=== PATIENT | female | born 1950 | race Caucasian/White ===

== ENCOUNTER 2018-04-20 20:26 | Observation (INO) ==
[2018-04-20 21:04] LABS: Hematocrit (blood only) 39.4 % (37-47); Hemoglobin 13.8 g/dL (12.0-16.0); Mean Corpuscular Volume 92.7 fL (80-100); Mean Platelet Volume 9.5 fL (7.4-10.4); Platelet Count 290 K/uL (130-400); RDW Coefficient of Variation 13.1 % (11.5-14.5); RDW Standard Deviation 44.3 fL (36.4-46.3); Red Blood Count 4.25 M/uL (4.2-5.4); White Blood Count 6.99 K/uL (4.8-10.8)
[2018-04-20 21:10] LABS: Albumin Level 4.2 gm/dl (3.4-5.0); BUN Creatinine Ratio 10.4 (10-20); Blood Urea Nitrogen 9 mg/dl (7-18); Calcium 9.4 mg/dl (8.5-10.1); Carbon Dioxide 25 mmol/L (21-32); Chloride 99 mmol/L (98-107); Creatinine Clr Calc Pharmacy 67.3 ml/min; Est GFR (African American) 78.8; Glucose 84 mg/dl (70-99); Potassium 3.8 mmol/L (3.5-5.1); Sodium 133 mmol/L (136-145)
[2018-04-20 21:13] LABS: INR 0.9 (0.9-1.1); Partial Thromboplastin Ratio 1.1; Partial Thromboplastin Time 29.2 Seconds (21.0-31.0); Prothrombin Time 9.5 Seconds (9.0-12.0)
[2018-04-20 21:15] LABS: Alanine Aminotransferase 41 U/L (12-78); Alkaline Phosphatase 91 U/L (45-117); Aspartate Aminotransferase 23 U/L (15-37); Bilirubin,Total 0.3 mg/dl (0.2-1); Globulin 4.2 gm/dl (2.5-4.0); Total Protein 8.4 gm/dl (6.4-8.2); Troponin I < 0.015 ng/ml (0-0.045)
[2018-04-20 21:21] LABS: Basophils # (auto) 0.01 K/uL (0-0.2); Basophils % (auto) 0.1 %; Eosinophils # (auto) 0.13 K/uL (0-0.5); Eosinophils % (auto) 1.9 %; Immature Granulocytes # (auto) 0.01 K/uL (0.00-0.02); Immature Granulocytes % (auto) 0.1 %; Lymphocytes # (auto) 3.66 K/uL (1.2-3.4); Lymphocytes % (auto) 52.4 %; Monocytes # (auto) 0.48 K/uL (0.11-0.59); Monocytes % (auto) 6.9 %; Neutrophils % (auto) 38.6 %
--- NOTE | 2018-04-20 21:30 | XRay Report ---
XR chest 1V portable HISTORY: Atypical Chest Pain COMPARISON: Chest 01/26/2016. FINDINGS: No pleural fusions. No pneumothorax. The heart is enlarged. There is mild central pulmonary vascular congestion without overt edema. Right basilar linear densities are noted. The left lung is otherwise clear. IMPRESSION: 1. Cardiomegaly with mild central pulmonary vascular congestion. 2. Right basilar linear densities are nonspecific but favor subsegmental atelectasis. Electronically signed by: Dougie Ledezma M.D. 04/20/2018 9:28 PM
[2018-04-20] MEDS ORDERED: NITROGLYCERIN 2% OINTMENT 30GM TUBE EXT STA (23:01)
[2018-04-20] MEDS ORDERED: ACETAMINOPHEN 500 MG TAB PO STA (23:01)
[2018-04-21 00:55] LABS: Magnesium 1.9 mg/dl (1.8-2.4)
[2018-04-21] MEDS ORDERED: OPTIRAY 320 125ml IV PRN (01:50)
[2018-04-21 01:52] LABS: NT Pro B Type Natriuretic Pept 92 pg/ml (0-900)
--- NOTE | 2018-04-21 02:07 | Emergency Department Note ---
Entered by Kayode Mera acting as a scribe for Bari Concepcion MD ED Provider Note CHIEF COMPLAINT: Chest pain HISTORY OF PRESENT ILLNESS: The patient is a 67 year old female who presents to the Emergency Room with complaints of intermittent chest pain beginning three days ago. The patient states she has been experiencing chest pain and back pain that radiates to her arms and back of the head intermittently for the past three days. She reports she has also been experiencing intermittent dizzy spells for some time now. The patient notes she was at a wrestling match this evening when she suddenly experienced her chest pain, back pain, arm pain, neck pain, and dizziness all together. She states she felt very lightheaded and almost passed out. The patient reports this was the first time all of her symptoms happened at the same time. She notes she she was given 324mg of aspirin, 3 nitroglycerin, and 4mg of Zofran. The patient states the nitroglycerin took her pain from a 10/10 to a 4/10. She reports her symptoms come on randomly, and exertion or stress do not trigger her pain. The patient notes she has not had new stressors although she does work in a stressful job. She states she has not told anyone about her symptoms, and she has had a lot of indigestion this week. The patient reports she has had shortness of breath on exertion but no chest pain on exertion. She notes a history of HLD, HTN, and a family history of heart disease. The patient states her PCP is Charline Navarro. Pt denies LOC, headache, fevers, chills, diaphoresis, visual changes, vomiting, abdominal pain, melena, hematochezia, urinary symptoms, numbness, weakness, lymphadenopathy, rash, or other complaints. REVIEW OF SYSTEMS: See HPI for pertinent positives and negatives. A total of ten systems were reviewed and were otherwise negative. PMHx/PSHx: HLD HTN SOCIAL HISTORY: Patient lives at home. PHYSICAL EXAM: GENERAL: Awake, alert, well-appearing, in no distress HENT: Normocephalic, atraumatic. Oropharynx unremarkable. EYES: Normal conjunctiva. Sclera non-icteric. NECK: Inspection normal. Non-tender. Supple. No nuchal rigidity. FROM. No masses. RESPIRATORY: Clear to auscultation. No wheezes. No rales. Normal respiratory effort. CARDIAC: Normal rate. Normal rhythm. No murmurs. No rubs. Extremities warm and well perfused. Pulses equal. No JVD. GI: Soft, non-distended. No tenderness to palpation. No rebound or guarding. No masses. RECTAL: Deferred. MUSCULOSKELETAL: Atraumatic. Chest examination reveals no tenderness. The back is symmetrical on inspection without obvious abnormality. There is no CVA tenderness to palpation. No joint edema. LOWER EXTREMITIES: Calves are equal size bilaterally and non-tender. No edema. No discoloration. NEURO: Normal sensorium. No sensory or motor deficits noted. SKIN: No rash or jaundice noted. EMERGENCY DEPARTMENT COURSE: 2147: Past medical records reviewed. The patient was evaluated in room A09A, and a complete history and physical examination were performed. 2341: I reevaluated the patient and discussed the findings with her. She verbalized agreement to a hospitalist evaluation and the treatment plan. The patient will be evaluated for further management and care. 2359: I discussed with the patient the treatment plan and the agree to it. Patient will be admitted under Dr. Luna's care. MEDICAL DECISION MAKING: Triage Nursing notes reviewed. The patient's presentation and history were concerning for chest pain. Etiologies such as cardiac ischemia, myocarditis, pericarditis, aortic dissection, pulmonary embolism, pneumonia, pneumothorax, musculoskeletal, infections, gastrointestinal, as well as others were entertained. Patient was evaluated. Prehospital ECG did not reveal any ST elevation or depression. Repeat ECG here did not reveal any ST elevation or depression. She did receive aspirin and nitro prehospital. The nitro did help with her pain. She was given Tylenol Nitropaste here. On reassessment she was doing better. The patient's CBC and chemistry panel were unremarkable. Cardiac troponin was negative. The patient has multiple risk factors for coronary artery disease. I discussed further management in the hospital. The patient felt comfortable with the plan. I gave my usual and customary discussion regarding this issue. [facility] Patient was evaluated in the ER and admitted for further treatment. IMPRESSION: Chest pain, precordial PLAN: Admit Scribe Attestation: The scribe's documentation has been prepared under my direction and personally reviewed by me in its entirety. I confirm that the note above accurately reflects all work, treatment, procedures, and medical decision making performed by me. Impression & Plan Chest pain, precordial Past Med/Surg History Medical History Hyperlipidemia Bronchitis Hypertension Surgical History Status post lumbar surgery Family History Other FHx: heart disease Social History marital status: Current Living Situation: Spouse current occupational status: employed Feels Safe at Home: Yes Smoking Status: Never smoker Hx Alcohol Use: Yes Beliefs That Will Affect Care: None Preferred Language: Macedonian Communication Ability: Effective Visual Impairment: No Limitations Hearing Ability: Normal Results & Data Vital Signs Vital Signs - 24 hr 04/20/18 20:42 04/20/18 21:46 04/20/18 22:24 Temperature 36.7 C Temperature Source Oral Sepsis Recent Fever Within 48 Hours No Sepsis New/Unexplained Change in Mental Status No Sepsis Action Taken by Nursing No Action Required Pulse Rate 65 Pulse Rate [Right Finger] 66 69 Pulse Rhythm Regular Pulse Strength Normal Respiratory Rate 18 18 18 Respiratory Effort / Characteristics Non-Labored Respiratory Depth Normal Respiratory Pattern Regular Blood Pressure 143/83 H Blood Pressure [Left Arm] 153/83 H 150/87 H Blood Pressure [Right Arm] 160/76 H Blood Pressure Mean 103 Blood Pressure Mean [Left Arm] 106 108 Blood Pressure Mean [Right Arm] 104 Blood Pressure Position Lying Blood Pressure Position [Left Arm] Blood Pressure Position [Right Arm] Lying Pulse Oximetry 98 98 99 Oxygen Delivery Method Room Air 04/20/18 23:17 04/21/18 00:08 04/21/18 01:01 Temperature Temperature Source Sepsis Recent Fever Within 48 Hours Sepsis New/Unexplained Change in Mental Status Sepsis Action Taken by Nursing Pulse Rate Pulse Rate [Right Finger] 71 73 71 Pulse Rhythm Pulse Strength Respiratory Rate 17 17 16 Respiratory Effort / Characteristics Non-Labored Spontaneous Respiratory Depth Normal Respiratory Pattern Regular Blood Pressure Blood Pressure [Left Arm] 168/96 H 144/70 H 136/75 Blood Pressure [Right Arm] Blood Pressure Mean Blood Pressure Mean [Left Arm] 120 94 95 Blood Pressure Mean [Right Arm] Blood Pressure Position Blood Pressure Position [Left Arm] Sitting Blood Pressure Position [Right Arm] Pulse Oximetry 98 95 95 Oxygen Delivery Method Room Air Room Air Room Air 04/21/18 01:53 Temperature Temperature Source Sepsis Recent Fever Within 48 Hours Sepsis New/Unexplained Change in Mental Status Sepsis Action Taken by Nursing Pulse Rate Pulse Rate [Right Finger] 67 Pulse Rhythm Pulse Strength Respiratory Rate 16 Respiratory Effort / Characteristics Respiratory Depth Respiratory Pattern Blood Pressure Blood Pressure [Left Arm] 139/64 Blood Pressure [Right Arm] Blood Pressure Mean Blood Pressure Mean [Left Arm] 89 Blood Pressure Mean [Right Arm] Blood Pressure Position Blood Pressure Position [Left Arm] Blood Pressure Position [Right Arm] Pulse Oximetry 92 Oxygen Delivery Method Room Air Home Medications Current Medication List: was personally reviewed by me Laboratory Data Attestation: I reviewed the patient's lab results. Result diagrams: 04/20/18 20:15 04/20/18 20:15 Lab Results 04/20/18 04/20/18 04/20/18 Range/Units 20:15 20:15 20:15 WBC 6.99 (4.8-10.8) K/uL RBC 4.25 (4.2-5.4) M/uL Hgb 13.8 (12.0-16.0) g/dL Hct 39.4 (37-47) % MCV 92.7 (80-100) fL MCH 32.5 (25-34) pg MCHC 35.0 (32-36) g/dL RDW Std Deviation 44.3 (36.4-46.3) fL RDW Coeff of [place]ita 13.1 (11.5-14.5) % Plt Count 290 (130-400) K/uL MPV 9.5 (7.4-10.4) fL Immature Gran % (Auto) 0.1 % Neut % (Auto) 38.6 % Lymph % (Auto) 52.4 % [place] % (Auto) 6.9 % Eos % (Auto) 1.9 % Baso % (Auto) 0.1 % Immature Gran # (Auto) 0.01 (0.00-0.02) K/uL Neut # (Auto) 2.70 (1.4-6.5) K/uL Lymph # (Auto) 3.66 H (1.2-3.4) K/uL [place] # (Auto) 0.48 (0.11-0.59) K/uL Eos # (Auto) 0.13 (0-0.5) K/uL Baso # (Auto) 0.01 (0-0.2) K/uL PT 9.5 (9.0-12.0) Seconds INR 0.9 (0.9-1.1) APTT 29.2 (21.0-31.0) Seconds PTT Ratio 1.1 Sodium 133 L (136-145) mmol/L Potassium 3.8 (3.5-5.1) mmol/L Chloride 99 (98-107) mmol/L Carbon Dioxide 25 (21-32) mmol/L Anion Gap 8.0 (3-11) BUN 9 (7-18) mg/dl Creatinine 0.89 (0.6-1.2) mg/dl Est Cr Clr Drug Dosing 67.3 ml/min Est GFR ( Amer) 78.8 Est GFR (Non-Af Amer) 68.0 BUN/Creatinine Ratio 10.4 (10-20) Glucose 84 (70-99) mg/dl Calcium 9.4 (8.5-10.1) mg/dl Magnesium 1.9 (1.8-2.4) mg/dl Total Bilirubin 0.3 (0.2-1) mg/dl AST 23 (15-37) U/L ALT 41 (12-78) U/L Alkaline Phosphatase 91 (45-117) U/L Troponin I < 0.015 (0-0.045) ng/ml NT-Pro-B Natriuret Pep 92 (0-900) pg/ml Total Protein 8.4 H (6.4-8.2) gm/dl Albumin 4.2 (3.4-5.0) gm/dl Globulin 4.2 H (2.5-4.0) gm/dl Albumin/Globulin Ratio 1.0 (0.9-2) Lipase 155 (73-393) U/L Administered Medications Ioversol (Optiray 320 125ml) 118 ml IV ONCE PRN PRN Reason: Interaction Checking Stop: 04/25/18 01:49 Last Admin: 04/21/18 01:51 Dose: 1 ml Discontinued Medications Acetaminophen (Tylenol) 1,000 mg PO NOW STA Stop: 04/20/18 23:02 Last Admin: 04/20/18 23:19 Dose: 1,000 mg Nitroglycerin (Nitro-Bid 2%) 0.5 inch EXT NOW STA Stop: 04/20/18 23:02 Last Admin: 04/20/18 23:19 Dose: 0.5 inch Imaging Data Radiologist's Impression: Radiology results as stated below per my review and the radiologist's interpretation: XR chest 1V portable HISTORY: Atypical Chest Pain COMPARISON: Chest 01/26/2016. FINDINGS: No pleural fusions. No pneumothorax. The heart is enlarged. There is mild central pulmonary vascular congestion without overt edema. Right basilar linear densities are noted. The left lung is otherwise clear. IMPRESSION: 1. Cardiomegaly with mild central pulmonary vascular congestion. 2. Right basilar linear densities are nonspecific but favor subsegmental atelectasis. ECG Data Attestation: I personally reviewed and interpreted this ECG as follows: Indication: chest pain Rate (beats per minute): 65 Rhythm: normal sinus Findings: + prolonged QT; no PAC, no PVC, no ST depression and no ST elevation Comparison ECG Date: from (01/26/2016) Change: no significant change Additional Comments: EKG 2 Normal Sinus [address] elevation, no ST depression, NO PAC, NO PVC, no significant change from first Pre Hospital Normal Sinus at [address] elevation, no ST depression, NO PAC, NO PVC, no significant change from first Blood Pressure Blood Pressure Findings: Elevated blood pressure Blood Pressure Disposition: further management by hospitalist Discharge Plan Visit Data Chief Complaint: Chest Pain Stated Complaint: CHEST PAIN ED Provider: Bari Concepcion Discharge Problem: Chest pain, precordial Patient Disposition: Being Evaluated by Hospitalist Forms Stand Alone Forms: Call Back Authorization, [facility] Prescriptions Prescriptions: No Action meclizine 12.5 mg Tablet 12.5 mg PO TID PRN (Reason: dizzy) RF: 0 buspirone 10 mg Tablet 10 mg PO BID RF: 0 fluticasone [Flonase Allergy Relief] 50 mcg/actuation [place],Suspension 2 spray INTRANASAL DAILY RF: 0 escitalopram oxalate [Lexapro] 20 mg Tablet 20 mg PO DAILY RF: 0 bupropion HCl 150 mg Tablet Sustained-Release 12 Hr 150 mg PO BID RF: 0 atorvastatin [Lipitor] 10 mg Tablet 10 mg PO DAILY RF: 0 levothyroxine 75 mcg Tablet 75 mcg PO DAILY RF: 0 losartan 25 mg Tablet 25 mg PO DAILY RF: 0 omeprazole 20 mg Capsule,Delayed Release(Dr/Ec) 20 mg PO DAILY RF: 0 vitamin B complex Tablet 1 tab PO DAILY RF: 0 ranitidine HCl 150 mg Capsule 150 mg PO BID RF: 0 albuterol sulfate 90 mcg/actuation Hfa Aerosol Inhaler 2 puff INHALATION QID PRN (Reason: Shortness Of Breath) RF: 0 cholecalciferol (vitamin D3) [Vitamin D3] 2,000 unit Capsule 2,000 unit PO DAILY RF: 0 Referrals Referrals: Cecilia Quarles DO [Primary Care Provider] - The scribe's documentation has been prepared under my direction and personally reviewed by me in its entirety. I confirm that the note above accurately reflects all work, treatment, procedures, and medical decision making performed by me.
--- NOTE | 2018-04-21 02:22 | History & Physical Report ---
Date of Service April 21, 2018 Assessment & Plan (1) Chest pain: Headache, neck pain symptoms secondary to hypertensive urgency Unclear precipitant hypothyroidism, on levothyroxine mood disorder, symptoms at baseline OBS Medical telemetry Titrate home Losartan TTE RE chest pain Check TSH DVT prophylaxis. Lovenox subcu Full code History of Present Illness Chief Complaint: Chest pain Primary Care Provider: Cecilia Quarles History obtained from patient and records. Medical history significant for hypertension, hypothyroidism, mood disorder. 3 days history of substernal discomfort going to both arms, neck and head, and shoulder blades. No unusual stress, dietary indiscretion, or trauma. SBP noted to be 200s today while watching a wrestling match. Some improvement of chest pain after nitroglycerin intake. Allergies Allergy/AdvReac Type Severity Reaction Status Date / Time Sulfa (Sulfonamide Allergy Unknown Unknown Verified 04/20/18 21:53 Antibiotics) codeine AdvReac Intermediate CONFUSION Verified 04/20/18 21:53 Home Medications Home Medications Medication Instructions Recorded Confirmed Type albuterol sulfate 2 puff INHALATION QID PRN 11/25/17 04/20/18 History atorvastatin [Lipitor] 10 mg PO DAILY 11/25/17 04/20/18 History bupropion HCl 150 mg PO BID 11/25/17 04/20/18 History cholecalciferol (vitamin D3) 2,000 unit PO DAILY 11/25/17 04/20/18 History [Vitamin D3] levothyroxine 75 mcg PO DAILY 11/25/17 04/20/18 History losartan 25 mg PO DAILY 11/25/17 04/20/18 History omeprazole 20 mg PO DAILY 11/25/17 04/20/18 History ranitidine HCl 150 mg PO BID 11/25/17 04/20/18 History vitamin B complex 1 tab PO DAILY 11/25/17 04/20/18 History buspirone 10 mg PO BID 04/20/18 04/20/18 History escitalopram oxalate [Lexapro] 20 mg PO DAILY 04/20/18 04/20/18 History fluticasone [Flonase Allergy 2 spray INTRANASAL DAILY 04/20/18 04/20/18 History Relief] meclizine 12.5 mg PO TID PRN 04/20/18 04/20/18 History Past Med/Surg History Medical History Hyperlipidemia Bronchitis Hypertension Surgical History Status post lumbar surgery Family History Other FHx: heart disease Social History marital status: Current Living Situation: Spouse Current Living Situation Comment: Lives with spouse current occupational status: employed 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 Other Information That Helps Us Care for You: No Feels Safe at Home: Yes Safety Concerns: Feels Safe At This Time Smoking Status: Never smoker Hx Alcohol Use: Yes Alcohol type: wine Alcohol Intake Frequency: 0-2 drinks per day Hx Substance Use: No Beliefs That Will Affect Care: None Preferred Language: Zimbabwean Communication Ability: Effective 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 Gig 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 Required: No Review of Systems As per HPI, all 10 systems reviewed, all other ROS negative Physical Exam 2 Vital Signs (Past 24 Hours): Last Vital Signs Temp 36.7 C 04/20/18 20:42 Pulse 67 04/21/18 01:53 Resp 16 04/21/18 01:53 BP 139/64 04/21/18 01:53 Pulse Ox 92 04/21/18 01:53 Physical Exam: GENERAL: Comfortable, slightly anxious, pleasant, obese, no respiratory distress SKIN: Normal color, warm HEENT: [place] palpebral conjunctivae, no ptosis, dry buccal mucosa NECK : Supple, short, no tenderness CHEST : CTA, no tenderness HEART : RRR, no obvious murmurs ABDOMEN: Some distention, nontender EXTREMITIES : No LE swelling/tenderness, no other conspicuous deformities noted NEUROLOGIC : Coherent, no facial asymmetry, no other gross focality Results & Data Laboratory Results Laboratory Results WBC 6.99 K/uL (4.8-10.8) 04/20/18 20:15 RBC 4.25 M/uL (4.2-5.4) 04/20/18 20:15 Hgb 13.8 g/dL (12.0-16.0) 04/20/18 20:15 Hct 39.4 % (37-47) 04/20/18 20:15 MCV 92.7 fL (80-100) 04/20/18 20:15 MCH 32.5 pg (25-34) 04/20/18 20:15 MCHC 35.0 g/dL (32-36) 04/20/18 20:15 RDW Std Deviation 44.3 fL (36.4-46.3) 04/20/18 20:15 RDW Coeff of Clarita 13.1 % (11.5-14.5) 04/20/18 20:15 Plt Count 290 K/uL (130-400) 04/20/18 20:15 MPV 9.5 fL (7.4-10.4) 04/20/18 20:15 Immature Gran % (Auto) 0.1 % 04/20/18 20:15 Neut % (Auto) 38.6 % 04/20/18 20:15 Lymph % (Auto) 52.4 % 04/20/18 20:15 [place] % (Auto) 6.9 % 04/20/18 20:15 Eos % (Auto) 1.9 % 04/20/18 20:15 Baso % (Auto) 0.1 % 04/20/18 20:15 Immature Gran # (Auto) 0.01 K/uL (0.00-0.02) 04/20/18 20:15 Neut # (Auto) 2.70 K/uL (1.4-6.5) 04/20/18 20:15 Lymph # (Auto) 3.66 K/uL (1.2-3.4) H 04/20/18 20:15 [place] # (Auto) 0.48 K/uL (0.11-0.59) 04/20/18 20:15 Eos # (Auto) 0.13 K/uL (0-0.5) 04/20/18 20:15 Baso # (Auto) 0.01 K/uL (0-0.2) 04/20/18 20:15 PT 9.5 Seconds (9.0-12.0) 04/20/18 20:15 INR 0.9 (0.9-1.1) 04/20/18 20:15 APTT 29.2 Seconds (21.0-31.0) 04/20/18 20:15 PTT Ratio 1.1 04/20/18 20:15 Sodium 133 mmol/L (136-145) L 04/20/18 20:15 Potassium 3.8 mmol/L (3.5-5.1) 04/20/18 20:15 Chloride 99 mmol/L (98-107) 04/20/18 20:15 Carbon Dioxide 25 mmol/L (21-32) 04/20/18 20:15 Anion Gap 8.0 (3-11) 04/20/18 20:15 BUN 9 mg/dl (7-18) 04/20/18 20:15 Creatinine 0.89 mg/dl (0.6-1.2) 04/20/18 20:15 Est Cr Clr Drug Dosing 67.3 ml/min 04/20/18 20:15 Est GFR ( Amer) 78.8 04/20/18 20:15 Est GFR (Non-Af Amer) 68.0 04/20/18 20:15 BUN/Creatinine Ratio 10.4 (10-20) 04/20/18 20:15 Glucose 84 mg/dl (70-99) 04/20/18 20:15 Calcium 9.4 mg/dl (8.5-10.1) 04/20/18 20:15 Magnesium 1.9 mg/dl (1.8-2.4) 04/20/18 20:15 Total Bilirubin 0.3 mg/dl (0.2-1) 04/20/18 20:15 AST 23 U/L (15-37) 04/20/18 20:15 ALT 41 U/L (12-78) 04/20/18 20:15 Alkaline Phosphatase 91 U/L (45-117) 04/20/18 20:15 Troponin I < 0.015 ng/ml (0-0.045) 04/20/18 20:15 NT-Pro-B Natriuret Pep 92 pg/ml (0-900) 04/20/18 20:15 Total Protein 8.4 gm/dl (6.4-8.2) H 04/20/18 20:15 Albumin 4.2 gm/dl (3.4-5.0) 04/20/18 20:15 Globulin 4.2 gm/dl (2.5-4.0) H 04/20/18 20:15 Albumin/Globulin Ratio 1.0 (0.9-2) 04/20/18 20:15 Lipase 155 U/L (73-393) 04/20/18 20:[address] head initial read no acute pathology CT angio initial read: No PE, no aortic dissection EKG as per my interpretation: Rate 60, NSR, T wave flattening inferior leads
[2018-04-21] MEDS ORDERED: LORazepam 0.5 MG/1 ML VIAL IV PRN (03:45)
[2018-04-21] MEDS ORDERED: NITROGLYCERIN SL 0.4 MG/TAB TAB SL PRN (03:45)
[2018-04-21] MEDS ORDERED: MoRPHine SULFATE 4 MG/ML 1 ML CARP\\VIAL IV PRN (03:45)
[2018-04-21] MEDS ORDERED: PROCHLORPERAZINE 5 MG in SYRINGE 4 ML IV PRN (03:45)
[2018-04-21] MEDS ORDERED: NSS + 20MEQ KCL 20 MEQ/1,000 ML BAG IV STA (04:05)
[2018-04-21] MEDS ORDERED: NSS + 20MEQ KCL 20 MEQ/1,000 ML BAG IV SCH (04:15)
[2018-04-21] MEDS: LOSARTAN POTASSIUM 50 MG TAB PO SCH (05:11)
[2018-04-21] MEDS: LEVOTHYROXINE SODIUM 75 MCG TABLET PO SCH (05:12)
[2018-04-21 06:22] LABS: Basophils # (auto) 0.01 K/uL (0-0.2); Basophils % (auto) 0.2 %; Eosinophils # (auto) 0.07 K/uL (0-0.5); Eosinophils % (auto) 1.3 %; Hematocrit (blood only) 36.3 % (37-47); Hemoglobin 12.4 g/dL (12.0-16.0); Lymphocytes # (auto) 1.99 K/uL (1.2-3.4); Lymphocytes % (auto) 35.8 %; Mean Corpuscular Hgb Conc 34.2 g/dL (32-36); Mean Platelet Volume 8.9 fL (7.4-10.4); Monocytes # (auto) 0.48 K/uL (0.11-0.59); Monocytes % (auto) 8.6 %; Neutrophils # (auto) 3.01 K/uL (1.4-6.5); Neutrophils % (auto) 54.1 %; Platelet Count 226 K/uL (130-400); RDW Coefficient of Variation 13.2 % (11.5-14.5); Red Blood Count 3.86 M/uL (4.2-5.4); White Blood Count 5.56 K/uL (4.8-10.8)
--- NOTE | 2018-04-21 06:43 | CT Scan Report ---
CT head/brain wo con CT DOSE: 537.48 mGy.cm HISTORY: Mental status change andrea TECHNIQUE: Multiaxial CT images of the head were performed without the use of intravenous contrast. A dose lowering technique was utilized adhering to the principles of ALARA. Comparison: 11/07/2014 Findings: The paranasal sinuses and mastoid air cells are clear. The calvarium and skull base are int act. The ventricles and sulci are within normal limits. There is no mass, hematoma, midline shift, or acute infarct. Impression: No acute intracranial abnormality. The above report was generated using voice recognition software. It may contain grammatical, syntax or spelling errors. Electronically signed by: Quentin Keith M.D. 04/21/2018 6:42 AM
[2018-04-21 06:56] LABS: BUN Creatinine Ratio 8.1 (10-20); Calcium 8.6 mg/dl (8.5-10.1); Creatinine Clr Calc Pharmacy 66.2 ml/min; Est GFR (African American) 74.7; Est GFR (Non-African American) 64.5; Potassium 4.1 mmol/L (3.5-5.1)
--- NOTE | 2018-04-21 07:30 | CT Scan Report ---
CT ANGIOGRAPHY OF THE CHEST, ABDOMEN, AND PELVIS CLINICAL HISTORY: Chest and back pain. Evaluate for dissection. COMPARISON STUDY: Chest radiograph April 20, 2018. TECHNIQUE: Before and following the IV administration of 118 mL of Optiray-320, helical axial images of the chest, abdomen and pelvis were obtained. Maximal intensity projections and sagittal and coron al reformats were viewed on an independent 3D workstation. IV contrast was administered without comp lication. Automated exposure control was utilized for the study. A dose lowering technique was util ized adhering to the principles of ALARA. CT DOSE: 1859.54 mGy.cm FINDINGS: Caliber of the thoracic aorta is normal. There is moderate plaque of the descending thorac ic aorta. There is no intramural hematoma or dissection within the thoracic aorta. The heart is mildl y enlarged. There is moderate coronary artery calcification. There is no pericardial effusion. No enl arged thoracic lymph nodes are present. No pulmonary emboli are identified. There is no consolidation to suggest pneumonia. No pneumothorax or pleural effusion is noted. Central airways are patent. Ther e are bilateral rib fractures are noted. Upper abdomen is unremarkable. IMPRESSION: 1. No thoracic aortic dissection. 2. No acute intrathoracic findings. 3. Mild cardiomegaly. 4. Moderate coronary artery calcification. Electronically signed by: Kashmir Davis M.D. 04/21/2018 7:29 AM
[2018-04-21] MEDS: BuPROPion SR 150 MG TABCR PO SCH ×2 (08:30→20:54)
[2018-04-21] MEDS: VITAMIN B COMPLEX TAB PO SCH (08:30)
[2018-04-21] MEDS: PANTOprazole 40 MG TAB PO SCH (08:30)
[2018-04-21] MEDS: ASPIRIN 81 MG ECTAB PO SCH (08:30)
[2018-04-21] MEDS: ATORVASTATIN 10 MG TAB PO SCH (08:30)
[2018-04-21] MEDS: FLUTICASONE PROPIONATE NA SPR 16 GM BTL NAE SCH (08:31)
[2018-04-21] MEDS: TRAMADOL HCL 50 MG TABLET PO PRN ×2 (08:38→18:46)
[2018-04-21] MEDS: ENOXAPARIN INJ 40 MG/0.4 ML SYR SQ SCH (08:40)
[2018-04-21] MEDS: ACETAMINOPHEN 325 MG TAB PO PRN (10:35)
[2018-04-21] MEDS ORDERED: MECLIZINE 12.5 MG TAB PO PRN (11:09)
[2018-04-21] MEDS: DOXYCYCLINE HYCLATE 100 MG CAP PO SCH ×2 (12:17→20:54)
--- NOTE | 2018-04-21 17:47 | Hospitalist Progress Note ---
Date of Service April 21, 2018 Assessment & Plan (1) Chest pain: Headache Likely secondary to hypertension and possible sinusitits CT head: No acute intracranial abnormality. Started on Doxycyline for possible sinusititis Better BP control Chest Pain: --CTA: No thoracic aortic dissection. No acute intrathoracic findings. Mild cardiomegaly. Moderate coronary artery calcification. --ECHO:No segmental wall motion abnormalities --Troponin X 2: Negative --Chest pain likely secondary to HTN --Improving Hypertensive Urgency: Losartan dose increased to 50mg daily Monitor Chronic Vertigo: Meclizine PRN Advised to FU with ENT as outpatient Hypothyroidism Continue levothyroxine Elevated TSH Repeat labs in AM Mood disorder: Continue home meds DVT Px: Lovenox SQ Code Status: Full Code Subjective Patient is seen and examined at bedside Patient states chest pain much improved Reports sinus pressure associated with headache Denies dyspnea, change in vision Reports chronic vertigo Physical Exam 2 Vital Signs (Past 24 Hours): Last Vital Signs Temp 36.8 C 04/21/18 15:36 Pulse 68 04/21/18 16:00 Resp 18 04/21/18 15:36 BP 155/87 H 04/21/18 15:36 Pulse Ox 93 04/21/18 15:36 Physical Exam: Physical Exam: Vitals signs as noted above General Appearance:Obese, no apparent distress Head: normocephalic, Atraumatic, Mild sinus tenderness Eyes: normal inspection, EOMI Neck: supple, Trachea midline Respiratory/Chest: Normal breath sounds, CTA Cardiovascular: S1, S2, No murmur Abdomen/GI:Soft, Non tender, Bowel sounds present Extremities/Musculoskelatal:normal inspection, no edema Neurologic/Psych:AAOX3, grossly no focal neurological deficits Skin: normal color, warm Results & Data Laboratory Results Short CBC 04/20/18 04/21/18 Range/Units 20:15 06:12 WBC 6.99 5.56 (4.8-10.8) K/uL Hgb 13.8 12.4 (12.0-16.0) g/dL Hct 39.4 36.3 L (37-47) % Plt Count 290 226 (130-400) K/uL BMP 04/20/18 04/21/18 20:15 06:12 Sodium 133 L 135 L Potassium 3.8 4.1 Chloride 99 101 Carbon Dioxide 25 27 BUN 9 8 Creatinine 0.89 0.93 Glucose 84 91 Calcium 9.4 8.6 Cardiac Enzymes 04/20/18 04/21/18 Range/Units 20:15 02:47 Troponin I < 0.015 < 0.015 (0-0.045) ng/ml Liver Function 04/20/18 Range/Units 20:15 Total Bilirubin 0.3 (0.2-1) mg/dl AST 23 (15-37) U/L ALT 41 (12-78) U/L Alkaline Phosphatase 91 (45-117) U/L Albumin 4.2 (3.4-5.0) gm/dl
[2018-04-22] MEDS: LEVOTHYROXINE SODIUM 75 MCG TABLET PO SCH (06:14)
[2018-04-22 07:51] LABS: T4 Free Thyroxine 1.12 ng/dl (0.8-1.6)
[2018-04-22] MEDS: LOSARTAN POTASSIUM 50 MG TAB PO SCH (08:10)
[2018-04-22] MEDS: BuPROPion SR 150 MG TABCR PO SCH (08:10)
[2018-04-22] MEDS: PANTOprazole 40 MG TAB PO SCH (08:10)
[2018-04-22] MEDS: ASPIRIN 81 MG ECTAB PO SCH (08:11)
[2018-04-22] MEDS: DOXYCYCLINE HYCLATE 100 MG CAP PO SCH (08:11)
[2018-04-22] MEDS: VITAMIN B COMPLEX TAB PO SCH (08:11)
[2018-04-22] MEDS: ATORVASTATIN 10 MG TAB PO SCH (08:11)
[2018-04-22] MEDS: FLUTICASONE PROPIONATE NA SPR 16 GM BTL NAE SCH (08:11)
[2018-04-22] MEDS: ENOXAPARIN INJ 40 MG/0.4 ML SYR SQ SCH (08:12)
[2018-04-22] MEDS: ACETAMINOPHEN 325 MG TAB PO PRN (08:16)
[2018-04-22] MEDS ORDERED: AMLODIPINE BESYLATE 5 MG TAB PO ONE (10:30)
--- NOTE | 2018-04-22 14:38 | Hospitalist Progress Note ---
Date of Service April 22, 2018 Assessment & Plan (1) Chest pain: Headache Likely secondary to hypertension and possible sinusitits CT head: No acute intracranial abnormality. Continue Doxycyline for possible sinusititis Better BP control Chest Pain: --CTA: No thoracic aortic dissection. No acute intrathoracic findings. Mild cardiomegaly. Moderate coronary artery calcification. --ECHO:No segmental wall motion abnormalities --Troponin X 2: Negative --Chest pain likely secondary to HTN --Chest pain resolved Hypertensive Urgency: Losartan dose increased to 50mg daily Added Coreg Monitor Chronic Vertigo: Meclizine PRN Advised to FU with ENT as outpatient Hypothyroidism Continue levothyroxine Mood disorder: Continue home meds DVT Px: Lovenox SQ Code Status: Full Code Subjective Patient is seen and examined at bedside Doing much better today Chest pain/discomfort resolved Headche is improving Denies dyspnea, change in vision Reports chronic vertigo Family at bedside Physical Exam 2 Vital Signs (Past 24 Hours): Last Vital Signs Temp 36.7 C 04/22/18 11:42 Pulse 74 04/22/18 13:30 Resp 18 04/22/18 11:42 BP 161/89 H 04/22/18 13:30 Pulse Ox 91 04/22/18 11:42 Physical Exam: Physical Exam: Vitals signs as noted above General Appearance:Obese, no apparent distress Head: normocephalic, Atraumatic, Mild sinus tenderness Eyes: normal inspection, EOMI Neck: supple, Trachea midline Respiratory/Chest: Normal breath sounds, CTA Cardiovascular: S1, S2, No murmur Abdomen/GI:Soft, Non tender, Bowel sounds present Extremities/Musculoskelatal:normal inspection, no edema Neurologic/Psych:AAOX3, grossly no focal neurological deficits Skin: normal color, warm
--- NOTE | 2018-04-22 14:43 | Discharge Summary ---
Date of Service April 22, 2018 Admission HPI Per Admitting Provider History obtained from patient and records. Medical history significant for hypertension, hypothyroidism, mood disorder. 3 days history of substernal discomfort going to both arms, neck and head, and shoulder blades. No unusual stress, dietary indiscretion, or trauma. SBP noted to be 200s today while watching a wrestling match. Some improvement of chest pain after nitroglycerin intake. Admission Exam Per Admitting Provider GENERAL: Comfortable, slightly anxious, pleasant, obese, no respiratory distress SKIN: Normal color, warm HEENT: [place] palpebral conjunctivae, no ptosis, dry buccal mucosa NECK : Supple, short, no tenderness CHEST : CTA, no tenderness HEART : RRR, no obvious murmurs ABDOMEN: Some distention, nontender EXTREMITIES : No LE swelling/tenderness, no other conspicuous deformities noted NEUROLOGIC : Coherent, no facial asymmetry, no other gross focality Principal Diagnosis Discharge Information Discharge Diagnosis Atypical Chest pain Hypertensive Urgency Possible sinusitis Discharge Goals Decrease discomfort,Improve disease control, Improve function Discharge Activity Limitations Resume your previous activity Discharge Data Allergies Allergy/AdvReac Type Severity Reaction Status Date / Time Sulfa (Sulfonamide Allergy Unknown Unknown Verified 04/20/18 21:53 Antibiotics) codeine AdvReac Intermediate CONFUSION Verified 04/20/18 21:53 Consultations 04/21/18 00:04 ED Decision to Admit Stat Procedures Performed CT Head: No acute intracranial abnormality. Chest CTA: 1. No thoracic aortic dissection. 2. No acute intrathoracic findings. 3. Mild cardiomegaly. 4. Moderate coronary artery calcification. Ordered Studies 04/21/18 00:48 CT angio chest dissec wo/w con Urgent CT head/brain wo con [facility] Hospital Course (1) Chest pain: Headache Likely secondary to hypertension and possible sinusitits CT head: No acute intracranial abnormality. Continue Doxycyline for possible sinusititis Better BP control Chest Pain: --CTA: No thoracic aortic dissection. No acute intrathoracic findings. Mild cardiomegaly. Moderate coronary artery calcification. --ECHO:No segmental wall motion abnormalities --Troponin X 2: Negative --Chest pain likely secondary to HTN --Chest pain resolved Hypertensive Urgency: Losartan dose increased to 50mg daily Added Coreg Monitor Chronic Vertigo: Meclizine PRN Advised to FU with ENT as outpatient Hypothyroidism Continue levothyroxine Mood disorder: Continue home meds DVT Px: Lovenox SQ Code Status: Full Code Total Time Total Time Spent Total Time Spent (In Minutes): 32 minutes Total Time Includes: Examination of the Patient, Discharge Planning, Medication Reconciliation and Other Discharge Plan Discharge Items Patient Disposition: Home - Self-Care Reason For Visit: CP Discharge Diagnosis: Atypical Chest pain Hypertensive Urgency Possible sinusitis Discharge Goals: Decrease discomfort, Improve disease control and Improve function Activity: Resume your previous activity Non-emergency contact: Primary Care Provider Call non-emergency contact if: you have any medication questions, your symptoms worsen, your pain is not controlled, your pain is worsening, your pain is unusual for you, your pain is concerning for you and you have a fever Diet: Heart Healthy Addtl Provider Instructions: Follow up with your PCP in 1 week Complete the antibiotic course as prescribed Seek immediate medical attention if your symptoms reoccur or worsen Prescriptions: New losartan 50 mg Tablet 50 mg PO QAM 30 Days Qty: 30 RF: 0 doxycycline hyclate 100 mg Capsule 100 mg PO BID 6 Days Qty: 12 RF: 0 carvedilol 3.125 mg Tablet 3.125 mg PO BID 30 Days Qty: 60 RF: 0 Continue meclizine 12.5 mg Tablet 12.5 mg PO TID PRN (Reason: dizzy) RF: 0 buspirone 10 mg Tablet 10 mg PO BID RF: 0 fluticasone [Flonase Allergy Relief] 50 mcg/actuation [place],Suspension 2 spray INTRANASAL DAILY RF: 0 escitalopram oxalate [Lexapro] 20 mg Tablet 20 mg PO DAILY RF: 0 bupropion HCl 150 mg Tablet Sustained-Release 12 Hr 150 mg PO BID RF: 0 atorvastatin [Lipitor] 10 mg Tablet 10 mg PO DAILY RF: 0 levothyroxine 75 mcg Tablet 75 mcg PO DAILY RF: 0 omeprazole 20 mg Capsule,Delayed Release(Dr/Ec) 20 mg PO DAILY RF: 0 vitamin B complex Tablet 1 tab PO DAILY RF: 0 ranitidine HCl 150 mg Capsule 150 mg PO BID RF: 0 albuterol sulfate 90 mcg/actuation Hfa Aerosol Inhaler 2 puff INHALATION QID PRN (Reason: Shortness Of Breath) RF: 0 cholecalciferol (vitamin D3) [Vitamin D3] 2,000 unit Capsule 2,000 unit PO DAILY RF: 0 Discontinued losartan 25 mg Tablet 25 mg PO DAILY RF: 0 Stand-Alone Forms: [facility] Discharge Orders: Discharge Order (Routine); Ordered 04/22/18 Ordered By: Sheldon Aranda Admission Data Admit Date/Time: 04/21/18 02:35 Attending Provider: Sheldon Aranda Admit Provider: David Luna Primary Care Provider: Cecilia Quarles Other Providers: David Luna Service: Telemetry Other Interventions: Discharge Summary Assessment (RN) Last Done: 04/22/18 15:32 Pending Studies at Discharge: No DC Date/Time DO NOT enter until pt leaves facility: 04/22/18 16:13
[2018-04-22] MEDS ORDERED: CARVEDILOL 3.125 MG TAB PO SCH (21:00)
[2018-04-22] MEDS ORDERED: CARVEDILOL 6.25 MG TAB PO SCH (21:00)
[2018-04-23] MEDS ORDERED: AMLODIPINE BESYLATE 5 MG TAB PO SCH (09:00)
== END 2018-04-22 16:13 | disposition home or self-care (01) ==
LOC: 2N 20:26 → ED 20:26 → 2N 04-21 02:57

== ENCOUNTER 2019-03-04 16:43 | Inpatient (IN) ==
--- OUTSIDE RECORDS SUMMARY | 2019-03-04 16:45 | External Medical Summary | Continuity of Care Document ---
:1950 Author Name Jaja Mckeon Address Unavailable Unavailable , Care Team Providers Name Role Phone Celio Richter M.D. Unavailable [email or web address], [email or web address] Unavailable Unavailable Unavailable Unavailable Unavailable Problems Arthritis (716.90) (M19.90) Encounter for routine gynecological exam ination with Papanicolaou smear of cervix (V72.31) (Z01.419) Menopausal symptoms (627.2) (N95.1) Hypertension (401.9) (I10) Allergies and Adverse Reactions Sulfa Drugs (Allergy) Medications Omeprazole CPDR Refills: 0 Benicar TABS Refills: 0 Citalopram Hydrobromide TABS Refills: 0 Levothyroxine Sodium TABS Refills: 0 Astelin SOLN Refills: 0 Fexofenadine HCl TABS Refills: 0 Meloxicam TABS Refills: 0 Procedures Procedures not documented Immunizations Immunizations not documented Plan of Treatment Planned Observations Planned Goals not documented Results No Known Results Results not documented
[2019-03-04] MEDS ORDERED: ACETAMINOPHEN 500 MG TAB PO STA (17:04)
[2019-03-04] MEDS ORDERED: KETOROLAC TROMETHAMINE 15 MG/ML VIAL IV STA (17:04)
[2019-03-04] MEDS ORDERED: HydrALAZINE HCL 20 MG/ML VIAL IV STA (17:06)
[2019-03-04] MEDS ORDERED: SODIUM CHLORIDE 0.9% 500 ML IV SCH (17:15)
--- NOTE | 2019-03-04 17:21 | Emergency Department Note ---
Entered by Mona Burger acting as a scribe for History of Present Illness General Chief complaint: Headache Stated complaint: HEADACHE, BP REALLY HIGH, NOT COMPREHENDING THINGS Time Seen by Provider: 03/04/19 16:56 Source: patient History of Present Illness Onset (ago): week(s) 1 Location: head Severity: similar to prior episodes Pain Consistency: + intermittent Maximum Pain Intensity: 5 Current Pain Intensity: 5 Quality: + aching and + dull Relieved By: + medication (Excedrin) Exacerbated By: + other (deep breathing) Associated symptoms: + confusion, + chest pain (chest tightness), + headaches and + other (Positive right arm pain, hypertension, dysuria. Negative polyuria, diarrhea.); no nausea/vomiting Treatments prior to arrival: none The patient is a 68 year old female presenting to the Emergency Department complaining of intermittent headaches starting 1 week ago. The patient reports that she has been experiencing headaches located behind her face. She states that these headaches started after she had a migraine about a week ago. She explains that she took Excedrin that helped relieve her migraine. She notes that she currently has a headache and rates it 5/10. She states that her chest feels tight and that deep breathing worsens her chest tightness. She adds that there has been a dull, aching pain in her right arm for the past week. The patient reports that she became confused earlier today in [facility] but that this confusion has resolved. She states that once she got home from [facility] she took her blood pressure which was elevated. She notes that she has experienced hypertension before as her blood pressure medication had to be switched in December 2018. She adds that she has been experiencing dysuria. The patient reports that she didnt take any medications for her symptoms [employer]SEM[employer]. She denies polyuria, nausea, vomiting, diarrhea and medication non-compliance. Home Medications Home Medications Medication Instructions Recorded Confirmed Type albuterol sulfate 2 puff INHALATION QID PRN 11/25/17 03/04/19 History atorvastatin [Lipitor] 10 mg PO QAM 11/25/17 03/04/19 History bupropion HCl 150 mg PO BID 11/25/17 03/04/19 History cholecalciferol (vitamin D3) 2,000 unit PO QAM 11/25/17 03/04/19 History [Vitamin D3] levothyroxine 75 mcg PO QAM 11/25/17 03/04/19 History ranitidine HCl 150 mg PO BID 11/25/17 03/04/19 History vitamin B complex 1 tab PO HS 11/25/17 03/04/19 History buspirone 10 mg PO BID 04/20/18 03/04/19 History escitalopram oxalate [Lexapro] 20 mg PO QAM 04/20/18 03/04/19 History fluticasone propionate [Flonase 2 spray INTRANASAL QAM 04/20/18 03/04/19 History Allergy Relief] meclizine 12.5 mg PO TID PRN 04/20/18 03/04/19 History pantoprazole 40 mg PO QAM 03/04/19 03/04/19 History Allergies Allergy/AdvReac Type Severity Reaction Status Date / Time Sulfa (Sulfonamide Allergy Unknown Swelling Verified 03/04/19 17:36 Antibiotics) codeine AdvReac Intermediate CONFUSION Verified 03/04/19 17:36 Past Med/Surg History Medical History Bronchitis Hyperlipidemia Hypertension Surgical History Status post lumbar surgery Family History Other FHx: heart disease Social History Preferred Language: Niuean Communication Ability: Effective Visual Impairment: No Limitations Hearing Ability: Normal 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 and A total of 10 systems reviewed and were otherwise negative Physical Exam Vital Signs Vital Signs - 24 hr 03/04/19 16:47 03/04/19 17:20 03/04/19 17:31 Temperature 36.7 C Temperature Source Oral Pulse Rate 61 Pulse Rate [Apical] 61 Pulse Rhythm [Apical] Regular Respiratory Rate 18 18 Respiratory Effort / Characteristics Non-Labored Non-Labored Spontaneous Respiratory Depth Normal Normal Respiratory Pattern Regular Blood Pressure 180/104 H Blood Pressure [Right Arm] 172/97 H Blood Pressure Mean 129 Blood Pressure Mean [Right Arm] 122 Pulse Oximetry 98 94 Oxygen Delivery Method Room Air Room Air Room Air Sepsis Recent Fever Within 48 Hours No Sepsis New/Unexplained Change in Mental Status No Sepsis Action Taken by Nursing No Action Required GENERAL: Patient is in no acute distress. HEENT: No acute trauma, normocephalic atraumatic, mucous membranes moist, no nasal congestion, no scleral icterus. NECK: No stridor, no adenopathy, no meningismus, trachea is midline. LUNGS: Clear to auscultation bilaterally, no wheeze, no rhonchi, breath sounds equal. HEART: Without murmurs gallops or rubs, regular rate and rhythm. ABDOMEN: Soft, nontender, bowel sounds positive, no hernias, no peritonitis. EXTREMITIES: No cyanosis or edema, full range of motion of all the joints without pain or difficulty, no signs for acute trauma. NEUROLOGIC: No cerebellar deficits. No facial droop. No speech slur. No pronator drift. Oriented x 3, no acute motor or sensory deficits, no focal weakness. SKIN: No rash, no jaundice, no diaphoresis. Course Course 1657: The patient was evaluated in room B9, and a complete history and physical examination were performed. 1912: I updated the patient and her on the patients lab and imaging studies. 1831: I discussed the patients case with Dr. Milad Olivier hospitalist. He will evaluate the patient for further management. Administered Medications Discontinued Medications Acetaminophen (Tylenol) 1,000 mg PO NOW STA Stop: 03/04/19 17:05 Last Admin: 03/04/19 17:33 Dose: 1,000 mg Documented by: [id number] Aspirin (Aspirin) 324 mg PO NOW STA Stop: 03/04/19 18:18 Last Admin: 03/04/19 18:22 Dose: 324 mg Documented by: [id number] Hydralazine HCl (Hydralazine Hcl) 10 mg IV NOW STA Stop: 03/04/19 17:07 Last Admin: 03/04/19 17:33 Dose: 10 mg Documented by: [id number] Sodium Chloride (Nss) 500 mls @ 999 mls/hr IV .Q31M BLU Stop: 03/04/19 17:45 Last Infusion: 03/04/19 18:05 Dose: 0 mls/hr Documented by: [id number] Admin: 03/04/19 17:34 Dose: 999 mls/hr Documented by: [id number] Ketorolac Tromethamine (Toradol) 15 mg IV NOW STA Stop: 03/04/19 17:05 Last Admin: 03/04/19 17:34 Dose: 15 mg Documented by: [id number] Medical Decision Making Differential Diagnosis Differential diagnoses include uncontrolled hypertension, intracranial bleeding, flu-like illness, sinusitis, CVA, anemia, dehydration and electrolyte or metabolic imbalance amongst others. Medical Records Attestation: I reviewed the patient's medical records. Home Medications Current Medication List: was personally reviewed by me Laboratory Data Attestation: I reviewed the patient's lab results. Result diagrams: 03/04/19 17:24 03/04/19 17:24 Lab Results 03/04/19 03/04/19 Range/Units 17:24 17:24 WBC 5.57 (4.8-10.8) K/uL RBC 4.05 L (4.2-5.4) M/uL Hgb 12.9 (12.0-16.0) g/dL Hct 37.7 (37-47) % MCV 93.1 (80-100) fL MCH 31.9 (25-34) pg MCHC 34.2 (32-36) g/dL RDW Std Deviation 43.5 (36.4-46.3) fL RDW Coeff of [place]ita 12.8 (11.5-14.5) % Plt Count 231 (130-400) K/uL MPV 9.0 (7.4-10.4) fL Immature Gran % (Auto) 0.0 % Neut % (Auto) 45.0 % Lymph % (Auto) 47.4 % Cache % (Auto) 6.1 % Eos % (Auto) 1.3 % Baso % (Auto) 0.2 % Immature Gran # (Auto) 0.00 (0.00-0.02) K/uL Neut # (Auto) 2.51 (1.4-6.5) K/uL Lymph # (Auto) 2.64 (1.2-3.4) K/uL Cache # (Auto) 0.34 (0.11-0.59) K/uL Eos # (Auto) 0.07 (0-0.5) K/uL Baso # (Auto) 0.01 (0-0.2) K/uL Sodium 134 L (136-145) mmol/L Potassium 3.9 (3.5-5.1) mmol/L Chloride 99 (98-107) mmol/L Carbon Dioxide 30 (21-32) mmol/L Anion Gap 5.0 (3-11) BUN 14 (7-18) mg/dl Creatinine 0.80 (0.6-1.2) mg/dl Est Cr Clr Drug Dosing 74.9 ml/min Est GFR ( Amer) 89.0 Est GFR (Non-Af Amer) 76.8 BUN/Creatinine Ratio 18.0 (10-20) Glucose 86 (70-99) mg/dl Calcium 9.4 (8.5-10.1) mg/dl Magnesium 1.9 (1.8-2.4) mg/dl Total Bilirubin 0.3 (0.2-1) mg/dl AST 20 (15-37) U/L ALT 32 (12-78) U/L Alkaline Phosphatase 82 (45-117) U/L Troponin I < 0.015 (0-0.045) ng/ml Total Protein 8.0 (6.4-8.2) gm/dl Albumin 4.0 (3.4-5.0) gm/dl Globulin 4.0 (2.5-4.0) gm/dl Albumin/Globulin Ratio 1.0 (0.9-2) TSH 3.230 (0.300-4.500) uIu/ml Imaging Data Radiologist's Impression: Radiology results as stated below per my review and the radiologist's interpretation: CT head/brain wo con CLINICAL HISTORY: 68 years-old Female with headache, confusion. Acute headache with confusion TECHNIQUE: Multiple axial CT images of the head were obtained without contrast. A dose lowering technique was utilized adhering to the principles of ALARA. CT DOSE: 638.56 mGycm COMPARISON: Head CT 04/21/2018 FINDINGS: No acute intracranial hemorrhage, midline shift, intracranial mass, hydrocephalus, territorial ischemia or abnormal extra-axial collection. Age- related involutional changes. Patchy white matter hypodensities suggest chronic microvascular ischemic disease. Ill-defined 11 mm hypodensity within the periventricular white matter/head of the right caudate nucleus on image 12 series 12 appears new from prior. Remote subcentimeter acute infarctions of the bilateral basal ganglia. Cerebral vascular calcifications are noted. The calvarium is intact. The paranasal sinuses, mastoid air cells, and middle ear cavities are clear. IMPRESSION: 1. No acute intracranial hemorrhage, midline shift or acute territorial infarct. 2. Suggestion of mild chronic vascular ischemic disease. There is a new 11 mm ill-defined hypodense focus involving the periventricular white matter of the right frontal lobe adjacent to the right caudate nucleus suggestive of age- indeterminate lacunar infarction versus progressive chronic microvascular ischemic disease, new from 04/21/2018. Correlate with clinical presentation. ACT 112: Negative or not required by law. The above report was generated using voice recognition software. It may contain grammatical, syntax or spelling errors. Electronically signed by: Wagner Molina M.D. 03/04/2019 6:05 PM XR chest 1V portable HISTORY: 68 years-old Female weakness acute weakness COMPARISON: Chest radiograph 06/01/2018 TECHNIQUE: Portable AP view of the chest FINDINGS: Cardiac mediastinal and hilar silhouettes are unchanged. No pneumothorax, large pleural effusion or overt pulmonary edema. Minimal left basilar opacities suggest probable atelectasis. Mild degenerative changes of the shoulders and spine. IMPRESSION: No acute process. ACT 112: Negative or not required by law. The above report was generated using voice recognition software. It may contain grammatical, syntax or spelling errors. Electronically signed by: Wagner Molina M.D. 03/04/2019 5:31 PM ECG Data Attestation: I personally reviewed and interpreted this ECG as follows: Indication: + other (headache, confusion) Rate (beats per minute): 62 Rhythm: + normal sinus ECG ST segments: no ST elevation ECG Findings: + LVH and + Other (QT-c 456.); no PVCs Blood Pressure Blood Pressure Findings: Elevated blood pressure Blood Pressure Disposition: further management by hospitalist Head Trauma GCS Score: 15 MDM Narrative There is no leukocytosis or concerning anemia. The patient had a normal platelet count. No significant electrolyte abnormality or kidney failure. No concerning liver enzyme elevation. The patient appeared to be in a euthyroid state. EKG showed a sinus rhythm with some LVH, no acute ischemia. Cardiac enzyme testing x1 is not consistent with acute cardiac injury. Chest film did not show pneumonia or CHF. Brain CT showed no acute bleed or mass-effect. Some older potential small stroke lesions were seen. On my exam, the patient had no focal neurologic findings, no facial droop or speech slur. Her stroke scale sc ore was 0. Her symptoms of confusion from earlier today had completely resolved. The patient was given IV hydralazine because of the elevated blood pressure. She was given oral Tylenol for her headache. She received oral aspirin for stroke prevention. She received IV Toradol to help with her headache. She was given IV saline. The patient presents with a headache for a few days, she just does not feel well. She had high blood pressure at home and for a short time today seem confused. Given her history, given the findings on CT, given the high blood pressure, I do think a hospital stay is warranted. A stroke work-up is in order. She is not a candidate for TPA as her symptoms have completely resolved. I did speak to the patient, I talked with case management. The on-call hospital ist was consulted. Impression & Plan Confusion, Headache, Hypertension, Abnormal brain CT Discharge Plan Visit Data Chief Complaint: Headache Stated Complaint: HEADACHE, BP REALLY HIGH, NOT COMPREHENDING THINGS ED Provider: Eldon Saini Discharge Problem: Confusion, Headache, Hypertension, Abnormal brain CT Patient Disposition: Being Evaluated by Hospitalist Forms Stand Alone Forms: My [facility] Prescriptions Prescriptions: No Action meclizine 12.5 mg Tablet 12.5 mg PO TID PRN (Reason: Dizziness) RF: 0 buspirone 10 mg Tablet 10 mg PO BID RF: 0 fluticasone propionate [Flonase Allergy Relief] 50 mcg/actuation [place],Suspension 2 spray INTRANASAL QAM RF: 0 escitalopram oxalate [Lexapro] 20 mg Tablet 20 mg PO QAM RF: 0 pantoprazole 40 mg tablet,delayed release (DR/EC) 40 mg PO QAM RF: 0 bupropion HCl 150 mg Tablet Sustained-Release 12 Hr 150 mg PO BID RF: 0 atorvastatin [Lipitor] 10 mg Tablet 10 mg PO QAM RF: 0 levothyroxine 75 mcg Tablet 75 mcg PO QAM RF: 0 vitamin B complex Tablet 1 tab PO HS RF: 0 ranitidine HCl 150 mg Capsule 150 mg PO BID RF: 0 albuterol sulfate 90 mcg/actuation Hfa Aerosol Inhaler 2 puff INHALATION QID PRN (Reason: Shortness Of Breath) RF: 0 cholecalciferol (vitamin D3) [Vitamin D3] 2,000 unit Capsule 2,000 unit PO QAM RF: 0 Referrals Referrals: Cecilia Quarles DO [Primary Care Provider] - Discharge Problem: Headache Qualifiers: Headache type: unspecified Headache chronicity pattern: unspecified pattern Intractability: not intractable Qualified Code(s): R51 - Headache Hypertension Qualifiers: Hypertension type: unspecified Qualified Code(s): I10 - Essential (primary) hypertension The scribe's documentation has been prepared under my direction and personally reviewed by me in its entirety. I confirm that the note above accurately reflects all work, treatment, procedures, and medical decision making performed by me.
--- NOTE | 2019-03-04 17:33 | XRay Report ---
XR chest 1V portable HISTORY: 68 years-old Female weakness acute weakness COMPARISON: Chest radiograph 06/01/2018 TECHNIQUE: Portable AP view of the chest FINDINGS: Cardiac mediastinal and hilar silhouettes are unchanged. No pneumothorax, large pleural effusion or o vert pulmonary edema. Minimal left basilar opacities suggest probable atelectasis. Mild degenerative changes of the shoulders and spine. IMPRESSION: No acute process. ACT 112: Negative or not required by law. The above report was generated using voice recognition software. It may contain grammatical, syntax o r spelling errors. Electronically signed by: Wagner Molina M.D. 03/04/2019 5:31 PM
[2019-03-04 17:34] LABS: Basophils # (auto) 0.01 K/uL (0-0.2); Basophils % (auto) 0.2 %; Eosinophils # (auto) 0.07 K/uL (0-0.5); Eosinophils % (auto) 1.3 %; Hematocrit (blood only) 37.7 % (37-47); Hemoglobin 12.9 g/dL (12.0-16.0); Lymphocytes # (auto) 2.64 K/uL (1.2-3.4); Lymphocytes % (auto) 47.4 %; Mean Corpuscular Hemoglobin 31.9 pg (25-34); Mean Corpuscular Hgb Conc 34.2 g/dL (32-36); Mean Corpuscular Volume 93.1 fL (80-100); Monocytes # (auto) 0.34 K/uL (0.11-0.59); Monocytes % (auto) 6.1 %; Neutrophils # (auto) 2.51 K/uL (1.4-6.5); Platelet Count 231 K/uL (130-400); RDW Coefficient of Variation 12.8 % (11.5-14.5); RDW Standard Deviation 43.5 fL (36.4-46.3); Red Blood Count 4.05 M/uL (4.2-5.4); White Blood Count 5.57 K/uL (4.8-10.8)
[2019-03-04 17:52] LABS: Alanine Aminotransferase 32 U/L (12-78); Aspartate Aminotransferase 20 U/L (15-37); Blood Urea Nitrogen 14 mg/dl (7-18); Calcium 9.4 mg/dl (8.5-10.1); Carbon Dioxide 30 mmol/L (21-32); Chloride 99 mmol/L (98-107); Creatinine Clr Calc Pharmacy 74.9 ml/min; Est GFR (Non-African American) 76.8; Glucose 86 mg/dl (70-99); Magnesium 1.9 mg/dl (1.8-2.4); Potassium 3.9 mmol/L (3.5-5.1); Sodium 134 mmol/L (136-145)
[2019-03-04 18:03] LABS: Alkaline Phosphatase 82 U/L (45-117); Bilirubin,Total 0.3 mg/dl (0.2-1); Troponin I < 0.015 ng/ml (0-0.045)
--- NOTE | 2019-03-04 18:07 | CT Scan Report ---
CT head/brain wo con CLINICAL HISTORY: 68 years-old Female with headache, confusion. Acute headache with confusion TECHNIQUE: Multiple axial CT images of the head were obtained without contrast. A dose lowering tech nique was utilized adhering to the principles of ALARA. CT DOSE: 638.56 mGycm COMPARISON: Head CT 04/21/2018 FINDINGS: No acute intracranial hemorrhage, midline shift, intracranial mass, hydrocephalus, territorial ischem ia or abnormal extra-axial collection. Age-related involutional changes. Patchy white matter hypodens ities suggest chronic microvascular ischemic disease. Ill-defined 11 mm hypodensity within the perive ntricular white matter/head of the right caudate nucleus on image 12 series 12 appears new from prior . Remote subcentimeter acute infarctions of the bilateral basal ganglia. Cerebral vascular calcificat ions are noted. The calvarium is intact. The paranasal sinuses, mastoid air cells, and middle ear cavities are clear . IMPRESSION: 1. No acute intracranial hemorrhage, midline shift or acute territorial infarct. 2. Suggestion of mild chronic vascular ischemic disease. There is a new 11 mm ill-defined hypodense f ocus involving the periventricular white matter of the right frontal lobe adjacent to the right cauda te nucleus suggestive of age-indeterminate lacunar infarction versus progressive chronic microvascula r ischemic disease, new from 04/21/2018. Correlate with clinical presentation. ACT 112: Negative or not required by law. The above report was generated using voice recognition software. It may contain grammatical, syntax o r spelling errors. Electronically signed by: Wagner Molina M.D. 03/04/2019 6:05 PM
[2019-03-04] MEDS ORDERED: ASPIRIN CHEW 324 MG PO STA (18:17)
[2019-03-04 19:20] LABS: D Dimer 340 ug/L FEU (0-500)
--- NOTE | 2019-03-04 20:01 | History & Physical Report ---
Date of Service March 04, 2019 Assessment & Plan (1) Confusion: Episode of confusion today while shopping associated with headache. No focal neurologic symptoms. Head CT demonstrates small vessel ischemic changes and a lesion in the right caudate that is new since April 2018. Episode today may have been a TIA or secondary to migraine. Start aspirin 81 mg daily. Check lipid profile. Check MRI, carotid duplex, echocardiogram. Monitor for arrhythmias. PT/OT/REPORTING COORDINATOR evaluations. Consult Neurology. (2) Chest pain, precordial: Patient experienced some mild substernal chest discomfort with deep inspiration after her episode of confusion. No acute EKG findings. Serum troponin less than 0.015. Pulmonary embolism very unlikely with normal d-dimer. No further evaluation necessary unless symptoms recur. (3) Hypertension: History of hypertension, treated with carvedilol. BP elevated upon presentation to ED. Continue carvedilol. Allow permissive hypertension until acute ischemic event ruled out. Follow and titrate therapy. (4) GERD (gastroesophageal reflux disease): Continue PPI. (5) Hypothyroidism: TSH normal. Continue levothyroxine. (6) Depression: Continue escitalopram. (7) DVT prophylaxis: SQ enoxaparin. Ambulate. (8) Discharge planning issues: Anticipated discharge to home. Family Medicine follow-up with Dr. Quarles. History of Present Illness Chief Complaint: confusion Primary Care Provider: Cecilia Quarles DO 68-year-old female followed by Dr. Cecilia Quarles for Family Medicine. History of hypertension, dyslipidemia, and other problems noted below. This afternoon she was shopping with her when she had a episode of confusion. reports that she did not seem to understand what he was telling her. Patient has vague recollection of the episode. No focal neurologic symptoms. She was experiencing a headache that was diffuse and fairly severe. History of migraine headaches. Had a headache about 3 days prior to admission associated with visual changes. Experienced vertigo 2 days ago which is not unusual for her. After the episode this afternoon, she experienced some mild shortness of breath and some mild chest discomfort with deep inspiration. Brought to the ED. Blood pressure upon arrival was 180/104. Patient was feeling significantly better by the time of my assessment and her headache had essentially resolved. Allergies Allergy/AdvReac Type Severity Reaction Status Date / Time Sulfa (Sulfonamide Allergy Unknown Swelling Verified 03/04/19 17:36 Antibiotics) codeine AdvReac Intermediate CONFUSION Verified 03/04/19 17:36 Home Medications Home Medications Medication Instructions Recorded Confirmed Type albuterol sulfate 2 puff INHALATION QID PRN 11/25/17 03/04/19 History atorvastatin [Lipitor] 10 mg PO QAM 11/25/17 03/04/19 History bupropion HCl 150 mg PO BID 11/25/17 03/04/19 History cholecalciferol (vitamin D3) 2,000 unit PO QAM 11/25/17 03/04/19 History [Vitamin D3] levothyroxine 75 mcg PO QAM 11/25/17 03/04/19 History ranitidine HCl 150 mg PO BID 11/25/17 03/04/19 History vitamin B complex 1 tab PO HS 11/25/17 03/04/19 History buspirone 10 mg PO BID 04/20/18 03/04/19 History escitalopram oxalate [Lexapro] 20 mg PO QAM 04/20/18 03/04/19 History fluticasone propionate [Flonase 2 spray INTRANASAL QAM 04/20/18 03/04/19 History Allergy Relief] meclizine 12.5 mg PO TID PRN 04/20/18 03/04/19 History pantoprazole 40 mg PO QAM 03/04/19 03/04/19 History Past Med/Surg History Medical History (Updated 03/05/19 @ 02:22 by Bari Stinson MD) Depression GERD (gastroesophageal reflux disease) Hyperlipidemia Hypertension Hypothyroidism Surgical History Status post lumbar surgery Family History (Updated 03/05/19 @ 02:24 by Bari Stinson MD) Mother Hypertension Stroke Alzheimer disease Father Lung cancer Brother Coronary heart disease Social History Preferred Language: Irish Communication Ability: Effective Visual Impairment: No Limitations Hearing Ability: Normal [employer] Sales [employer] Required: No Beliefs That Will Affect Care: None marital status: Current Living Situation: Spouse Current Living Situation Comment: Lives with spouse current occupational status: employed 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 Feels Safe at Home: Yes Safety Concerns: Feels Safe At This Time Smoking Status: Never smoker Hx Alcohol Use: Yes Alcohol type: beer and wine Hx Substance Use: No Review of Systems Constitutional: + weight loss (intentional); no fever Eyes: no diplopia and no worsening vision Ear, Nose, Mouth, Throat: + nasal congestion; no sore throat Respiratory: + dyspnea (mild dyspnea this afternoon); no cough Cardiovascular: + chest pain (mild chest pressure this afternoon, worse with deep inspiration); no palpitations and no edema Gastrointestinal: + constipation; no nausea, no vomiting, no diarrhea/loose stools, no blood in stools and no melena Genitourinary: + dysuria (mild); no hematuria Musculoskeletal: + joint pain; no myalgia Integumentary: no rash and no new lesions Neurologic: as per Subjective / HPI Endocrine: no polydipsia and no polyuria Hematologic / Lymphatic: no easy bleeding, no easy bruising and no lymphadenopathy Physical Exam Constitutional: WD/WN, vitals as above no acute distress Eyes: PERRL, conjunctivae normal, anicteric sclerae ENMT: external ear and nose normal, oropharynx normal Neck: trachea midline, no thyromegaly Respiratory: normal respiratory effort, lungs clear to auscultation Cardiovascular: Rate/Rhythm: regular rate Heart Sounds: + gallop (S4); no murmur and no cardiac rub Vessels: no JVD Extremities: normal capillary refill; no calf tenderness and no edema occasional ectopy Gastrointestinal (Abdomen): normal bowel sounds, soft, nontender, no hepatosplenomegaly Musculoskeletal: Head/Neck/Chest: neck supple Extremities: strength 5/5 throughout; no cyanosis and no clubbing Skin: no rashes, warm and dry Neurologic: PERRL, EOMI no facial palsy no dysarthria or aphasia patellar DTR's 2/2 bilat plantar reflexes downgoing Psychiatric: Orientation: alert and oriented x 3 Affect: euthymic affect Lymphatic: no cervical lymphadenopathy Results & Data Vital Signs (Past 12 Hours) Vital Signs Temp Pulse Pulse Resp BP BP Pulse Ox 03/04/19 19:33 63 14 170/80 H 95 03/04/19 19:26 63 14 170/80 H 95 03/04/19 17:31 61 18 172/97 H 94 03/04/19 16:47 36.7 C 61 18 180/104 H 98 Laboratory Results Laboratory Results - last 24 hr 03/04/19 03/04/19 03/04/19 17:24 17:24 17:25 WBC 5.57 RBC 4.05 L Hgb 12.9 Hct 37.7 MCV 93.1 MCH 31.9 MCHC 34.2 RDW Std Deviation 43.5 RDW Coeff of Clarita 12.8 Plt Count 231 MPV 9.0 Immature Gran % (Auto) 0.0 Neut % (Auto) 45.0 Lymph % (Auto) 47.4 Lyon % (Auto) 6.1 Eos % (Auto) 1.3 Baso % (Auto) 0.2 Immature Gran # (Auto) 0.00 Neut # (Auto) 2.51 Lymph # (Auto) 2.64 Lyon # (Auto) 0.34 Eos # (Auto) 0.07 Baso # (Auto) 0.01 D-Dimer 340 Sodium 134 L Potassium 3.9 Chloride 99 Carbon Dioxide 30 Anion Gap 5.0 BUN 14 Creatinine 0.80 Est Cr Clr Drug Dosing 74.9 Est GFR ( Amer) 89.0 Est GFR (Non-Af Amer) 76.8 BUN/Creatinine Ratio 18.0 Glucose 86 Calcium 9.4 Magnesium 1.9 Total Bilirubin 0.3 AST 20 ALT 32 Alkaline Phosphatase 82 Troponin I < 0.015 Total Protein 8.0 Albumin 4.0 Globulin 4.0 Albumin/Globulin Ratio 1.0 TSH 3.230 Urine Color Urine Appearance Urine pH Ur Specific Girard Urine Protein Urine Glucose (UA) Urine Ketones Urine Blood Urine Nitrite Urine Bilirubin Urine Urobilinogen Ur Leukocyte Esterase 03/04/19 19:30 WBC RBC Hgb Hct MCV MCH MCHC RDW Std Deviation RDW Coeff of Clarita Plt Count MPV Immature Gran % (Auto) Neut % (Auto) Lymph % (Auto) Lyon % (Auto) Eos % (Auto) Baso % (Auto) Immature Gran # (Auto) Neut # (Auto) Lymph # (Auto) Lyon # (Auto) Eos # (Auto) Baso # (Auto) D-Dimer Sodium Potassium Chloride Carbon Dioxide Anion Gap BUN Creatinine Est Cr Clr Drug Dosing Est GFR ( Amer) Est GFR (Non-Af Amer) BUN/Creatinine Ratio Glucose Calcium Magnesium Total Bilirubin AST ALT Alkaline Phosphatase Troponin I Total Protein Albumin Globulin Albumin/Globulin Ratio TSH Urine Color Yellow Urine Appearance Clear Urine pH 8.0 H Ur Specific Girard 1.007 Urine Protein Negative Urine Glucose (UA) Negative Urine Ketones Negative Urine Blood Negative Urine Nitrite Negative Urine Bilirubin Negative Urine Urobilinogen Negative Ur Leukocyte Esterase Negative Diagnostic Findings Chest x-ray did not show any significant abnormalities. CT of head showed patchy white matter hypodensities consistent with microvascular ischemic disease, ill-defined 11 mm hypodensity within the head of the right caudate nucleus, age-related involutional changes. The lesion in the right caudate nucleus was new compared to CT performed on 04/21/2018. ECG Additional Comments: EKG performed at 1720 reviewed and demonstrated normal sinus rhythm at 60/minute, no acute changes. Code Status & VTE Plan Code Status Advanced directives discussed with patient and her . She has a living will. She would like resuscitation attempted in the event of a cardiopulmonary arrest if there is a reasonable chance of a meaningful recovery. However, she does not want resuscitation or other extraordinary measures initiated or continued if prognosis is very poor. VTE Prophylaxis Plan VTE Prophylaxis will be ordered: Yes (1) Hypertension Hypertension type: unspecified Qualified Code(s): I10 - Essential (primary) hypertension
[2019-03-04 20:12] LABS: Appearance Urine Clear (Clear); Bilirubin Urine Negative (Negative); Blood Urine Negative (Negative); Color Urine Yellow; Glucose Urine UA Negative (Negative); Ketones Urine Negative (Negative); Leukocyte Esterase Urine Negative (Negative); Nitrite Urine Negative (Negative); Protein Urine Negative (Negative); Specific Gravity Urine 1.007 (1.000-1.030); Urobilinogen Urine Negative (Negative)
[2019-03-04] MEDS ORDERED: MECLIZINE 12.5 MG TAB PO PRN (20:19)
[2019-03-04] MEDS ORDERED: PHARMACIST DISCHARGE MED REC CONSULT PRN (20:19)
[2019-03-04] MEDS ORDERED: ACETAMINOPHEN 325 MG TAB PO PRN (20:19)
[2019-03-04] MEDS ORDERED: ALBUTEROL HFA 8 GM INHALER INH PRN (20:19)
[2019-03-04] MEDS: BuPROPion SR 150 MG TABCR PO SCH (21:08)
[2019-03-05] MEDS ORDERED: COUGH DROP (SUGAR FREE) LOZ 24 LOZ/1 BOX BUCCAL ONE (06:06)
--- NOTE | 2019-03-05 06:24 | Ultrasound Report ---
US carotid doppler BI HISTORY: Mental status change stroke-like symptoms COMPARISON: None. TECHNIQUE: Real-time, grayscale, and color Doppler sonography of the carotid arteries was performed. Imaging reviewed in the transverse and longitudinal planes. All measurements were calculated based on NASCET criteria. FINDINGS: Antegrade flow is seen in the bilateral vertebral arteries. The brachial pressures are hemodynamically similar. Mild plaque formation bilaterally The peak systolic velocity within the right ICA is 90. The right systolic ratio is 1.2. The peak systolic velocity within the left ICA is 90. The left systolic ratio is 1.1. IMPRESSION: No hemodynamically significant stenosis seen within the carotid arteries. Mild plaque formation bilat erally ACT 112: Negative or not required by law. The above report was generated using voice recognition software. It may contain grammatical, syntax or spelling errors. Electronically signed by: Quentin Keith M.D. 03/05/2019 6:23 AM
--- NOTE | 2019-03-05 07:12 | Magnetic Resonance Report ---
Brain MRI WITHOUT CONTRAST HISTORY: stroke-like symptoms TECHNIQUE: Multiplanar multisequence MRI of the brain was performed without the use of contrast. COMPARISON STUDY: Head CT 03/04/2019. FINDINGS: There is a 12 mm focus of restricted diffusion within the periventricular white matter of t he right frontal lobe best seen on image 14 of 44. This is consistent with a small acute infarct. The midline structures are intact. A few scattered foci of T2 hyperintensity within the periventricular and subcortical white matter of the supratentorial brain. These are nonspecific but favor mild microv ascular ischemic change. The paranasal sinuses and mastoid air cells are clear. The major vascular fl ow voids at the skull base are well-maintained. The ventricles and sulci are within normal limits. Th ere is no mass, hematoma, midline shift. IMPRESSION: An acute lacunar infarct within the periventricular white matter of the right frontal lobe. This find ing was called/faxed to the referring physician following dictation. ACT 112: Negative or not required by law. Electronically signed by: Dougie Ledezma M.D. 03/05/2019 7:10 AM
[2019-03-05 08:25] LABS: Partial Thromboplastin Ratio 1.1; Partial Thromboplastin Time 29.6 Seconds (21.0-31.0); Prothrombin Time 10.4 Seconds (9.0-12.0)
[2019-03-05 08:34] LABS: Chol HDL Ratio 3; Cholesterol 167 mg/dl (0-200); HDL Cholesterol 49 mg/dl; LDL Cholesterol Calculated 83 mg/dl; Triglycerides 176 mg/dl (0-150); VLDL Cholesterol 35 mg/dl
[2019-03-05] MEDS: ASPIRIN 81 MG ECTAB PO SCH (08:41)
[2019-03-05] MEDS: FLUTICASONE PROPIONATE NA SPR 16 GM BTL SCH (08:42)
[2019-03-05] MEDS: ESCITALOPRAM OXALATE 20 MG TAB PO SCH (08:42)
[2019-03-05] MEDS: CHOLECALCIFEROL 1,000 UNITS 25 MCG TAB PO SCH (08:42)
[2019-03-05] MEDS: PANTOprazole 40 MG TAB PO SCH (08:42)
[2019-03-05] MEDS: carvediloL 6.25 MG TAB PO SCH ×2 (08:43→20:25)
[2019-03-05] MEDS: BuPROPion SR 150 MG TABCR PO SCH ×2 (08:43→20:24)
[2019-03-05] MEDS: ENOXAPARIN INJ 40 MG/0.4 ML SYR SQ SCH (08:44)
[2019-03-05 08:51] LABS: Estimated Average Glucose 114 mg/dl; Hemoglobin A1C 5.6 % (4.5-5.6)
[2019-03-05] MEDS ORDERED: ATORVASTATIN 10 MG TAB PO SCH (09:00)
--- NOTE | 2019-03-05 09:48 | Hospitalist Progress Note ---
Date of Service March 05, 2019 Assessment & Plan (1) CVA (cerebral vascular accident): (2) Confusion: Confusion resolved. Head CT demonstrates small vessel ischemic changes and a lesion in the right caudate that is new since April 2018. MRI brain showed an acute lacunar infarct and periventricular white matter of the right frontal lobe Carotid duplex was negative for any hemodynamically significant stenosis 2D echo showed borderline concentric LVH, EF 60 to 65%, normal RV systolic function normal and atria. EKG showed normal sinus rhythm Got aspirin 324 mg yesterday. Continue aspirin 81 mg daily. Decreased atorvastatin from 10 mg home dose to 40 mg daily. PT/OT/speech therapy eval noted. Will appreciate neurology recommendations. (3) Chest pain, precordial: Patient experienced some mild substernal chest discomfort with deep insp iration after her episode of confusion. EKG showed normal sinus rhythm Serum troponin less than 0.015. Low likelihood of PE Echo noted as asked above (4) Hypertension: Takes carvedilol 6.25 mg twice daily, losartan 50 mg daily BP elevated upon presentation to ED. currently in the 140s over 80s Continue carvedilol. Resume home losartan Monitor blood pressure (5) GERD (gastroesophageal reflux disease): Continue PPI. (6) Hypothyroidism: TSH normal. Continue levothyroxine. (7) Depression: Stable Continue escitalopram. (8) DVT prophylaxis: SQ enoxaparin. Ambulate. (9) Discharge planning issues: Plan to discharge home once inpatient evaluation is complete Will follow up with PCP and neurology Subjective Patient seen and examined. Reports that confusion has resolved. Denies any headache, blurry vision, focal weakness no sensory abnormalities. Has not had any more shortness of breath or chest discomfort since after the episode yesterday. Denies any palpitation, dizziness, orthopnea or PND. Review of Systems Review of Systems: All systems reviewed and unremarkable except for mentioned above. Physical Exam Constitutional: WD/WN, vitals as above Eyes: PERRL, conjunctivae normal, anicteric sclerae PERRL and EOM intact bilaterally ENMT: external ear and nose normal, oropharynx normal Neck: normal visual inspection and trachea midline Respiratory: normal respiratory effort, lungs clear to auscultation no respiratory distress Cardiovascular: Rate/Rhythm: regular rate and regular rhythm Heart Sounds: normal S1 and normal S2 Extremities: no pedal edema Chest (Breasts): Chest: normal inspection of chest Gastrointestinal (Abdomen): normal bowel sounds, soft, nontender, no hepatosplenomegaly Inspection/Auscultation: abdomen normal to inspection; abdomen not distended Musculoskeletal: no cyanosis or clubbing, extremities motor strength 5/5 Head/Neck/Chest: + head abnormal to inspection, normocephalic, head atraumatic and neck supple Extremities: strength 5/5 throughout Gait: normal gait Neurologic: PERRL, EOMI, accommodation nl, no face palsy, no dysarthria normal touch/pain/proprioception and moves all extremities; no focal motor deficits Speech / Cognition: normal speech Psychiatric: A+Ox3, euthymic affect Speech: normal rate/rhythm/volume of speech Genitourinary: no CVA tenderness Results & Data Vital Signs (Past 12 Hours) Vital Signs Temp Pulse Pulse Resp BP BP Pulse Ox 03/05/19 07:20 36.9 C 64 20 159/89 H 96 03/05/19 03:53 36.7 C 63 18 139/79 94 03/05/19 00:38 67 03/04/19 23:41 36.6 C 67 18 149/79 H 95 Laboratory Results Abnormal lab results 03/04/19 03/04/19 03/04/19 Range/Units 17:24 17:24 19:30 RBC 4.05 L (4.2-5.4) M/uL Sodium 134 L (136-145) mmol/L Triglycerides (0-150) mg/dl Urine pH 8.0 H (4.5-7.5) 03/05/19 Range/Units 07:27 RBC (4.2-5.4) M/uL Sodium (136-145) mmol/L Triglycerides 176 H (0-150) mg/dl Urine pH (4.5-7.5) (1) Hypertension Hypertension type: unspecified Qualified Code(s): I10 - Essential (primary) hypertension
[2019-03-05] MEDS: LEVOTHYROXINE SODIUM 75 MCG TABLET PO SCH (11:22)
--- NOTE | 2019-03-05 15:14 | Neurology Consultation ---
Date of Consultation March 05, 2019 Assessment & Plan (1) CVA (cerebral vascular accident): 1. MRI stroke - periventricular lacunar stroke right frontal lobe 2. TTE- no ASD 3. optimize HTN, HLD LDL<70 4. carotid doppler no significant stenosis- will order CTA head and neck 5. PT/OT speech for discharge needs 6. decrease caffeine use 7. admission in Apr 2018 resulted in a stress echo which was normal will follow up in neurology 4-6 weeks after discharge Candace Unger PAC schedule (2) Headache: 1. tylenol prn Supervising Physician Co-Signing Physician Notes I have seen and discussed above patient with Dr Bari Syed, neurology I have interviewed examined and reviewed the history, and imaging studies and discussed this case with Candace Unger PA-C. This woman with longstanding hypertension, prior admission for hypertensive urgency in April who presents with a several day headache history and then a brief episode of confusion and slowness of movements which has now largely resolved. Imaging studies have shown evidence for a deep small right hemispheric frontal infarction that on exam is really not associated with any significant abnormalities other than perhaps some minor to marginal left facial asymmetry and could be clinically silent but might have explained to transient visuospatial issues she seemed to have yesterday while at [facility] trying to develop some photographic prints She should be on some form of antiplatelet therapy and is aspirin april so I would start there and we need to get CT angiographic studies of the cervical v essels and intracranial vessels just to be sure there is no localized small vessel disease, dissection, or other pathology that might have produced this deep infarction. Echocardiogram thus far shows no evidence for emboli and has no history to suggest palpitations or paroxysmal atrial fibrillation but we may need to consider an outpatient ZIO Patch in the future On the basis of infarct localization this would appear to be a primary small vessel event but this does not exclude an acute embolic event and if a source of emboli is found anticoagulation with Coumadin and/or novel anticoagulant would have to be considered in the future We will check back tomorrow review the imaging studies and proceed from there Bari Syed MD History of Present Illness Reason for Consultation: stroke like symptoms Requesting Physician: Myriam Joseph MD Attending Physician: Myriam Joseph MD History of Present Illness Linda is a 68 year old female with a PMH hypothyroid, depression GERD, headache, HTN who presented with a 2 weeks history of headaches located behind her face. She states that these headaches started after she had a migraine about a week ago. She explains that she took Excedrin that helped relieve her migraine. she still has a headache but currently it is just a dull ache. She has also had a dull aching pain in her right arm for the past week. She became confused Tuesday in [facility] and was unable to comprehend what her wanted her to do. She states that once she got home from [facility] she took her blood pressure which was elevated. She notes that she has experienced hypertension before as her blood pressure medication had to be switched in December 2018. She states once she was at the hospital the confusion resolved.There are heart issues in her family but she was never told she had any, and did not have rheumatic fever as a child. She does not take aspirin daily. denies CP, SOB, abdominal pain, one sided weakness,numbness tingling, N, V, vision changes, bowel or bladder issues, dizziness, +current mild headache. Allergies Allergy/AdvReac Type Severity Reaction Status Date / Time Sulfa (Sulfonamide Allergy Unknown Swelling Verified 03/04/19 17:36 Antibiotics) codeine AdvReac Intermediate CONFUSION Verified 03/04/19 17:36 Home Medications Home Medications Medication Instructions Recorded Confirmed Type albuterol sulfate 2 puff INHALATION QID PRN 11/25/17 03/04/19 History atorvastatin [Lipitor] 10 mg PO QAM 11/25/17 03/04/19 History bupropion HCl 150 mg PO BID 11/25/17 03/04/19 History cholecalciferol (vitamin D3) 2,000 unit PO QAM 11/25/17 03/04/19 History [Vitamin D3] levothyroxine 75 mcg PO QAM 11/25/17 03/04/19 History ranitidine HCl 150 mg PO BID 11/25/17 03/04/19 History vitamin B complex 1 tab PO HS 11/25/17 03/04/19 History buspirone 10 mg PO BID 04/20/18 03/04/19 History escitalopram oxalate [Lexapro] 20 mg PO QAM 04/20/18 03/04/19 History fluticasone propionate [Flonase 2 spray INTRANASAL QAM 04/20/18 03/04/19 History Allergy Relief] meclizine 12.5 mg PO TID PRN 04/20/18 03/04/19 History pantoprazole 40 mg PO QAM 03/04/19 03/04/19 History carvedilol 6.25 mg PO BID 03/05/19 03/05/19 History losartan 50 mg PO DAILY 03/05/19 03/05/19 History Patient History Medical History (Updated 03/05/19 @ 15:44 by Myriam Joseph MD) Depression GERD (gastroesophageal reflux disease) Hyperlipidemia Hypertension Hypothyroidism Surgical History Status post lumbar surgery Family History (Updated 03/05/19 @ 02:24 by Bari Stinson MD) Mother Hypertension Stroke Alzheimer disease Father Lung cancer Brother Coronary heart disease Social History Preferred Language: Tajik Communication Ability: Effective Visual Impairment: No Limitations Hearing Ability: Normal Landfill Gas Technician Required: No Beliefs That Will Affect Care: None marital status: Current Living Situation: Spouse Current Living Situation Comment: Lives with spouse current occupational status: employed 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 Feels Safe at Home: Yes Safety Concerns: Feels Safe At This Time Smoking Status: Never smoker Hx Alcohol Use: Yes Alcohol type: beer and wine Hx Substance Use: No Physical Exam Physical Exam: Physical Exam: Constitutional: appearance over nourished, healthy Ears, Nose, Mouth and Throat: mucous membranes moist, no injection and skin normal, eyes normal Cardiovascular: normal S-1 and S-2 and regular rate and rhythm Respiratory: clear to auscultation (CTA) and no rales, rhonchi or wheeze Musculoskeletal: no peripheral edema and good distal pulses Skin: no stigmata of neurocutaneous disease noted and normal and intact Eyes: extraocular muscles intact (EOMI) and pupils equal, round and reactive to light (PERRL) NEUROLOGIC EXAMINATION: Mental status: Alert and interactive Oriented to full date and location Oriented to person Speech fluent with no evidence of aphasia Cranial Nerves smile eye brow raise symmetric Reflexes: Deep tendon reflexes were symmetrical and graded 2/5. Sensory: no sensory deficits, to light cool touch Coordination: finger to nose, heel to augustin, no difficulty Gait/Stance: Posture normal. sitting up in bed Motor: Negative for pronator drift of out stretched arms with eyes closed. Strength: hand convention manager biceps triceps deltoids bilaterally 5/5 hip flex patellar planter flex ext 5/5 Results & Data Vital Signs (Past 12 Hours) Vital Signs Temp Pulse Resp BP BP Pulse Ox 03/05/19 11:39 37.4 C 72 20 147/79 H 93 03/05/19 07:20 36.9 C 64 20 159/89 H 96 03/05/19 03:53 36.7 C 63 18 139/79 94 Laboratory Results Abnormal lab results 03/04/19 03/04/19 03/04/19 Range/Units 17:24 17:24 19:30 RBC 4.05 L (4.2-5.4) M/uL Sodium 134 L (136-145) mmol/L Triglycerides (0-150) mg/dl Urine pH 8.0 H (4.5-7.5) 03/05/19 Range/Units 07:27 RBC (4.2-5.4) M/uL Sodium (136-145) mmol/L Triglycerides 176 H (0-150) mg/dl Urine pH (4.5-7.5) Diagnostic Findings carotid doppler- No hemodynamically significant stenosis seen within the carotid arteries. Mild plaque formation bilaterally MRI brain-An acute lacunar infarct within the periventricular white matter of the right frontal lobe. TTE- EF 60-65%, no ASD (1) Headache Headache chronicity pattern: unspecified pattern Headache type: unspecified Intractability: not intractable Qualified Code(s): R51 - Headache
[2019-03-05] MEDS ORDERED: OPTIRAY 320 125ml IV PRN (16:40)
--- NOTE | 2019-03-05 17:35 | CT Scan Report ---
CT angio neck with con, CT angio head w con CLINICAL HISTORY: 68 years-old Female with evaluate vessels acute stroke. Acute lacunar infarction of the periventricular right frontal lobe COMPARISON STUDY: MRI brain of same day, CT head 03/04/2019 TECHNIQUE: Following the IV administration of 115 mL of Optiray 320, CT angiogram of the head and nec k was performed from the aortic arch to the skull apex. Images are reviewed in the axial, sagittal, a nd coronal planes. 3-D MIPS images are created and assessed. IV contrast was administered without com plication. All measurements were calculated based on NASCET criteria. A dose lowering technique was utilized adhering to the principles of ALARA. CT DOSE: 540.20 mGy.cm FINDINGS: The imaged opacified pulmonary arterial tree is unremarkable. Moderate mixed plaque of the thoracic a ortic arch. Patency of the imaged bilateral subclavian arteries. The proximal and mid portions of the common carotid arteries appear normal bilaterally. Moderate right and severe left mixed plaque forma tion of the carotid bulbs. There is no significant stenosis on the right. There is approximately 30% luminal narrowing of the left carotid bulb, proximal left ICA. There is a 1 mm atheromatous plaque fr agment of the left carotid bulb which partially extends into the proximal left ICA lumen on image 225 of series 2. Mild calcified plaque of the cavernous and supraclinoid segments without high-grade coral nosis. Mild luminal narrowing of less than 50% is noted within multiple areas throughout the bilatera l middle cerebral arteries. Hypoplastic right A1 segment with the bilateral A2 segments arising from the left A1 segment. 2 mm saccular aneurysm arises from the A2 bifurcation of the distal left A1 segm ent on image 370 series 2. Dominant left vertebral artery. The majority of the right vertebral artery terminates into the right PICA. Patent bilateral vertebral arteries. Basilar and posterior cerebral arteries are patent. origin of the right posterior cerebral artery. Multiple areas of mild luminal narrowing noted through out the left posterior cerebral artery. Cerebral venous sinuses are patent. There is no abnormal enha ncement. Acute lacunar infarction of the coronal radiata right frontal lobe redemonstrated. Lung apices are clear. 8 mm cyst of the right thyroid lobe. Degenerative changes of the spine. IMPRESSION: 1. 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 There is an eccentric 1 mm portion of the atheromatous plaque along the left carotid bulb which is suspicious for an unstable plaque fragment. 2. 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 3. No dissection, high-grade stenosis or proximal branch occlusion identified. 4. Acute lacunar infarction of the liao radiata right frontal lobe redemonstrated. ACT 112: Negative or not required by law. The above report was generated using voice recognition software. It may contain grammatical, syntax o r spelling errors. Electronically signed by: Wagner Molina M.D. 03/05/2019 5:33 PM
[2019-03-06] MEDS: CHOLECALCIFEROL 1,000 UNITS 25 MCG TAB PO SCH (08:03)
[2019-03-06] MEDS: LEVOTHYROXINE SODIUM 75 MCG TABLET PO SCH (08:03)
[2019-03-06] MEDS: ESCITALOPRAM OXALATE 20 MG TAB PO SCH (08:03)
[2019-03-06] MEDS: ASPIRIN 81 MG ECTAB PO SCH (08:04)
[2019-03-06] MEDS: BuPROPion SR 150 MG TABCR PO SCH (08:04)
[2019-03-06] MEDS: PANTOprazole 40 MG TAB PO SCH (08:05)
[2019-03-06] MEDS: FLUTICASONE PROPIONATE NA SPR 16 GM BTL SCH (08:05)
[2019-03-06] MEDS: carvediloL 6.25 MG TAB PO SCH (08:08)
[2019-03-06] MEDS: ENOXAPARIN INJ 40 MG/0.4 ML SYR SQ SCH (08:08)
[2019-03-06] MEDS ORDERED: ATORVASTATIN 40 MG TAB PO SCH (09:00)
[2019-03-06] MEDS ORDERED: LOSARTAN POTASSIUM 50 MG TAB PO SCH (09:00)
[2019-03-06 11:11] VITALS: O2SAT 94
--- NOTE | 2019-03-06 14:24 | Hospitalist Progress Note ---
Date of Service March 06, 2019 Results & Data Vital Signs (Past 12 Hours) Vital Signs Temp Pulse Resp BP BP Pulse Ox 03/06/19 11:11 36.9 C 67 18 145/84 H 94 03/06/19 07:35 36.8 C 55 L 18 154/83 H 96 03/06/19 04:24 36.6 C 62 18 145/74 H 95
[2019-03-06 15:18] VITALS: BP 146/84; TEMP 98.2
--- NOTE | 2019-03-06 15:26 | Neurology Progress Note ---
Date of Service March 06, 2019 Assessment & Plan (1) CVA (cerebral vascular accident): 1. MRI stroke - periventricular lacunar stroke right frontal lobe 2. TTE- no ASD 3. optimize HTN, HLD LDL<70 4. carotid doppler no significant stenosis- will order CTA head and neck- unstable plaque on left carotid bulb-not related to stroke 5. PT/OT speech for discharge needs 6. decrease caffeine use 7. admission in Apr 2018 resulted in a stress echo which was normal 8. aspirin 81 mg and plavix 75 mg x 3 weeks and then aspirin for a lifetime will follow up in neurology 4-6 weeks after discharge Candace Unger PAC schedule (2) Headache: 1. tylenol prn Supervising Physician Co-Signing Physician Notes I have seen and discussed above patient with Dr Bari Syed, neurology I have seen Linda today, examined him briefly, reviewed her CT angiographic studies and discussed her case with Candace Unger and her attending physician She looks very well feels well has no headache and no neurologic deficits today that I can demonstrate on exam She does have a possible unstable small plaque at the carotid bifurcation on the incorrect side to explain her stroke and apparently the vascular surgery and neurology services at [facility] were consulted and have recommended dual antiplatelet therapy only and follow-up in 3 to 4 weeks and this was the plan we were going to initiate anyway since we do not have a vascular surgeon here 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 The odds of surgical intervention being done would have been low anyway particularly since it was asymptomatic and did not explain the vascular event We are going to see her in follow-up continue the dual antiplatelet program until that time and make a decision then about whether an outpatient ZIO Patch needs to be performed as part of the work-up In the interim she is going to have her vascular risk factors modified as best we can by her primary care physician using appropriate lipid-lowering therapy, antihypertensive therapy etc. She is going to be discharged today with follow-up as above Bari Syed MD Petros Mckeon is a 68 year old female with a PMH hypothyroid, depression GERD, headache, HTN who presented with a 2 weeks history of headaches located behind her face. She states that these headaches started after she had a migraine about a week ago. She explains that she took Excedrin that helped relieve her migraine. she still has a headache but currently it is just a dull ache. She has also had a dull aching pain in her right arm for the past week. She became confused Tuesday in [facility] and was unable to comprehend what her wanted her to do. She states that once she got home from [facility] she took her blood pressure which was elevated. She notes that she has experienced hypertension before as her blood pressure medication had to be switched in December 2018. She states once she was at the hospital the confusion resolved.There are heart issues in her family but she was never told she had any, and did not have rheumatic fever as a child. She does not take aspirin daily. Today she states she is feeling well with no recurrent symptoms. Discussed results of the CTA head and neck and she voiced an understanding. denies CP, SOB, abdominal pain, one sided weakness,numbness tingling, N, V, vision changes, bowel or bladder issues, dizziness, +current mild headache. Physical Exam Physical Exam: Gen: alert NAD PERRL/EOMI lungs CTA CV RRR finger to nose no bi pass hand log brander biceps triceps 5/5 bilaterally, hip flex 5/5 bilaterally no pronator drift Results & Data Vital Signs (Past 12 Hours) Vital Signs Temp Pulse Resp BP BP Pulse Ox 03/06/19 15:17 36.8 C 61 21 146/84 H 94 03/06/19 11:11 36.9 C 67 18 145/84 H 94 03/06/19 07:35 36.8 C 55 L 18 154/83 H 96 03/06/19 04:24 36.6 C 62 18 145/74 H 95 Laboratory Results no new labs Diagnostic Findings CTA head/neck - Mixed plaque of the bilateral carotid bulbs, left greater the right results in less than 50% stenosis bilaterally. There is an eccentric 1 mm portion of the atheromatous plaque along the left carotid bulb which is suspicious for an unstable plaque fragment. 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 No dissection, high-grade stenosis or proximal branch occlusion identified. Acute lacunar infarction of the liao radiata right frontal lobe re demonstrated. (1) Headache Headache chronicity pattern: unspecified pattern Headache type: unspecified Intractability: not intractable Qualified Code(s): R51 - Headache
[2019-03-06] MEDS ORDERED: STROKE PATIENT DISCHARGE STA (16:20)
--- NOTE | 2019-03-06 16:35 | Discharge Summary ---
Date of Service March 06, 2019 Admission HPI Per Admitting Provider 68-year-old female followed by Dr. Cecilia Quarles for Family Medicine. History of hypertension, dyslipidemia, and other problems noted below. This afternoon she was shopping with her when she had a episode of confusion. reports that she did not seem to understand what he was telling her. Patient has vague recollection of the episode. No focal neurologic symptoms. She was experiencing a headache that was diffuse and fairly severe. History of migraine headaches. Had a headache about 3 days prior to admission associated with visual changes. Experienced vertigo 2 days ago which is not unusual for her. After the episode this afternoon, she experienced some mild shortness of breath and some mild chest discomfort with deep inspiration. Brought to the ED. Blood pressure upon arrival was 180/104. Patient was feeling significantly better by the time of my assessment and her headache had essentially resolved. Admission Exam Per Admitting Provider Constitutional: WD/WN, vitals as above no acute distress Eyes: PERRL, conjunctivae normal, anicteric sclerae ENMT: external ear and nose normal, oropharynx normal Neck: trachea midline, no thyromegaly Respiratory: normal respiratory effort, lungs clear to auscultation Cardiovascular: Rate/Rhythm: regular rate Heart Sounds: + gallop (S4); no murmur and no cardiac rub Vessels: no JVD Extremities: normal capillary refill; no calf tenderness and no edema occasional ectopy Gastrointestinal (Abdomen): normal bowel sounds, soft, nontender, no hepa tosplenomegaly Musculoskeletal: Head/Neck/Chest: neck supple Extremities: strength 5/5 throughout; no cyanosis and no clubbing Skin: no rashes, warm and dry Neurologic: PERRL, EOMI no facial palsy no dysarthria or aphasia patellar DTR's 2/2 bilat plantar reflexes downgoing Psychiatric: Orientation: alert and oriented x 3 Affect: euthymic affect Lymphatic: no cervical lymphadenopathy Principal Diagnosis CVA (Periventricular lacunar stroke right frontal lobe) Discharge Exam Constitutional well developed and well nourished; no acute distress Eyes PERRL, conjunctivae normal, anicteric sclerae ENMT external ear and nose normal, oropharynx normal Neck trachea midline, no thyromegaly normal visual inspection Respiratory normal respiratory effort, lungs clear to auscultation no respiratory distress Cardiovascular RRR, no murmur, no edema Heart Sounds: normal S1 and normal S2 Gastrointestinal (Abdomen) normal bowel sounds, soft, nontender, no hepatosplenomegaly Musculoskeletal no cyanosis or clubbing, extremities motor strength 5/5 Neurologic PERRL, EOMI, accommodation nl, no face palsy, no dysarthria normal touch/pain/proprioception and moves all extremities; no focal motor deficits Psychiatric A+Ox3, euthymic affect Discharge Data Allergies Allergy/AdvReac Type Severity Reaction Status Date / Time Sulfa (Sulfonamide Allergy Unknown Swelling Verified 03/04/19 17:36 Antibiotics) codeine AdvReac Intermediate CONFUSION Verified 03/04/19 17:36 Consultations 03/04/19 18:34 ED Decision to Admit Stat 03/04/19 20:19 Consult Case Management - Discharge Planning Routine 03/05/19 07:00 Consult Neurology Routine Ordered Studies 03/04/19 17:04 CT head/brain wo con Stat 1. No acute intracranial hemorrhage, midline shift or acute territorial infarct. 2. Suggestion of mild chronic vascular ischemic disease. There is a new 11 mm ill-defined hypodense focus involving the periventricular white matter of the right frontal lobe adjacent to the right caudate nucleus suggestive of age- indeterminate lacunar infarction versus progressive chronic microvascular ischemic disease, new from 04/21/2018. Correlate with clinical presentation. 03/04/19 20:19 US carotid doppler BI Routine No hemodynamically significant stenosis seen within the carotid arteries. Mild plaque formation bilaterally 03/05/19 06:04 MR brain wo con Routine An acute lacunar infarct within the periventricular white matter of the right frontal lobe. 03/05/19 16:05 CT angio head w con Routine CT angio neck with con Routine 1. Mixed plaque of the bilateral carotid bulbs, left greater the right results in less than 50% stenosis bilaterally. There is an eccentric 1 mm portion of the atheromatous plaque along the left carotid bulb which is suspicious for an unstable plaque fragment. 2. 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 3. No dissection, high-grade stenosis or proximal branch occlusion identified. 4. Acute lacunar infarction of the liao radiata right frontal lobe redemonstrated. Hospital Course (1) CVA (cerebral vascular accident): (2) Confusion: Confusion resolved. Head CT demonstrates small vessel ischemic changes and a lesion in the right caudate that is new since April 2018. MRI brain showed an acute lacunar infarct and periventricular white matter of the right frontal lobe Carotid duplex was negative for any hemodynamically significant stenosis 2D echo showed borderline concentric LVH, EF 60 to 65%, normal RV systolic function normal and atria. EKG showed normal sinus rhythm Got aspirin [address] angios shows mixed plaque of bilateral carotid bulbs, less than 50% stenosis bilaterally. Suspicion for unstable plaque fragment I discussed the case with the neurologist Dr. Syed and Dr Matthews. Recommendations were to do dual antiplatelet for 3 weeks after which patient continue aspirin lifelong. Atorvastatin increased to 40 mg daily Patient is also to follow-up with neurosurgery outpatient for evaluation. Called the same through transfer center who stated Neurosurgery will triage and get back to patient for possible appointment outpatient Patient is to follow-up with neurology and PCP and appointment dates already scheduled (3) Chest pain, precordial: Patient experienced some mild substernal chest discomfort with deep inspiration after her episode of confusion. EKG showed normal sinus rhythm Serum troponin less than 0.015. Low likelihood of PE Echo noted as asked above (4) Hypertension: Takes carvedilol 6.25 mg twice daily, losartan 50 mg daily BP elevated upon presentation to ED. currently in the 140s over 80s Continue carvedilol. Resume home losartan Monitor blood pressure (5) GERD (gastroesophageal reflux disease): Continue PPI. (6) Hypothyroidism: TSH normal. Continue levothyroxine. Follow-up with PCP about 8 mm thyroid nodule seen on imaging (7) Depression: Stable Continue escitalopram. Total Time Total Time Spent Total Time Spent (In Minutes): 40 Total Time Includes: Examination of the Patient, Discharge Planning, Medication Reconciliation and Communication With Other Providers Discharge Plan Discharge Items Patient Disposition: Home - Self-Care Reason For Visit: Confusion Discharge Diagnosis: Stroke (Cerebrovascular Accident) Condition on Discharge: Good Activity: Resume your previous activity Non-emergency contact: Primary Care Provider and Neurologist Call non-emergency contact if: you have any medication questions and your symptoms worsen Follow-up/Referrals: Cecilia Quarles DO [Primary Care Provider] - 03/14/19 10:55 am Bari Syed MD [Physician] - 04/04/19 2:25 pm (Follow up in 4 - 6 weeks) Diet: Heart Healthy Addtl Attending Provider Instructions: Ms Thal You came to the hospital after an episode of confusion while shopping. You were evaluated and found to have Right sided stroke. You were started on aspirin and your atorvastatin was increased to 40mg daily. You had multiple scans and comanaged with the Neurologist. Your confusion resolved and you did not have any motor deficits. Your CT angiogram showed some narrowing in some of the blood vessels supplying your brain complex in the blood vessels. You are being discharged on aspirin and Plavix daily for 3 weeks, after which you continue aspirin for life. Your atorvastatin was increased to 40 mg daily. You will need to follow-up with the neurosurgery office at [facility] for evaluation of the narrowing and plaque seen on CT angiogram. CT also showed a small thyroid nodule (8mm). Follow this up with your Primary Doctor Please follow up with your Primary Doctor within 7 days Please follow up with the Neurology office in 4 - 6 weeks. It was a pleasure taking care of you. Pending Studies at Discharge: No Stand-Alone Forms: [facility] [place], Smoking Cessation Medications and DC Order Prescriptions: New atorvastatin 40 mg Tablet 40 mg PO QAM 30 Days Qty: 30 RF: 0 aspirin [Ecotrin Low Strength] 81 mg Tablet,Delayed Release (Dr/Ec) 81 mg PO QAM 30 Days Qty: 30 RF: 0 clopidogrel [Plavix] 75 mg tablet 75 mg PO DAILY 21 Days Qty: 21 RF: 0 Continued meclizine 12.5 mg Tablet 12.5 mg PO TID PRN (Reason: Dizziness) RF: 0 buspirone 10 mg Tablet 10 mg PO BID RF: 0 fluticasone propionate [Flonase Allergy Relief] 50 mcg/actuation Warren,Suspension 2 spray INTRANASAL QAM RF: 0 escitalopram oxalate [Lexapro] 20 mg Tablet 20 mg PO QAM RF: 0 pantoprazole 40 mg tablet,delayed release (DR/EC) 40 mg PO QAM RF: 0 losartan 50 mg Tablet 50 mg PO DAILY RF: 0 carvedilol 6.25 mg tablet 6.25 mg PO BID RF: 0 bupropion HCl 150 mg Tablet Sustained-Release 12 Hr 150 mg PO BID RF: 0 levothyroxine 75 mcg Tablet 75 mcg PO QAM RF: 0 vitamin B complex Tablet 1 tab PO HS RF: 0 ranitidine HCl 150 mg Capsule 150 mg PO BID RF: 0 albuterol sulfate 90 mcg/actuation Hfa Aerosol Inhaler 2 puff INHALATION QID PRN (Reason: Shortness Of Breath) RF: 0 cholecalciferol (vitamin D3) [Vitamin D3] 2,000 unit Capsule 2,000 unit PO QAM RF: 0 Discontinued atorvastatin [Lipitor] 10 mg Tablet 10 mg PO QAM RF: 0 Discharge Orders: Discharge Order (Routine); Ordered 03/06/19 Ordered By: Myriam Joseph Admission Data Admit Date/Time: 03/04/19 18:45 Attending Provider: Myriam Joseph I. Admit Provider: Bari Stinson Primary Care Provider: Cecilia Quarles Other Providers: Bari Stinson ; Bari Syed
[2019-03-06 17:13] VITALS: PULSE 63
--- NOTE | 2019-03-08 15:17 | Pharmacy Report ---
Pharmacist Post D/C Phone Note - Phone Note: Date of phone call: March 08, 2019. Individual with whom pharmacist spoke to: RAIMUNDO MANUEL The following questions were reviewed during the phone call with responses listed below each: Can you tell me the medications that you are currently taking as well as when and how you take each medication? -See Table Below When have you missed any doses of your medications? - denies missed doses What side effects are you having from your medications, specifically, the new medications you were started on? - denies side effects (pt reports she has had a headache but attributes this to sinnus congestion) What questions do you have about your medications? - Raimundo asked what over the counter pain reliever she can use for headache. I advised her that Tylenol is preferred while taking aspirin and plavix due to increased risk of bleeding with NSAIDs. I advised her to contact her PCP to discuss alternative pain control if tylenol does not offer relief. What problems are you having obtaining your medications? - denies problems When is your next appointment with your primary care doctor? - March 14 - PCP - End march - Dr. Syed - Waiting carbon dioxide operator from [facility] regarding appt there Additional comments: - I reenforced that she is to take aspirin with plavix for three weeks then stop the plavix but continue aspirin lifelong (unless otherwise directed by neuro at f/u appointments). - Patient takes ranitidine and protonix at home for reflux. Reminded her not to use omeprazole. As per the Pharmacist Discharge Counseling for Stroke Patients Protocol, this phone call has been completed within 72 hours of discharge. Thank you for allowing us to be involved in the care of this patient. - Home Medications: Home Medications Medication Instructions Recorded Confirmed albuterol sulfate 2 puff INHALATION QID PRN 11/25/17 03/04/19 bupropion HCl 150 mg PO BID 11/25/17 03/04/19 cholecalciferol (vitamin D3) 2,000 unit PO QAM 11/25/17 03/04/19 [Vitamin D3] levothyroxine 75 mcg PO QAM 11/25/17 03/04/19 ranitidine HCl 150 mg PO BID 11/25/17 03/04/19 vitamin B complex 1 tab PO HS 11/25/17 03/04/19 buspirone 10 mg PO BID 04/20/18 03/04/19 escitalopram oxalate [Lexapro] 20 mg PO QAM 04/20/18 03/04/19 fluticasone propionate [Flonase 2 spray INTRANASAL QAM 04/20/18 03/04/19 Allergy Relief] meclizine 12.5 mg PO TID PRN 04/20/18 03/04/19 pantoprazole 40 mg PO QAM 03/04/19 03/04/19 carvedilol 6.25 mg PO BID 03/05/19 03/05/19 losartan 50 mg PO DAILY 03/05/19 03/05/19 New Rx's Medication Instructions Recorded aspirin [Ecotrin Low Strength] 81 mg PO QAM 30 Days #30 tab 03/06/19 atorvastatin 40 mg PO QAM 30 Days #30 tab 03/06/19 clopidogrel [Plavix] 75 mg PO DAILY 21 Days #21 tab 03/06/19
== END 2019-03-06 18:17 | disposition home or self-care (01) | DRG 66 ==
LOC: ED 16:43 → SUATTDRO 18:45 → 2N 18:45

== ENCOUNTER 2024-02-20 09:17 | Inpatient (IN) ==
[2024-02-20] MEDS: NITROGLYCERIN 2% OINTMENT 30GM TUBE EXT STA (09:40)
[2024-02-20] MEDS ORDERED: SODIUM CHLORIDE 0.9% 50 ML IV PRN ×2 (10:02→12:24)
[2024-02-20 10:03] LABS: Hematocrit (blood only) 21.1 % (37.0-47.0); Hemoglobin 6.3 g/dl (12.0-16.0); Mean Corpuscular Hemoglobin 24.7 pg (25.0-34.0); Mean Corpuscular Hgb Conc 29.9 g/dL (32.0-36.0); Mean Corpuscular Volume 82.7 fL (80.0-100.0); Mean Platelet Volume 9.9 fL (9.4-12.4); Platelet Count 317 K/uL (130-400); RDW Coefficient of Variation 15.6 % (11.5-14.5); RDW Standard Deviation 46.9 fL (36.4-46.3); Red Blood Count 2.55 M/uL (4.20-5.40); White Blood Count 5.27 K/ul (4.8-10.8)
[2024-02-20] MEDS: carvediloL 6.25 MG TAB PO STA (10:03)
[2024-02-20] MEDS: FUROSEMIDE INJ 20 MG/2 ML VIAL IV ONE ×2 (10:04→15:29)
[2024-02-20] MEDS: LOSARTAN POTASSIUM 50 MG TAB PO STA (10:04)
--- NOTE | 2024-02-20 10:14 | Emergency Department Note ---
Impression & Plan Precordial chest pain, SOB (shortness of breath), CHF (congestive heart failure), Anemia, Exertional dyspnea, Elevated troponin, Hypertension ED Provider Note NAME: RAIMUNDO MANUEL AGE: 73 SEX: F : 1950 ARRIVES VIA: Ambulance INFORMANT: [Patient] ED PROVIDER(S): [Eldon Saini MD] CHIEF COMPLAINT: Chest pain HISTORY OF PRESENT ILLNESS: The patient is a 73-year-old female who presents to the ER with chest pain and dyspnea. She first noticed the symptoms last night when she walked up 16 stairs. She had symptoms for about 30 minutes or so, everything resolved eventually with rest. She noticed the same issue this morning when she would exert herself. She presents for evaluation. She did receive 4 baby aspirin in route, she currently, resting on the stretcher, has no chest pain or dyspnea. The patient has had a CVA, she has no history of AZ. The patient thought last night when she was sleeping she may have heard some wheezing in her lungs. She has not had fever, no cough or congestion or cold- like symptoms. PMHx/PSHx/Social Hx: See Below PHYSICAL EXAM: GENERAL: Patient is in no acute distress. HEENT: No acute trauma, normocephalic atraumatic, mucous membranes moist, no nasal congestion. NECK: No stridor, no adenopathy, no meningismus, trachea is midline. LUNGS: Diminished breath sounds with some crackles bilaterally. No respiratory distress. HEART: Without murmurs gallops or rubs, regular rate and rhythm. ABDOMEN: Soft, nontender, no peritonitis. EXTREMITIES: No cyanosis, full range of motion of all the joints without pain or difficulty. NEUROLOGIC: Oriented x 3, no acute motor or sensory deficits, no focal weakness. SKIN: No jaundice, no diaphoresis. Rectal: Brown stool, heme-negative. DIFFERENTIAL DIAGNOSIS: AZ, CHF, pneumonia, cardiac ischemia, anemia, among others. EMERGENCY DEPARTMENT PROCEDURES: MEDICAL DECISION MAKING: There is no leukocytosis. The patient is anemic with a hemoglobin of 6.3. There is a normal platelet count. No coagulopathy. Magnesium low at 1.6, no renal failure. BNP was elevated consistent with fluid overload. There were no findings of pancreatitis. ECG showed a sinus rhythm, no ST elevation. Cardiac enzyme testing was slightly elevated. This troponin elevation could be secondary to cardiac injury or mismatch given her dyspnea and anemia. Chest x- ray did show heart failure. A rectal exam was performed and the stool was brown and heme-negative. The patient's urinalysis does not show infection. Respiratory bio fire returned negative. The patient presents with dyspnea on exertion and some chest discomfort on exertion. She was found to be anemic and in heart failure. Patient received IV Lasix for diuresis. She was given IV magnesium. She was given her typical dose of oral carvedilol and oral losartan as she had missed these medications this morning. The patient's blood pressure did not improve with her typical BP meds. She was without complaints while resting on the stretcher. The patient is in need of a hospital stay. Certainly, the anemia and heart failure explain her dyspnea and chest discomfort. The cause for the anemia is unclear. The patient may require a packed red blood cell transfusion during this hospital stay but, as she is in heart failure, I have refrained from transfusing packed red blood cells while here in the ED. I did speak with the patient and case management. The on-call hospitalist was consulted. Prior/Outside records/notes reviewed: Today's EMS notes describing her presentation and transport to this hospital. ECG per my interpretation: Indication was chest pain. The ECG shows a normal sinus rhythm with a rate of 86. There is an inverted T wave noted in the high lateral leads. There is no ST elevation, no PVCs. The QTc is 442. Continuous Cardiac Monitoring per my interpretation: An order was placed for continuous cardiac monitoring. The monitor shows a rate of 71 with normal sinus rhythm. Imaging/x-ray results per my interpretation: Chest x-ray shows some cardiomegaly and CHF. Chronic Medical/Social conditions affecting care: Advanced age. Care/Management discussed with: Case management, the on-call hospitalist. Level of care consideration(s): After review of the information above and other included data: --I believe the patient requires escalation of care to admission Critical Care Note: I have personally spent 51 minutes of critical care time in the direct management of this patient. This includes bedside care, interpretation of diagnostic studies, and testing, discussion with consultants, patient, and family members, and other required patient management activities. This 51 minutes is in excess of all separately billable procedures. DISPOSITION: Admission Past Med/Surg History Problem List (Updated 02/20/24 @ 17:08 by Eldon Saini MD) Hypertension (Acute) Elevated troponin (Acute) Exertional dyspnea (Acute) Anemia (Acute) CHF (congestive heart failure) (Acute) SOB (shortness of breath) (Acute) Precordial chest pain (Acute) Hypomagnesemia Elevated troponin Symptomatic anemia Lateral pain of left hip Neuroforaminal stenosis of lumbar spine Lumbar facet joint syndrome Adjacent segment disease of lumbar spine with history of fusion procedure Trigger thumb, left thumb Triquetral fracture Scaphoid fracture Shoulder sprain Fracture of greater tuberosity of left humerus Greater trochanteric bursitis CVA (cerebral vascular accident) Discharge planning issues DVT prophylaxis Depression Hypothyroidism GERD (gastroesophageal reflux disease) Abnormal brain CT (Acute) Hypertension (Acute) Headache (Acute) Confusion (Acute) Chest pain Chest pain, precordial (Acute) Multiple fractures of ribs of right side (Acute) Fall (Acute) Medical History Depression Hypothyroidism GERD (gastroesophageal reflux disease) History of COVID-19 fall 2022- no hosp; resolved Diabetes History of CVA (cerebrovascular accident) ~2019- chest/back pressure and elevated BP, memory loss; no deficits, no neuro at this time, managed by PCP Seasonal allergies prn inh for this, not asthma or copd, rare use of rescue inhaler Hyperlipidemia Hypertension Surgical History History of tooth extraction Hx of thumb surgery Open left trigger thumb release History of esophagogastroduodenoscopy (EGD) Hx of colonoscopy Status post lumbar surgery L4, L5, S1 Family History Mother Hypertension Stroke Alzheimer disease Father Lung cancer Brother Coronary heart disease Social History Smoking Status: Never smoker Second Hand Exposure: Yes ( smokes); Do You Dip or Chew Tobacco: No; Hx Alcohol Use: Yes Alcohol type: wine Hx Substance Use: No Preferred Language: Lithuanian Communication Ability: Effective Visual Impairment: No Limitations Hearing Ability: Normal Glass Cutter Required: No Beliefs That Will Affect Care: None marital status: Current Living Situation: Spouse Current Living Situation Comment: Lives with spouse current occupational status: employed 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 Other Information That Helps Us Care for You: No Feels Safe at Home: Yes Safety Concerns: Feels Safe At This Time Assistive Devices: Denture - Upper and Glasses Allergies Allergies Allergy/AdvReac Type Severity Reaction Status Date / Time Sulfa (Sulfonamide Allergy Unknown Swelling Verified 02/20/24 11:18 Antibiotics) codeine AdvReac Intermediate CONFUSION Verified 02/20/24 11:18 Home Meds Home Medications Medication Instructions Recorded Confirmed bupropion HCl 150 mg tablet,12 hr 150 mg PO BID 11/25/17 02/20/24 sustained-release cholecalciferol (vitamin D3) 50 2,000 unit PO QAM 11/25/17 02/20/24 mcg (2,000 unit) capsule (Vitamin D3) levothyroxine 75 mcg tablet 75 mcg PO QAM 11/25/17 02/20/24 buspirone 10 mg tablet 10 mg PO BID 04/20/18 02/20/24 escitalopram oxalate 20 mg tablet 20 mg PO QAM 04/20/18 02/20/24 (Lexapro) fluticasone propionate 50 2 spray intranasal QAM 04/20/18 02/20/24 mcg/actuation nasal spray,suspension (Flonase Allergy Relief) meclizine 12.5 mg tablet 12.5 mg PO TID PRN Dizziness 04/20/18 02/20/24 pantoprazole 40 mg tablet,delayed 40 mg PO QAM 03/04/19 02/20/24 release carvedilol 6.25 mg tablet 6.25 mg PO BID 03/05/19 02/20/24 losartan 50 mg tablet 50 mg PO QAM 03/05/19 02/20/24 aspirin 81 mg tablet,delayed 81 mg PO QAM 09/15/22 02/20/24 release atorvastatin 80 mg tablet 80 mg PO QAM 09/15/22 02/20/24 famotidine 20 mg tablet 20 mg PO BID 09/15/22 02/20/24 metformin 500 mg tablet,extended 500 mg PO QAM 09/15/22 02/20/24 release 24 hr diclofenac sodium 75 mg 75 mg PO BID PRN Pain 01/04/24 02/20/24 tablet,delayed release prednisolone acetate 1 % eye 1 drp OPL QID 02/20/24 02/20/24 drops,suspension Previous Rx's Medication Instructions Recorded albuterol sulfate 90 mcg/actuation 2 puffs inhalation Q4H PRN 10/30/19 aerosol inhaler shortness of breath or wheezing #8 grams tramadol 50 mg tablet 50 mg PO Q6H PRN pain #20 tabs 05/26/23 Results & Data (ED) Vital Signs Vital Signs - 24 hr 02/20/24 09:22 02/20/24 09:22 02/20/24 09:24 Temperature Temperature Source Pulse Rate 83 Pulse Rate [Apical] Pulse Rate from SpO2 Sensor Respiratory Rate Respiratory Effort / Characteristics Respiratory Depth Blood Pressure 206/93 H 206/93 H Blood Pressure [Left Arm] Blood Pressure Mean 172 172 Blood Pressure Mean [Left Arm] Pulse Oximetry Oxygen Delivery Method Oxygen Flow Rate Sepsis Recent Fever Within 48 Hours Sepsis New/Unexplained Change in Mental Status Sepsis Action Taken by Nursing 02/20/24 09:27 02/20/24 09:34 02/20/24 09:46 Temperature 36.9 C Temperature Source Oral Pulse Rate 84 Pulse Rate [Apical] Pulse Rate from SpO2 Sensor Respiratory Rate 21 Respiratory Effort / Characteristics Respiratory Depth Normal Blood Pressure 206/93 H 163/113 H Blood Pressure [Left Arm] Blood Pressure Mean 130 124 Blood Pressure Mean [Left Arm] Pulse Oximetry 91 96 Oxygen Delivery Method Room Air Nasal Cannula Oxygen Flow Rate 2 Sepsis Recent Fever Within 48 Hours No Sepsis New/Unexplained Change in Mental Status N/A Sepsis Action Taken by Nursing No Action Required 02/20/24 09:48 02/20/24 09:51 02/20/24 09:54 Temperature Temperature Source Pulse Rate 72 72 Pulse Rate [Apical] 71 Pulse Rate from SpO2 Sensor 71 73 Respiratory Rate 22 18 16 Respiratory Effort / Characteristics Non-Labored Spontaneous Respiratory Depth Normal Blood Pressure Blood Pressure [Left Arm] 163/113 H Blood Pressure Mean Blood Pressure Mean [Left Arm] 129 Pulse Oximetry 97 97 97 Oxygen Delivery Method Nasal Cannula Oxygen Flow Rate 2 Sepsis Recent Fever Within 48 Hours Sepsis New/Unexplained Change in Mental Status Sepsis Action Taken by Nursing 02/20/24 10:00 02/20/24 10:03 02/20/24 10:27 Temperature Temperature Source Pulse Rate 72 79 Pulse Rate [Apical] Pulse Rate from SpO2 Sensor 72 80 Respiratory Rate 15 15 Respiratory Effort / Characteristics Respiratory Depth Blood Pressure 158/85 H Blood Pressure [Left Arm] Blood Pressure Mean 111 Blood Pressure Mean [Left Arm] Pulse Oximetry 97 96 Oxygen Delivery Method Oxygen Flow Rate Sepsis Recent Fever Within 48 Hours Sepsis New/Unexplained Change in Mental Status Sepsis Action Taken by Nursing 02/20/24 10:30 02/20/24 10:30 02/20/24 10:30 Temperature Temperature Source Pulse Rate Pulse Rate [Apical] Pulse Rate from SpO2 Sensor Respiratory Rate Respiratory Effort / Characteristics Respiratory Depth Blood Pressure 157/83 H 157/83 H 157/83 H Blood Pressure [Left Arm] Blood Pressure Mean 108 108 108 Blood Pressure Mean [Left Arm] Pulse Oximetry Oxygen Delivery Method Oxygen Flow Rate Sepsis Recent Fever Within 48 Hours Sepsis New/Unexplained Change in Mental Status Sepsis Action Taken by Nursing 02/20/24 10:33 Temperature Temperature Source Pulse Rate 74 Pulse Rate [Apical] Pulse Rate from SpO2 Sensor 73 Respiratory Rate 15 Respiratory Effort / Characteristics Respiratory Depth Blood Pressure Blood Pressure [Left Arm] Blood Pressure Mean Blood Pressure Mean [Left Arm] Pulse Oximetry 97 Oxygen Delivery Method Oxygen Flow Rate Sepsis Recent Fever Within 48 Hours Sepsis New/Unexplained Change in Mental Status Sepsis Action Taken by Custodial Medications Current Medication List: was personally reviewed by me Laboratory Data Attestation: I reviewed the patient's lab results. 02/20/24 09:30 02/20/24 09:30 Lab Results 02/20/24 02/20/24 Range/Units 09:30 10:17 WBC 5.27 (4.8-10.8) K/ul RBC 2.55 L (4.20-5.40) M/uL Hgb 6.3 L* (12.0-16.0) g/dl Hct 21.1 L (37.0-47.0) % MCV 82.7 (80.0-100.0) fL MCH 24.7 L (25.0-34.0) pg MCHC 29.9 L (32.0-36.0) g/dL RDW Std Deviation 46.9 H (36.4-46.3) fL RDW Coeff of Clarita 15.6 H (11.5-14.5) % Plt Count 317 (130-400) K/uL MPV 9.9 (9.4-12.4) fL Immature Gran % (Auto) 0.2 % Neut % (Auto) 51.6 % Lymph % (Auto) 39.3 % Moca % (Auto) 6.6 % Eos % (Auto) 1.9 % Baso % (Auto) 0.4 % Neut # (Auto) 2.72 (1.40-6.50) K/uL Lymph # (Auto) 2.07 (1.20-3.40) K/uL Moca # (Auto) 0.35 (0.11-0.59) K/uL Eos # (Auto) 0.10 (0.00-0.50) K/uL Baso # (Auto) 0.02 (0.00-0.20) K/uL Immature Gran # (Auto) 0.01 (0.01-0.20) K/uL Hypochromasia Present PT 10.6 (9.0-12.0) Seconds INR 1.0 (0.9-1.1) APTT 25 (21-31) Seconds PTT Ratio 0.9 Sodium 138 (136-145) mmol/L Potassium 3.9 (3.5-5.1) mmol/L Chloride 105 (98-107) mmol/L Carbon Dioxide 22 (21-32) mmol/L Anion Gap 11 (3-11) BUN 9 (6-23) mg/dl Creatinine 0.61 (0.6-1.2) mg/dl Est Cr Clr Drug Dosing 94.2 ml/min eGFR 95.52 BUN/Creatinine Ratio 14.8 (10-20) Glucose 143 H (70-99(Fasting)) mg/dl Calcium 8.9 (8.6-10.3) mg/dl Magnesium 1.6 L (1.7-2.4) mg/dl Total Bilirubin 0.3 (0.2-1.0) mg/dl AST 30 (13-39) U/L ALT 35 (7-52) U/L Alkaline Phosphatase 80 (34-104) U/L Troponin I High Sens 30.0 H (0-14) pg/ml B-Natriuretic Peptide 395 H (0-100) pg/ml Total Protein 6.6 (6.0-8.3) gm/dl Albumin 3.6 (3.4-5.0) gm/dl Globulin 3.0 (2.5-4.0) gm/dl Albumin/Globulin Ratio 1.2 (0.9-2) Lipase 26 (11-82) U/L Blood Type A Positive Antibody Screen NEGATIVE Crossmatch See Detail Administered Medications Sodium Chloride (Nss) 100 mls @ 15 mls/hr IV .[id number] PRN PRN Reason: For Transfusion Duration Stop: 02/20/24 18:02 Last Admin: 02/20/24 12:51 Dose: 15 mls/hr Documented By: JOHNY Discontinued Medications Carvedilol (Carvedilol 6.25 Mg Tab) 6.25 mg PO NOW STA Stop: 02/20/24 09:35 Last Admin: 02/20/24 10:03 Dose: 6.25 mg Documented By: HS Furosemide (Furosemide Inj 20 Mg/2 Ml Vial) 20 mg IV ONE ONE Stop: 02/20/24 09:55 Last Admin: 02/20/24 10:04 Dose: 20 mg Documented By: HS Furosemide (Furosemide Inj 20 Mg/2 Ml Vial) 20 mg IV ONE ONE Stop: 02/20/24 14:31 Last Admin: 02/20/24 15:29 Dose: 20 mg Documented By: JASWINDER Magnesium Sulfate/Dextrose (Magnesium Sulfate / D5w) 1 gm in 100 mls @ 100 mls/hr IV NOW STA Stop: 02/20/24 11:24 Last Infusion: 02/20/24 11:42 Dose: Infused Documented By: Admin: 02/20/24 10:40 Dose: 100 mls/hr Documented By: HS Losartan Potassium (Losartan Potassium 50 Mg Tab) 50 mg PO NOW STA Stop: 02/20/24 09:35 Last Admin: 02/20/24 10:04 Dose: 50 mg Documented By: HS Nitroglycerin (Nitroglycerin 2% Ointment 30gm Tube) 1 inch EXT NOW STA Stop: 02/20/24 09:35 Last Admin: 02/20/24 09:40 Dose: 1 inch Documented By: HS Imaging Data Radiologist's Impression: Chest X-Ray 02/20/24 09:34 XR chest 1V portable CLINICAL HISTORY: Chest pain, nonspecific COMPARISON STUDY: Chest CT April 21, 2018. Chest radiograph April 17, 2023. FINDINGS: There is no pneumothorax. There are suspected small bilateral pleural effusions. Hazy bibasilar opacities are present. There is interstitial thickening. The heart is moderately enlarged. Right hilar prominence is noted. IMPRESSION: 1. Cardiomegaly with interstitial pulmonary edema. 2. Small bilateral pleural effusions with hazy bibasilar opacities. 3. Right hilar prominence, likely due to pulmonary vasculature. This can be assessed on follow-up exams. ACT 112: Negative or not required by law. Electronically signed by: Kashmir Davis M.D. 02/20/2024 10:22 AM Discharge Plan Visit Data Chief Complaint: Chest Pain Stated Complaint: CHEST PAIN, SOB ED Provider: Eldon Saini Discharge Problem: Precordial chest pain, SOB (shortness of breath), CHF (congestive heart failure), Anemia, Exertional dyspnea, Elevated troponin, Hypertension Patient Disposition: Admitted As Inpatient Condition: Serious Discharge Instructions Interventions: ED Discharge Assessment Last Done: 02/20/24 14:09 Discharge Problem: CHF (congestive heart failure) Qualifiers: Heart failure type: unspecified Heart failure chronicity: acute Qualified Code(s): I50.9 - Heart failure, unspecified Anemia Qualifiers: Anemia type: unspecified type Qualified Code(s): D64.9 - Anemia, unspecified Hypertension Qualifiers: Hypertension type: unspecified Qualified Code(s): I10 - Essential (primary) hypertension
[2024-02-20 10:20] LABS: Basophils # (auto) 0.02 K/uL (0.00-0.20); Basophils % (auto) 0.4 %; Eosinophils % (auto) 1.9 %; Hypochromasia Present; Immature Granulocytes # (auto) 0.01 K/uL (0.01-0.20); Immature Granulocytes % (auto) 0.2 %; Lymphocytes # (auto) 2.07 K/uL (1.20-3.40); Lymphocytes % (auto) 39.3 %; Monocytes # (auto) 0.35 K/uL (0.11-0.59); Monocytes % (auto) 6.6 %; Neutrophils # (auto) 2.72 K/uL (1.40-6.50); Neutrophils % (auto) 51.6 %
[2024-02-20 10:23] LABS: Albumin Globulin Ratio 1.2 (0.9-2); Albumin Level 3.6 gm/dl (3.4-5.0); BUN Creatinine Ratio 14.8 (10-20); Bilirubin,Total 0.3 mg/dl (0.2-1.0); Calcium 8.9 mg/dl (8.6-10.3); Creatinine Clr Calc Pharmacy 94.2 ml/min; Magnesium 1.6 mg/dl (1.7-2.4); Potassium 3.9 mmol/L (3.5-5.1); Total Protein 6.6 gm/dl (6.0-8.3)
--- NOTE | 2024-02-20 10:24 | XRay Report ---
XR chest 1V portable CLINICAL HISTORY: Chest pain, nonspecific COMPARISON STUDY: Chest CT April 21, 2018. Chest radiograph April 17, 2023. FINDINGS: There is no pneumothorax. There are suspected small bilateral pleural effusions. Hazy bibas ilar opacities are present. There is interstitial thickening. The heart is moderately enlarged. Right hilar prominence is noted. IMPRESSION: 1. Cardiomegaly with interstitial pulmonary edema. 2. Small bilateral pleural effusions with hazy bibasilar opacities. 3. Right hilar prominence, likely due to pulmonary vasculature. This can be assessed on follow-up exa ms. ACT 112: Negative or not required by law. Electronically signed by: Kashmir Davis M.D. 02/20/2024 10:22 AM
[2024-02-20 10:25] LABS: Partial Thromboplastin Ratio 0.9; Partial Thromboplastin Time 25 Seconds (21-31); Prothrombin Time 10.6 Seconds (9.0-12.0)
[2024-02-20] MEDS: MAGNESIUM SULFATE / D5W 1 GM/100 ML BAG IV STA (10:40)
--- NOTE | 2024-02-20 11:27 | History & Physical Report ---
Date of Service February 20, 2024 Assessment & Plan (1) Symptomatic anemia: (2) Elevated troponin: (3) Hypomagnesemia: Plan Lindaclif Reddy is a 73-year-old female with past medical history significant for dyslipidemia, hypothyroidism, type II diabetes mellitus, bilateral carotid artery stenosis, GERD without esophagitis, morbid obesity, history of cerebral infarction, depression, osteoarthrosis and HTN who presented to the ED on 02/20/2024 via EMS secondary to shortness of breath and chest pain. She received 324mg ASA en route to the ED. She was also placed on 2L via NC as she was feeling short of breath however she never became hypoxic. Her shortness of breath was greatly improved during our conversation in the ED. She was still endorsing 3 out of 10 dull, achy retrosternal chest pain but notes that this is also significantly improved since receiving the aspirin and being placed on supplemental oxygen. Initial laboratory workup revealed a Hgb of 6.3; FOBT was negative. Patient denies any melena, hematochezia or any other bleeding concerns. She does NOT take any blood thinners however she is on 81mg aspirin daily as she had a stroke approximately 4 years ago. Patient had a prior EGD done in July of 2018 which was grossly unremarkable, had a benign single gastric polyp removed. Her most recent colonoscopy in August of 2021 revealed 2 benign polyps, melanosis coli in the ascending/descending/sigmoid colon and sigmoid diverticulosis but was otherwise grossly unremarkable. No history of hemorrhoids. Symptomatic Anemia: History as per above and HPI. Hgb 6.3 on admission - set to receive 1U PRBCs. Will give 1 dose of IV Lasix following the transfusion as outlined below. Monitor H/H tonight. Will need additional 1U PRBCs if Hgb<7 on recheck. GI consulted 2/2 concern for possible GI source of bleeding. Liquid diet for now. Will start IV PPI BID. NPO at midnight for possible EGD/colonoscopy. Anemia workup ordered for the AM including peripheral smear. Avoid NSAIDs. Elevated Troponin, C/F Possible CHF: Initial troponin was elevated at 30, repeat troponin 44 - likely demand ischemia ISO symptomatic anemia as per above. CXR however revealed cardiomegaly with interstitial pulmonary edema in addition to small bilateral pleural effusions with hazy bibasilar opacities therefore there is concern for volume overload. BNP elevated at 395. Evidence of trace BLE on exam. S/p 20mg IV Lasix in the ED. Will obtain resting echocardiogram. Set to receive another 20mg IV Lasix s/p 1U PRBCs. Monitor I&Os, daily weights. Fluid restriction of 2L/day. Continue to trend troponin Q6H. Can consider cardiology evaluation based on echocardiogram results. Wean off O2 as tolerated. Hypomagnesemia: Mag 1.6 on presentation, repleted with IV Mag x 1 bag in the ED. Continue to monitor her electrolytes and manage PRN. DM Type II: Hold home metformin, SSI regimen while inpatient. BSG checks ACHS. Most recent Hgb A1c was 7.5% about 1 month ago per chart review. Other Chronic Medical Conditions: * HTN - BP was notably elevated at 206/93 on presentation however she had not yet taken her home antihypertensives therefore they were given in the ED - losartan 50mg and carvedilol 6.25mg. Her BP subsequently improved to 125/64. She can continue these medications as prescribed. Close BP monitoring on board. * Hold home diclofenac ISO anemia, famotidine ISO IV PPI. HLD - Can continue home ASA, statin. Depression/Hypothyroidism - Continue home meds for these specific conditions. DVT Prophylaxis: SCDs/TEDs ISO acute anemia as per above. Code Status: FULL CODE PCP: Cecilia Quarles DO Disposition: Admit to PCU/Telemetry Patient seen in collaboration with Dr. Aranda. Please see addendum. I spent a total of 65 minutes coordinating, documenting, and providing care for this patient excluding time spent in the performance of separately billed services. This included personally reviewing all current laboratories and imaging studies, medical reconciliation, outpatient chart review and discussion with specialists. This chart was completed in part utilizing Speech Voice Recognition Software. Grammatical errors, random word insertions, pronoun errors, and incomplete sentences are an occasional consequence of this system due to software limitations, ambient noise, and hardware issues. Any formal questions or concerns about the content, text, or information contained within the body of this dictation should be directly addressed to the provider for clarification. History of Present Illness Chief Complaint: SOB/Dyspnea, Chest Pain Primary Care Provider: DO Linda Doshi Maureen is a 73-year-old female with past medical history significant for dyslipidemia, hypothyroidism, type II diabetes mellitus, bilateral carotid artery stenosis, GERD without esophagitis, morbid obesity, history of cerebral infarction, depression, osteoarthrosis and HTN who presented to the ED on 02/20/2024 via EMS secondary to shortness of breath and chest pain. History obtained from patient, at bedside and associated chart review. Patient seen at bedside with Dr. Aranda. Patient noticed that she became extremely short of breath and developed sharp, centralized chest pain whilst walking up her stairs last night - mentions she has about 16 steps in total. Patient has been feeling progressively short of breath with some intermittent chest pain on exertion in the past 2 to 3 days however last night was the worst episode thus far. She reports that her symptoms, including her shortness of breath and chest pain, improve with rest. When the chest pain comes on with exertion it is typically sharp in nature, retrosternal and sometimes radiates through to her back. Patient mentions that she slept in her recliner all night with her head elevated secondary to indigestion she experienced whilst lying flat in bed initially last evening. She reports that she woke up this morning "gasping for air." She also tried ambulating up the stairs this morning which severely exacerbated her chest pain and worsened her breathing. These symptoms did improve however when she sat down to rest but they did not fully subside. EMS was therefore called by her due to these ongoing symptoms. She did receive 324mg aspirin en route to the ED per EMS. She was also placed on 2L via NC as she was feeling short of breath, however her oxygen saturation never dropped below 90%. Her shortness of breath was greatly improved during our conversation in the ED. She was still endorsing 3 out of 10 dull, achy retrosternal chest pain but notes that this is also significantly improved since receiving the aspirin and being placed on supplemental oxygen. Initial laboratory workup in the ED revealed an acute anemia with hemoglobin of 6.3; FOBT in the ED was negative. Patient denies any melena, hematochezia or any other bleeding concerns. She does NOT take any blood thinners however she is on 81mg aspirin daily as she had a stroke approximately 4 years ago. She denies any lightheadedness/dizziness or syncopal episodes. Patient had a prior EGD done in July of 2018 which was grossly unremarkable, had a benign single gastric polyp removed. Her most recent colonoscopy in August of 2021 revealed 2 benign polyps, melanosis coli in the ascending/descending/sigmoid colon and sigmoid diverticulosis but was otherwise grossly unremarkable. No history of hemorrhoids that she recalls. Initial laboratory workup was also notable for hypomagnesemia which was repleted via IV magnesium x 1 bag in the ED. Her blood pressure was also notably elevated at 206/93 on presentation however she had not yet taken her home antihypertensives therefore they were given in the ED - losartan 50mg and carvedilol 6.25mg. Her BP subsequently improved to 125/64. Initial troponin was elevated at 30, repeat troponin 44 - likely demand ischemia in the setting of acute anemia however will need to rule out ACS in setting of recent chest pain as per above. CXR revealed cardiomegaly with interstitial pulmonary edema in addition to small bilateral pleural effusions with hazy bibasilar opacities. Respiratory BioFire panel negative, initial infectious workup negative thus far. No smoking history, social alcohol use. Her father had mesothelioma and in 2020. Allergies Allergy/AdvReac Type Severity Reaction Status Date / Time Sulfa (Sulfonamide Allergy Unknown Swelling Verified 02/20/24 11:18 Antibiotics) codeine AdvReac Intermediate CONFUSION Verified 02/20/24 11:18 Home Medications Medication Instructions Recorded Confirmed Type bupropion HCl 150 mg tablet,12 hr 150 mg PO BID 11/25/17 02/20/24 History sustained-release cholecalciferol (vitamin D3) 50 2,000 unit PO QAM 11/25/17 02/20/24 History mcg (2,000 unit) capsule (Vitamin D3) levothyroxine 75 mcg tablet 75 mcg PO QAM 11/25/17 02/20/24 History buspirone 10 mg tablet 10 mg PO BID 04/20/18 02/20/24 History escitalopram oxalate 20 mg tablet 20 mg PO QAM 04/20/18 02/20/24 History (Lexapro) fluticasone propionate 50 2 spray intranasal QAM 04/20/18 02/20/24 History mcg/actuation nasal spray,suspension (Flonase Allergy Relief) meclizine 12.5 mg tablet 12.5 mg PO TID PRN Dizziness 04/20/18 02/20/24 History pantoprazole 40 mg tablet,delayed 40 mg PO QAM 03/04/19 02/20/24 History release carvedilol 6.25 mg tablet 6.25 mg PO BID 03/05/19 02/20/24 History losartan 50 mg tablet 50 mg PO QAM 03/05/19 02/20/24 History albuterol sulfate 90 mcg/actuation 2 puffs inhalation Q4H PRN 10/30/19 02/20/24 Rx aerosol inhaler shortness of breath or wheezing #8 grams aspirin 81 mg tablet,delayed 81 mg PO QAM 09/15/22 02/20/24 History release atorvastatin 80 mg tablet 80 mg PO QAM 09/15/22 02/20/24 History famotidine 20 mg tablet 20 mg PO BID 09/15/22 02/20/24 History metformin 500 mg tablet,extended 500 mg PO QAM 09/15/22 02/20/24 History release 24 hr tramadol 50 mg tablet 50 mg PO Q6H PRN pain #20 tabs 05/26/23 02/20/24 Rx diclofenac sodium 75 mg 75 mg PO BID PRN Pain 01/04/24 02/20/24 History tablet,delayed release prednisolone acetate 1 % eye 1 drp OPL QID 02/20/24 02/20/24 History drops,suspension Past Med/Surg History Problem List (Updated 02/20/24 @ 15:46 by Jazzmine Thomason PA-C) Hypomagnesemia Elevated troponin Symptomatic anemia Lateral pain of left hip Neuroforaminal stenosis of lumbar spine Lumbar facet joint syndrome Adjacent segment disease of lumbar spine with history of fusion procedure Trigger thumb, left thumb Triquetral fracture Scaphoid fracture Shoulder sprain Fracture of greater tuberosity of left humerus Greater trochanteric bursitis CVA (cerebral vascular accident) Discharge planning issues DVT prophylaxis Depression Hypothyroidism GERD (gastroesophageal reflux disease) Abnormal brain CT (Acute) Hypertension (Acute) Headache (Acute) Confusion (Acute) Chest pain Chest pain, precordial (Acute) Multiple fractures of ribs of right side (Acute) Fall (Acute) Medical History Depression Hypothyroidism GERD (gastroesophageal reflux disease) History of COVID-19 fall 2022- no hosp; resolved Diabetes History of CVA (cerebrovascular accident) ~2019- chest/back pressure and elevated BP, memory loss; no deficits, no neuro at this time, managed by PCP Seasonal allergies prn inh for this, not asthma or copd, rare use of rescue inhaler Hyperlipidemia Hypertension Surgical History History of tooth extraction Hx of thumb surgery Open left trigger thumb release History of esophagogastroduodenoscopy (EGD) Hx of colonoscopy Status post lumbar surgery L4, L5, S1 Family History Mother Hypertension Stroke Alzheimer disease Father Lung cancer Brother Coronary heart disease Social History Smoking Status: Never smoker Second Hand Exposure: Yes ( smokes); Do You Dip or Chew Tobacco: No; Hx Alcohol Use: Yes Alcohol type: wine Hx Substance Use: No Preferred Language: Telugu Communication Ability: Effective Visual Impairment: No Limitations Hearing Ability: Normal Trench Pipe Layer Required: No Beliefs That Will Affect Care: None marital status: Current Living Situation: Spouse Current Living Situation Comment: Lives with spouse current occupational status: employed 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 Physical Exam Physical Exam: Please refer to Dr. Aranda's addendum for physical examination findings. Results & Data Results & Data Vital Signs (Past 12 Hours) Vital Signs Temp Pulse Pulse Resp BP BP Pulse Ox 02/20/24 11:00 70 19 156/69 H 98 02/20/24 10:33 74 15 97 02/20/24 10:30 157/83 H 02/20/24 10:30 157/83 H 02/20/24 10:30 157/83 H 02/20/24 10:27 79 15 96 02/20/24 10:03 72 15 97 02/20/24 10:00 158/85 H 02/20/24 09:54 72 16 97 02/20/24 09:51 72 18 97 02/20/24 09:48 71 22 163/113 H 97 02/20/24 09:46 163/113 H 02/20/24 09:34 96 02/20/24 09:27 36.9 C 84 21 /93 H 91 02/20/24 09:24 83 02/20/24 09:22 /93 H 02/20/24 09:22 206/93 H O2 Del Method O2 Flow Rate 02/20/24 11:00 Nasal Cannula 2 02/20/24 10:33 02/20/24 10:30 02/20/24 10:30 02/20/24 10:30 02/20/24 10:27 02/20/24 10:03 02/20/24 10:00 02/20/24 09:54 02/20/24 09:51 02/20/24 09:48 Nasal Cannula 2 02/20/24 09:46 02/20/24 09:34 Nasal Cannula 2 02/20/24 09:27 Room Air 02/20/24 09:24 02/20/24 09:22 02/20/24 09:22 Laboratory Results Short CBC 02/20/24 Range/Units 09:30 WBC 5.27 (4.8-10.8) K/ul Hgb 6.3 L* (12.0-16.0) g/dl Hct 21.1 L (37.0-47.0) % Plt Count 317 (130-400) K/uL BMP 02/20/24 09:30 Sodium 138 Potassium 3.9 Chloride 105 Carbon Dioxide 22 BUN 9 Creatinine 0.61 Glucose 143 H Calcium 8.9 Liver Function 02/20/24 Range/Units 09:30 Total Bilirubin 0.3 (0.2-1.0) mg/dl AST 30 (13-39) U/L ALT 35 (7-52) U/L Alkaline Phosphatase 80 (34-104) U/L Albumin 3.6 (3.4-5.0) gm/dl Diagnostic Findings Chest X-Ray 02/20/24 09:34 XR chest 1V portable CLINICAL HISTORY: Chest pain, nonspecific COMPARISON STUDY: Chest CT April 21, 2018. Chest radiograph April 17, 2023. FINDINGS: There is no pneumothorax. There are suspected small bilateral pleural effusions. Hazy bibasilar opacities are present. There is interstitial thickening. The heart is moderately enlarged. Right hilar prominence is noted. IMPRESSION: 1. Cardiomegaly with interstitial pulmonary edema. 2. Small bilateral pleural effusions with hazy bibasilar opacities. 3. Right hilar prominence, likely due to pulmonary vasculature. This can be assessed on follow-up exams. ACT 112: Negative or not required by law. Electronically signed by: Kashmir Davis M.D. 02/20/2024 10:22 AM Medications Administered Discontinued Medications Carvedilol (Carvedilol 6.25 Mg Tab) 6.25 mg PO NOW STA Stop: 02/20/24 09:35 Last Admin: 02/20/24 10:03 Dose: 6.25 mg Documented By: HS Furosemide (Furosemide Inj 20 Mg/2 Ml Vial) 20 mg IV ONE ONE Stop: 02/20/24 09:55 Last Admin: 02/20/24 10:04 Dose: 20 mg Documented By: HS Magnesium Sulfate/Dextrose (Magnesium Sulfate / D5w) 1 gm in 100 mls @ 100 mls/hr IV NOW STA Stop: 02/20/24 11:24 Last Admin: 02/20/24 10:40 Dose: 100 mls/hr Documented By: HS Losartan Potassium (Losartan Potassium 50 Mg Tab) 50 mg PO NOW STA Stop: 02/20/24 09:35 Last Admin: 02/20/24 10:04 Dose: 50 mg Documented By: HS Nitroglycerin (Nitroglycerin 2% Ointment 30gm Tube) 1 inch EXT NOW STA Stop: 02/20/24 09:35 Last Admin: 02/20/24 09:40 Dose: 1 inch Documented By: HS Code Status & VTE Plan Code Status FULL CODE VTE Prophylaxis Plan VTE Prophylaxis will be ordered: Yes Supervising Physician Co-Signing Physician Notes Patient is a 73-year-old female with history of CVA with no residual deficits, depression, hypothyroidism, GERD, hypertension, hyperlipidemia, diabetes mellitus [id number], polyps and other medical problems presents with history of worsening dyspnea on exertion and some chest pain on exertion since 3 days duration. Symptoms significantly worsened yesterday while she was trying to take stairs. She describes chest pain to be sharp, retrosternal, apparently radiates to back, improves with rest. She also got aspirin en route to the hospital and after placing oxygen while in ED, chest pain much improved. She denies any diaphoresis, nausea, dizziness, presyncopal or syncopal episode. She also denies any melena, bleeding issues currently. Fecal occult in ED was negative. She takes aspirin for her prior CVA. She admits to have polyps re moved 1 year ago. She also had endoscopy previously which was normal per patient. She has been using diclofenac as needed for back pain. She denies any orthopnea, but reports an episode of PND 2 days ago. Please review HPI for complete details of presentation. I personally reviewed blood work and imaging studies. Blood work showed hemoglobin 6.3, hematocrit 21.1 magnesium 1.6, troponin 30.0, BNP 385. Urinalysis within normal limits. BioFire pending. Chest x-ray showed cardiomegaly with interstitial pulmonary edema, small bilateral pleural effusions with hazy bibasilar opacities. EKG showed normal sinus rhythm, nonspecific T wave abnormality in lateral leads, QTc 442. Physical Exam: Vitals signs as noted above General Appearance: Obese, no apparent distress Head: normocephalic, Atraumatic Eyes: normal inspection, EOMI Neck: supple, Trachea midline Respiratory/Chest: Decreased breath sounds, CTA, No accessory muscle use Cardiovascular: S1, S2, No murmur Abdomen/GI:Soft, Non tender, Bowel sounds present Extremities/Musculoskeletal:normal inspection, trace edema Neurologic/Psych:AAOX3, grossly no focal neurological deficits Skin: normal color, warm Symptomatic anemia Suspected GI bleed DD: Polyps, diclofenac use Troponin elevation/Chest Pain likely demand ischemia secondary to above BNP elevated, concern for volume overload on chest x-ray Hypomagnesemia Fecal occult in ED negative Hemoglobin 6.3, hematocrit 21.1 Hold NSAIDs Given no active bleeding, plan to continue aspirin given history of CVA Monitor H&H and transfuse 1 unit PRBCs Will give 1 dose of IV Lasix after blood transfusion Will check resting echo, monitor I's and O's, daily weight and placed on fluid restriction GI consulted Trend troponins, will consider cardiology evaluation based on echo results Replace magnesium Monitor volume status closely Liquid diet for now Avoid anticoagulation N.p.o. after midnight for possible EGD/colonoscopy Anemia workup ordered Will also start on PPI BID Further management based on pending results I personally interviewed and examined at bedside. Patient's care is coordinated with Jazzmine Thomason PA-C. I have reviewed the advanced practitioner's do cumentation, and I agree with plan of care. Please refer to the documentation above for details of patient's presentation and for discussion of other issues. I spent a total [id number] coordinating, documenting, and providing care for this patient excluding time spent in the performance of separately billed services.
[2024-02-20 11:46] LABS: Appearance Urine Clear (Clear); Bacteria Urine Automated None Seen (None Seen); Bilirubin Urine Negative (Negative); Blood Urine Negative (Negative); Cast Urine Automated 0-2 /lpf (0-2); Color Urine Yellow; Epithelial Cell Urine Auto 0-2 /hpf (0-2); Glucose Urine UA Negative (Negative); Ketones Urine Negative (Negative); Leukocyte Esterase Urine 2+ (Negative); Nitrite Urine Negative (Negative); Protein Urine Negative (Negative); RBC Urine Automated 0-2 /hpf (0-2); Specific Gravity Urine 1.005 (1.000-1.030); Urobilinogen Urine Negative (Negative); WBC Urine Automated 0-5 /hpf (0-5); pH Urine 7.5 (4.5-7.5)
[2024-02-20] MEDS ORDERED: SODIUM CHLORIDE 0.9% 100 ML IV PRN (12:24)
[2024-02-20 12:35] LABS: Adenovirus PCR Not Detected (NotDetected); Bordetella parapertussis PCR Not Detected (NotDetected); Bordetella pertussis PCR Not Detected (NotDetected); Chlamydia pneumoniae PCR Not Detected (NotDetected); Coronavirus 229E PCR Not Detected (NotDetected); Coronavirus CoV-2 (COVID19)PCR Not Detected (NotDetected); Coronavirus HKU1 PCR Not Detected (NotDetected); Coronavirus NL63 PCR Not Detected (NotDetected); Coronavirus OC43PCR Not Detected (NotDetected); Human Metapneumovirus PCR Not Detected (NotDetected); Influenza A PCR Not Detected (NotDetected); Influenza B PCR Not Detected (NotDetected); Mycoplasma pneumoniae PCR Not Detected (NotDetected); Parainfluenza Virus 1 PCR Not Detected (NotDetected); Parainfluenza Virus 2 PCR Not Detected (NotDetected); Parainfluenza Virus 3 PCR Not Detected (NotDetected); Parainfluenza Virus 4 PCR Not Detected (NotDetected); Respiratory Syncytial VirusPCR Not Detected (NotDetected); Rhinovirus/Enterovirus PCR Not Detected (NotDetected)
[2024-02-20] MEDS: SODIUM CHLORIDE 0.9% 100 ML IV PRN (12:51)
[2024-02-20] MEDS ORDERED: POLYETHYLENE (MIRALAX) 17 GM PACK PO PRN (14:30)
[2024-02-20] MEDS ORDERED: HYDROmorphone INJ 0.5 MG/0.5 ML SYR IV ONE (14:30)
[2024-02-20] MEDS ORDERED: GLUCOSE 10 TAB/TUBE PO PRN (14:30)
[2024-02-20] MEDS ORDERED: GLUCAGON FOR INJ 1 MG VIAL SQ PRN (14:30)
[2024-02-20] MEDS ORDERED: CARBOHYDRATES FOR HYPOGLYCEMIA PO PRN (14:30)
[2024-02-20] MEDS ORDERED: ALBUTEROL HFA 8 GM INHALER INH PRN (14:30)
[2024-02-20] MEDS ORDERED: DEXTROSE 50% 50 ML SYRINGE IV PRN (14:30)
[2024-02-20] MEDS ORDERED: ACETAMINOPHEN 325 MG TAB PO PRN (14:30)
[2024-02-20] MEDS ORDERED: ONDANSETRON INJ 2 MG/ML 2 ML VIAL IV PRN (14:30)
[2024-02-20] MEDS ORDERED: NITROGLYCERIN SL 0.4 MG/TAB TAB SL PRN (14:30)
[2024-02-20] MEDS ORDERED: MAGNESIUM HYDROXIDE SUSP 30 ML UDC PO PRN (14:30)
[2024-02-20] MEDS ORDERED: GLUCOSE 40% GEL 15 GM TUBE PO PRN (14:30)
--- NOTE | 2024-02-20 15:37 | Gastrointestinal Consultation ---
Date of Consultation February 20, 2024 Assessment & Plan (1) Symptomatic anemia: 73-year-old female with past medical history significant for dyslipidemia, hypothyroidism, type II diabetes mellitus, bilateral carotid artery stenosis, GERD without esophagitis, morbid obesity, history of cerebral infarction, depression, osteoarthrosis and HTN who presented to the ED on 02/20/2024 via EMS secondary to shortness of breath and chest pain with a hemoglobin of 6.3. She denies any active bleeding or dark stools or melena. She has previously had a colonoscopy in 2021 which showed diverticulosis and 2 polyps. At this point I would treat her with blood and check iron studies. She will need p.o. iron outpatient. She has had a troponin leak with a mildly elevated BNP. She should get a cardiology consult and workup for this. If this is all demand ischemia, GI would like to do a push enteroscopy this admission to better evaluate for peptic ulcer disease gastritis esophagitis or AVMs. Her colonoscopy is pretty recent so if the enteroscopy is negative, then we will proceed with an outpatient capsule endoscopy. (2) GERD (gastroesophageal reflux disease): ppi qd. History of Present Illness Reason for Consultation: Symptomatic anemia to 6.3 Requesting Physician: Rosi Attending Physician: Sheldon Aranda MD History of Present Illness 73-year-old female with past medical history significant for dyslipidemia, hypothyroidism, type II diabetes mellitus, bilateral carotid artery stenosis, GERD without esophagitis, morbid obesity, history of cerebral infarction, depression, osteoarthrosis and HTN who presented to the ED on 02/20/2024 via EMS secondary to shortness of breath and chest pain in setting of Hgb of 6.3 patient reports no bleeding melena or dark stools. She has been able to tolerate her diet without any abdominal pain. She is currently on a baby aspirin and reports occasional Advil for headaches. She takes this approximately once per month. Workup has included an endoscopy which was normal in 1998 and a colonoscopy [facility] showed diverticulosis with 2 polyps removed. This was done in 2021. Allergies Allergy/AdvReac Type Severity Reaction Status Date / Time Sulfa (Sulfonamide Allergy Unknown Swelling Verified 02/20/24 11:18 Antibiotics) codeine AdvReac Intermediate CONFUSION Verified 02/20/24 11:18 Home Medications Medication Instructions Recorded Confirmed Type bupropion HCl 150 mg tablet,12 hr 150 mg PO BID 11/25/17 02/20/24 History sustained-release cholecalciferol (vitamin D3) 50 2,000 unit PO QAM 11/25/17 02/20/24 History mcg (2,000 unit) capsule (Vitamin D3) levothyroxine 75 mcg tablet 75 mcg PO QAM 11/25/17 02/20/24 History buspirone 10 mg tablet 10 mg PO BID 04/20/18 02/20/24 History escitalopram oxalate 20 mg tablet 20 mg PO QAM 04/20/18 02/20/24 History (Lexapro) fluticasone propionate 50 2 spray intranasal QAM 04/20/18 02/20/24 History mcg/actuation nasal spray,suspension (Flonase Allergy Relief) meclizine 12.5 mg tablet 12.5 mg PO TID PRN Dizziness 04/20/18 02/20/24 History pantoprazole 40 mg tablet,delayed 40 mg PO QAM 03/04/19 02/20/24 History release carvedilol 6.25 mg tablet 6.25 mg PO BID 03/05/19 02/20/24 History losartan 50 mg tablet 50 mg PO QAM 03/05/19 02/20/24 History albuterol sulfate 90 mcg/actuation 2 puffs inhalation Q4H PRN 10/30/19 02/20/24 Rx aerosol inhaler shortness of breath or wheezing #8 grams aspirin 81 mg tablet,delayed 81 mg PO QAM 09/15/22 02/20/24 History release atorvastatin 80 mg tablet 80 mg PO QAM 09/15/22 02/20/24 History famotidine 20 mg tablet 20 mg PO BID 09/15/22 02/20/24 History metformin 500 mg tablet,extended 500 mg PO QAM 09/15/22 02/20/24 History release 24 hr tramadol 50 mg tablet 50 mg PO Q6H PRN pain #20 tabs 05/26/23 02/20/24 Rx diclofenac sodium 75 mg 75 mg PO BID PRN Pain 01/04/24 02/20/24 History tablet,delayed release prednisolone acetate 1 % eye 1 drp OPL QID 02/20/24 02/20/24 History drops,suspension Patient History Medical History Depression Hypothyroidism GERD (gastroesophageal reflux disease) History of COVID-19 fall 2022- no hosp; resolved Diabetes History of CVA (cerebrovascular accident) ~2019- chest/back pressure and elevated BP, memory loss; no deficits, no neuro at this time, managed by PCP Seasonal allergies prn inh for this, not asthma or copd, rare use of rescue inhaler Hyperlipidemia Hypertension Surgical History History of tooth extraction Hx of thumb surgery Open left trigger thumb release History of esophagogastroduodenoscopy (EGD) Hx of colonoscopy Status post lumbar surgery L4, L5, S1 Family History Mother Hypertension Stroke Alzheimer disease Father Lung cancer Brother Coronary heart disease Social History Smoking Status: Never smoker Second Hand Exposure: Yes ( smokes); Do You Dip or Chew Tobacco: No; Hx Alcohol Use: Yes Alcohol type: wine Hx Substance Use: No Preferred Language: Kiswahili Communication Ability: Effective Visual Impairment: No Limitations Hearing Ability: Normal [employer] 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[employer]r Required: No Beliefs That Will Affect Care: None marital status: Current Living Situation: Spouse Current Living Situation Comment: Lives with spouse current occupational status: employed 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 Other Information That Helps Us Care for You: No Feels Safe at Home: Yes Safety Concerns: Feels Safe At This Time Assistive Devices: Denture - Upper and Glasses Review of Systems Review of Systems: All systems reviewed & are unremarkable except as noted in HPI & below Physical Exam Physical Exam: Physical Exam: General: Well nourished and well developed in NAD HEENT: EOMI, PERRL Neck: trachea midline, no lad Lungs: CTA b, bilateral bs present Heart: RRR, no M and no edema Abd: soft, NT/ND, NABS Musculoskeletal: no c/c/e, normal strength B Neuro: CN2-12 intact, normal gait, normal strength Psych: normal affect and mood, euthymic. Results & Data Vital Signs (Past 12 Hours) Vital Signs Temp Pulse Pulse Resp BP BP Pulse Ox 02/20/24 14:37 02/20/24 14:30 02/20/24 14:26 36.8 C 67 18 146/69 H 99 02/20/24 14:00 36.9 C 67 15 125/64 96 02/20/24 13:29 37.0 C 68 14 111/54 L 96 02/20/24 13:14 70 02/20/24 13:14 37.2 C 70 18 126/64 96 02/20/24 12:58 37.1 C 68 15 116/58 L 97 02/20/24 12:39 70 15 120/73 96 02/20/24 11:00 70 19 156/69 H 98 02/20/24 10:33 74 15 97 02/20/24 10:30 157/83 H 02/20/24 10:30 157/83 H 02/20/24 10:30 157/83 H 02/20/24 10:27 79 15 96 02/20/24 10:03 72 15 97 02/20/24 10:00 158/85 H 02/20/24 09:54 72 16 97 02/20/24 09:51 72 18 97 02/20/24 09:48 71 22 163/113 H 97 02/20/24 09:46 163/113 H 02/20/24 09:34 96 02/20/24 09:27 36.9 C 84 21 206/93 H 91 02/20/24 09:24 83 02/20/24 09:22 206/93 H 02/20/24 09:22 206/93 H Pulse Ox O2 Del Method O2 Del Method O2 Flow Rate O2 Flow Rate 02/20/24 14:37 Nasal Cannula 1 02/20/24 14:30 96 Nasal Cannula 1 02/20/24 14:26 Room Air 02/20/24 14:00 1 02/20/24 13:29 1 02/20/24 13:14 02/20/24 13:14 1 02/20/24 12:58 02/20/24 12:39 Nasal Cannula 1 02/20/24 11:00 Nasal Cannula 2 02/20/24 10:33 02/20/24 10:30 02/20/24 10:30 02/20/24 10:30 02/20/24 10:27 02/20/24 10:03 02/20/24 10:00 02/20/24 09:54 02/20/24 09:51 02/20/24 09:48 Nasal Cannula 2 02/20/24 09:46 02/20/24 09:34 Nasal Cannula 2 02/20/24 09:27 Room Air 02/20/24 09:24 02/20/24 09:22 02/20/24 09:22 PG Care Time/CCT Total # of Minutes Spent Total Time Spent with Patient: Total time spent is greater than 50% in coordination of care (as documented) at patient's floor/unit and/or counseling patient: Coding Level of Care Code 08925 INT INP/OBS CARE 2/55MIN Diagnoses Symptomatic anemia D64.9 GERD (gastroesophageal reflux disease) K21.9
[2024-02-20] MEDS: PANTOprazole 40 MG/10 ML SYR IV SCH (17:16)
[2024-02-20] MEDS: prednisoLONE acetate 1% OP SUSP 5 ML BTL OPL SCH (17:27)
[2024-02-20] MEDS: carvediloL 6.25 MG TAB PO SCH (17:44)
[2024-02-20] MEDS: INSULIN ASPART PER UNIT CHARGE SC SCH (17:49)
[2024-02-20 19:12] LABS: Hematocrit (blood only) 27.1 % (37.0-47.0); Hemoglobin 8.6 g/dl (12.0-16.0)
[2024-02-20] MEDS: busPIRone 5 MG TAB PO SCH (21:43)
[2024-02-20] MEDS: buPROPion SR 150 MG TABCR PO SCH (21:44)
[2024-02-20 23:03] LABS: Hematocrit (blood only) 26.7 % (37.0-47.0); Hemoglobin 8.4 g/dl (12.0-16.0)
[2024-02-21] MEDS: LEVOTHYROXINE SODIUM 75 MCG TABLET PO SCH (06:23)
[2024-02-21 07:11] LABS: Hematocrit (blood only) 27.2 % (37.0-47.0); Hemoglobin 8.5 g/dl (12.0-16.0); Mean Corpuscular Hemoglobin 26.1 pg (25.0-34.0); Mean Corpuscular Hgb Conc 31.3 g/dL (32.0-36.0); Mean Corpuscular Volume 83.4 fL (80.0-100.0); Mean Platelet Volume 10.1 fL (9.4-12.4); Platelet Count 318 K/uL (130-400); RDW Coefficient of Variation 15.2 % (11.5-14.5); RDW Standard Deviation 46.6 fL (36.4-46.3); Red Blood Count 3.26 M/uL (4.20-5.40); White Blood Count 5.12 K/ul (4.8-10.8)
[2024-02-21 07:34] LABS: BUN Creatinine Ratio 13.8 (10-20); Calcium 8.8 mg/dl (8.6-10.3); Creatinine Clr Calc Pharmacy 86.7 ml/min; Magnesium 1.8 mg/dl (1.7-2.4); Phosphorus 3.6 mg/dl (2.5-4.9); Potassium 3.9 mmol/L (3.5-5.1)
[2024-02-21 07:49] LABS: Folate (Folic Acid),Ser orPlas 9.62 ng/ml (>5.38)
[2024-02-21 07:52] LABS: Ferritin 9.1 ng/ml (8-388)
[2024-02-21] MEDS: ESCITALOPRAM OXALATE 20 MG TAB PO SCH (07:57)
[2024-02-21] MEDS: ATORVASTATIN 40 MG TAB PO SCH (07:57)
[2024-02-21] MEDS: LOSARTAN POTASSIUM 50 MG TAB PO SCH (07:57)
[2024-02-21] MEDS: ASPIRIN 81 MG ECTAB PO SCH (07:58)
[2024-02-21] MEDS: FLUTICASONE PROPIONATE NA SPR 16 GM BTL SCH (07:59)
--- NOTE | 2024-02-21 09:39 | Hospitalist Progress Note ---
Date of Service February 21, 2024 Assessment & Plan (1) Symptomatic anemia: Plan: This is likely due to chronic GI blood loss, patient is hemodynamically stable, initial hemoglobin was 6.3 which after transfusion improved to 8.5. Continue with Protonix infusion 40 mg twice daily, patient will be kept n.p.o. to see if today she will be taken for any intervention. Otherwise we will resume home medications. Awaiting cardiology consult for clearance for push enteroscopy. (2) Elevated troponin: Plan: This is likely due to demand ischemia considering her LVH and degree of anemia, echocardiogram did not show any LV wall motion abnormality, cardiology consultation is pending to clear the patient for the procedure. (3) Hypomagnesemia: Plan: Magnesium was 1.6 on admission which after replacement improved to 1.8 (4) Hypertension: Plan: Blood pressure is relatively stable, continue with home regimen of losartan 50 mg daily, carvedilol 6.25 mg twice daily. (5) Hypothyroidism (acquired): Plan: Continue with Synthroid 75 mcg daily. (6) Depression: Plan: Continue with buspirone and escitalopram. Plan Continue with current plan, keep n.p.o. until patient is cleared by cardiology to see if she will be qualified for the procedure today, monitor H&H. Admission and Anticipated Discharge Date Admission Date: February 20, 2024 Subjective Patient is a very pleasant 73-year-old female with history of diabetes mellitus type 2, hyperlipidemia, hypothyroidism, hypertension, Who came to the hospital because of weakness and shortness of breath, she was found to have a hemoglobin of 6.3 believed to be secondary to chronic GI loss, patient was transfused with hemoglobin improved to 8.5, patient was seen by gastroenterology and plan for push enteroscopy. Patient told me that she had unremarkable EGD in 2019 and also colonoscopy on 2021 showing some polyps. I could not get any robust information confirming the presence of blood such as history of melena in the context of her presentation, that is very likely. We also patient does take NSAIDs and tramadol and low-dose aspirin chronically. Patient was seen and examined, clinically stable, Patient did have some troponin leak likely because of extreme anemia and demand ischemia, she had an echocardiogram yesterday showing EF of 65 to 70% with concentric LVH, this is more likely due to demand ischemia although cardiology consultation is pending to cleared patient for procedure. Physical Exam Physical Exam: VITALS: Reviewed. WEIGHT/BMI reviewed. GEN: Healthy appearing, well-developed, NAD. LUNGS: CTAB, no w/r/c. ABD: Soft, NT/ND, NBS, no masses or organomegaly. : N/A SKIN: Warm, well perfused. No skin rashes or abnormal lesions. Results & Data Results & Data Vital Signs (Past 12 Hours) Vital Signs Temp Pulse Pulse Resp BP Pulse Ox O2 Del Method 02/21/24 08:57 66 02/21/24 07:40 37.2 C 70 18 159/85 H 92 Room Air 02/21/24 03:48 37.0 C 69 18 156/83 H 96 Room Air 02/20/24 23:00 63 02/20/24 22:39 37.0 C 60 18 116/64 94 Room Air Laboratory Results Laboratory Results - last 24 hr 02/20/24 02/20/24 02/20/24 09:30 10:17 11:24 WBC 5.27 RBC 2.55 L Hgb 6.3 L* Hct 21.1 L MCV 82.7 MCH 24.7 L MCHC 29.9 L RDW Std Deviation 46.9 H RDW Coeff of Clarita 15.6 H Plt Count 317 MPV 9.9 Immature Gran % (Auto) 0.2 Neut % (Auto) 51.6 Lymph % (Auto) 39.3 [place] % (Auto) 6.6 Eos % (Auto) 1.9 Baso % (Auto) 0.4 Reticulocyte % (Auto) Neut # (Auto) 2.72 Lymph # (Auto) 2.07 [place] # (Auto) 0.35 Eos # (Auto) 0.10 Baso # (Auto) 0.02 Reticulocyte # Immature Gran # (Auto) 0.01 Hypochromasia Present Peripher Smr Path Cons PT 10.6 INR 1.0 APTT 25 PTT Ratio 0.9 Sodium 138 Potassium 3.9 Chloride 105 Carbon Dioxide 22 Anion Gap 11 BUN 9 Creatinine 0.61 Est Cr Clr Drug Dosing 94.2 eGFR 95.52 BUN/Creatinine Ratio 14.8 Glucose 143 H POC Glucose Calcium 8.9 Phosphorus Magnesium 1.6 L Iron TIBC Transferrin Transferrin % Sat Ferritin Total Bilirubin 0.3 AST 30 ALT 35 Alkaline Phosphatase 80 Troponin I High Sens 30.0 H B-Natriuretic Peptide 395 H Total Protein 6.6 Albumin 3.6 Globulin 3.0 Albumin/Globulin Ratio 1.2 Lipase 26 Vitamin B12 Folate Procalcitonin Urine Color Yellow Urine Appearance Clear Urine pH 7.5 Ur Specific [place] 1.005 Urine Protein Negative Urine Glucose (UA) Negative Urine Ketones Negative Urine Blood Negative Urine Nitrite Negative Urine Bilirubin Negative Urine Urobilinogen Negative Ur Leukocyte Esterase 2+ H Urine WBC (Auto) 0-5 Urine RBC (Auto) 0-2 U Hyaline Cast (Auto) 0-2 U Epithel Cells (Auto) 0-2 Urine Bacteria (Auto) None Seen Adenovirus (PCR) Not Detected B. pertussis DNA (PCR) Not Detected B.parapertussis DNA PCR Not Detected C. pneumoniae DNA (PCR) Not Detected Coronavirus OC43 (PCR) Not Detected Coronavirus HKU1 (PCR) Not Detected Coronavirus 229E (PCR) Not Detected SARS-CoV-2 (PCR) Not Detected Coronavirus NL63 (PCR) Not Detected Human Metapneumovir PCR Not Detected Influenza Type A (PCR) Not Detected Influenza Type B (PCR) Not Detected M. pneumoniae (PCR) Not Detected Parainfluenza 1 (PCR) Not Detected Parainfluenza 2 (PCR) Not Detected Parainfluenza 3 (PCR) Not Detected Parainfluenza 4 (PCR) Not Detected RSV (PCR) Not Detected Entero/Rhino (PCR) Not Detected Blood Type A Positive Antibody Screen NEGATIVE Crossmatch See Detail 02/20/24 02/20/24 02/20/24 12:46 17:42 18:50 WBC RBC Hgb 8.6 L Hct 27.1 L MCV MCH MCHC RDW Std Deviation RDW Coeff of Clarita Plt Count MPV Immature Gran % (Auto) Neut % (Auto) Lymph % (Auto) [place] % (Auto) Eos % (Auto) Baso % (Auto) Reticulocyte % (Auto) Neut # (Auto) Lymph # (Auto) [place] # (Auto) Eos # (Auto) Baso # (Auto) Reticulocyte # Immature Gran # (Auto) Hypochromasia Peripher Smr Path Cons PT INR APTT PTT Ratio Sodium Potassium Chloride Carbon Dioxide Anion Gap BUN Creatinine Est Cr Clr Drug Dosing eGFR BUN/Creatinine Ratio Glucose POC Glucose 193 H Calcium Phosphorus Magnesium Iron TIBC Transferrin Transferrin % Sat Ferritin Total Bilirubin AST ALT Alkaline Phosphatase Troponin I High Sens 44.0 H D 37.1 H B-Natriuretic Peptide Total Protein Albumin Globulin Albumin/Globulin Ratio Lipase Vitamin B12 Folate Procalcitonin 0.07 Urine Color Urine Appearance Urine pH Ur Specific [place] Urine Protein Urine Glucose (UA) Urine Ketones Urine Blood Urine Nitrite Urine Bilirubin Urine Urobilinogen Ur Leukocyte Esterase Urine WBC (Auto) Urine RBC (Auto) U Hyaline Cast (Auto) U Epithel Cells (Auto) Urine Bacteria (Auto) Adenovirus (PCR) B. pertussis DNA (PCR) B.parapertussis DNA PCR C. pneumoniae DNA (PCR) Coronavirus OC43 (PCR) Coronavirus HKU1 (PCR) Coronavirus 229E (PCR) SARS-CoV-2 (PCR) Coronavirus NL63 (PCR) Human Metapneumovir PCR Influenza Type A (PCR) Influenza Type B (PCR) M. pneumoniae (PCR) Parainfluenza 1 (PCR) Parainfluenza 2 (PCR) Parainfluenza 3 (PCR) Parainfluenza 4 (PCR) RSV (PCR) Entero/Rhino (PCR) Blood Type Antibody Screen Crossmatch 02/20/24 02/20/24 02/21/24 20:28 22:39 06:01 WBC 5.12 RBC 3.26 L Hgb 8.4 L 8.5 L Hct 26.7 L 27.2 L MCV 83.4 MCH 26.1 MCHC 31.3 L RDW Std Deviation 46.6 H RDW Coeff of Clarita 15.2 H Plt Count 318 MPV 10.1 Immature Gran % (Auto) Neut % (Auto) Lymph % (Auto) [place] % (Auto) Eos % (Auto) Baso % (Auto) Reticulocyte % (Auto) 2.50 H Neut # (Auto) Lymph # (Auto) [place] # (Auto) Eos # (Auto) Baso # (Auto) Reticulocyte # 0.080 Immature Gran # (Auto) Hypochromasia Peripher Smr Path Cons PT INR APTT PTT Ratio Sodium 138 Potassium 3.9 Chloride 104 Carbon Dioxide 27 Anion Gap 7 BUN 9 Creatinine 0.65 Est Cr Clr Drug Dosing 86.7 eGFR 94.07 BUN/Creatinine Ratio 13.8 Glucose 144 H POC Glucose 142 H Calcium 8.8 Phosphorus 3.6 Magnesium 1.8 Iron 32 L TIBC 449 Transferrin 321 Transferrin % Sat 7 L Ferritin 9.1 Total Bilirubin AST ALT Alkaline Phosphatase Troponin I High Sens 34.2 H B-Natriuretic Peptide Total Protein Albumin Globulin Albumin/Globulin Ratio Lipase Vitamin B12 241 Folate 9.62 Procalcitonin Urine Color Urine Appearance Urine pH Ur Specific [place] Urine Protein Urine Glucose (UA) Urine Ketones Urine Blood Urine Nitrite Urine Bilirubin Urine Urobilinogen Ur Leukocyte Esterase Urine WBC (Auto) Urine RBC (Auto) U Hyaline Cast (Auto) U Epithel Cells (Auto) Urine Bacteria (Auto) Adenovirus (PCR) B. pertussis DNA (PCR) B.parapertussis DNA PCR C. pneumoniae DNA (PCR) Coronavirus OC43 (PCR) Coronavirus HKU1 (PCR) Coronavirus 229E (PCR) SARS-CoV-2 (PCR) Coronavirus NL63 (PCR) Human Metapneumovir PCR Influenza Type A (PCR) Influenza Type B (PCR) M. pneumoniae (PCR) Parainfluenza 1 (PCR) Parainfluenza 2 (PCR) Parainfluenza 3 (PCR) Parainfluenza 4 (PCR) RSV (PCR) Entero/Rhino (PCR) Blood Type Antibody Screen Crossmatch 02/21/24 02/21/24 06:24 07:06 WBC RBC Hgb Hct MCV MCH MCHC RDW Std Deviation RDW Coeff of Clarita Plt Count MPV Immature Gran % (Auto) Neut % (Auto) Lymph % (Auto) [place] % (Auto) Eos % (Auto) Baso % (Auto) Reticulocyte % (Auto) Neut # (Auto) Lymph # (Auto) [place] # (Auto) Eos # (Auto) Baso # (Auto) Reticulocyte # Immature Gran # (Auto) Hypochromasia Peripher Smr Path Cons PT INR APTT PTT Ratio Sodium Potassium Chloride Carbon Dioxide Anion Gap BUN Creatinine Est Cr Clr Drug Dosing eGFR BUN/Creatinine Ratio Glucose POC Glucose 158 H 160 H Calcium Phosphorus Magnesium Iron TIBC Transferrin Transferrin % Sat Ferritin Total Bilirubin AST ALT Alkaline Phosphatase Troponin I High Sens B-Natriuretic Peptide Total Protein Albumin Globulin Albumin/Globulin Ratio Lipase Vitamin B12 Folate Procalcitonin Urine Color Urine Appearance Urine pH Ur Specific [place] Urine Protein Urine Glucose (UA) Urine Ketones Urine Blood Urine Nitrite Urine Bilirubin Urine Urobilinogen Ur Leukocyte Esterase Urine WBC (Auto) Urine RBC (Auto) U Hyaline Cast (Auto) U Epithel Cells (Auto) Urine Bacteria (Auto) Adenovirus (PCR) B. pertussis DNA (PCR) B.parapertussis DNA PCR C. pneumoniae DNA (PCR) Coronavirus OC43 (PCR) Coronavirus HKU1 (PCR) Coronavirus 229E (PCR) SARS-CoV-2 (PCR) Coronavirus NL63 (PCR) Human Metapneumovir PCR Influenza Type A (PCR) Influenza Type B (PCR) M. pneumoniae (PCR) Parainfluenza 1 (PCR) Parainfluenza 2 (PCR) Parainfluenza 3 (PCR) Parainfluenza 4 (PCR) RSV (PCR) Entero/Rhino (PCR) Blood Type Antibody Screen Crossmatch Diagnostic Findings Chest X-Ray 02/20/24 09:34 XR chest 1V portable CLINICAL HISTORY: Chest pain, nonspecific COMPARISON STUDY: Chest CT April 21, 2018. Chest radiograph April 17, 2023. FINDINGS: There is no pneumothorax. There are suspected small bilateral pleural effusions. Hazy bibasilar opacities are present. There is interstitial thickening. The heart is moderately enlarged. Right hilar prominence is noted. IMPRESSION: 1. Cardiomegaly with interstitial pulmonary edema. 2. Small bilateral pleural effusions with hazy bibasilar opacities. 3. Right hilar prominence, likely due to pulmonary vasculature. This can be asse ssed on follow-up exams. ACT 112: Negative or not required by law. Electronically signed by: Kashmir Davis M.D. 02/20/2024 10:22 AM Medications Administered Current Inpatient Medications Acetaminophen (Acetaminophen 325 Mg Tab) 650 mg PO Q4H PRN PRN Reason: Pain or Fever Stop: 03/21/24 14:29 Albuterol (Albuterol Hfa 8 Gm Inhaler) 2 puffs INH Q4R PRN PRN Reason: shortness of breath or wheezing Stop: 03/21/24 14:29 Aspirin (Aspirin 81 Mg Ectab) 81 mg PO QAM [facility] Stop: 03/22/24 08:59 Last Admin: 02/21/24 07:58 Dose: 81 mg Atorvastatin Calcium (Atorvastatin 40 Mg Tab) 80 mg PO QAM [facility] Stop: 03/22/24 08:59 Last Admin: 02/21/24 07:57 Dose: 80 mg Bupropion HCl (Bupropion Sr 150 Mg Tabcr) 150 mg PO BID [facility] Stop: 03/21/24 20:59 Last Admin: 02/21/24 07:57 Dose: 150 mg Buspirone HCl (Buspirone 5 Mg Tab) 10 mg PO BID [facility] Stop: 03/21/24 20:59 Last Admin: 02/21/24 07:58 Dose: 10 mg Carvedilol (Carvedilol 6.25 Mg Tab) 6.25 mg PO BIDM [facility] Stop: 03/21/24 16:59 Last Admin: 02/21/24 07:57 Dose: 6.25 mg Dextrose (Dextrose 50% 50 Ml Syringe) 25 - 50 ml IV UD PRN; Protocol PRN Reason: Hypoglycemia Protocol Stop: 03/21/24 14:29 Escitalopram Oxalate (Escitalopram Oxalate 20 Mg Tab) [facility] [place] Stop: 03/22/24 08:59 Last Admin: 02/21/24 07:57 Dose: 20 mg Fluticasone Propionate (Fluticasone Propionate Na Spr 16 Gm Btl) 2 sprays NA QAM [facility] Stop: 03/22/24 08:59 Last Admin: 02/21/24 07:59 Dose: Not Given Glucagon (Glucagon For Inj 1 Mg Vial) 1 mg SQ UD PRN; Protocol PRN Reason: Hypoglycemia Protocol Stop: 03/21/24 14:29 Glucose (Glucose 40% Gel 15 Gm Tube) 15 - 30 gm PO UD PRN; Protocol PRN Reason: Hypoglycemia Protocol Stop: 03/21/24 14:29 Glucose (Glucose 10 Tab/Tube) 4 - 8 tab PO UD PRN; Protocol PRN Reason: Hypoglycemia Protocol Stop: 03/21/24 14:29 Pantoprazole Sodium (Protonix) 40 mg in 10 mls @ 5 mls/min IV Q12H [facility] Stop: 03/21/24 14:59 Last Admin: 02/21/24 02:49 Dose: 5 mls/min Insulin Aspart (Insulin Aspart Per Unit Charge) 0 units SC ACHS [facility] Stop: 03/21/24 16:29 Last Admin: 02/21/24 08:05 Dose: Not Given Levothyroxine Sodium (Levothyroxine Sodium 75 Mcg Tablet) 75 mcg PO DAILYBB [facility] Stop: 03/22/24 06:29 Last Admin: 02/21/24 06:23 Dose: 75 mcg Losartan Potassium (Losartan Potassium 50 Mg Tab) 50 mg PO QAM [facility] Stop: 03/22/24 08:59 Last Admin: 02/21/24 07:57 Dose: 50 mg Magnesium Hydroxide (Magnesium Hydroxide Susp 30 Ml Udc) 30 ml PO Q12H PRN PRN Reason: Constipation Stop: 03/21/24 14:29 Miscellaneous (Carbohydrates For Hypoglycemia ) 15 - 30 gm PO UD PRN PRN Reason: Hypoglycemia Protocol Stop: 03/21/24 14:29 Nitroglycerin (Nitroglycerin Sl 0.4 Mg/Tab Tab) 0.4 mg SL Q5M PRN PRN Reason: Chest Pain Stop: 03/21/24 14:29 Ondansetron HCl (Ondansetron Inj 2 Mg/Ml 2 Ml Vial) 4 mg IV Q6H PRN PRN Reason: Nausea Stop: 03/21/24 14:29 Polyethylene Glycol (Polyethylene (Miralax) 17 Gm Pack) 17 gm PO DAILY PRN PRN Reason: Constipation Stop: 03/21/24 14:29 Prednisolone Acetate (Prednisolone Acetate 1% Op Susp 5 Ml Btl) 1 drops OPL QID [facility] Stop: 03/21/24 14:29 Last Admin: 02/21/24 07:58 Dose: 1 drops (4) Hypertension Hypertension type: unspecified Qualified Code(s): I10 - Essential (primary) hypertension (6) Depression Depression Type: major depressive disorder Major depression recurrence: unspecified whether recurrent Active/Remission status: in remission of unsp ecified degree Qualified Code(s): F32.5 - Major depressive disorder, single episode, in full remission
--- NOTE | 2024-02-21 10:09 | Gastroenterology Progress Note ---
<Statement entered by David Liz MD - 02/21/24 14:51> I personally saw and examined the patient. I have reviewed the chart and agree with the documentation provided by the [employer] including discussion about the assessment, treatment and plan. Feels a little better with her shortness of breath. Can we get a cardiology consult to clear her for a push enteroscopy tomorrow. Her colonoscopy was done at [facility] in 2021 and her prior endoscopy was in 2019. N.p.o. after midnight Date of Service February 21, 2024 Assessment & Plan (1) Anemia: Plan: - continue with protonix 40mg IV bid. - continue to follow hgb/hct and transfuse as needed. - awaiting cardiology input. Admission and Anticipated Discharge Date Admission Date: February 20, 2024 Subjective Patient still feeling shortness of breath, though somewhat better since hospitalization. she reports having been given 2 units PRBC. no bowel movements since admission per patient. no nausea, vomiting, acid reflux, abdominal pain. She has not noticed any brbpr or melena. Awaiting cardiology input. 02/20/24 hgb 6.3 02/21/24 hgb 8.5. she reports a normal EGD in 2019. she reports a colonoscopy in 2021 that was unremarkable. Review of Systems Review of Systems: All systems reviewed & are unremarkable except as noted in HPI & below Physical Exam Constitutional: WD/WN, vitals as above Respiratory: normal respiratory effort, lungs clear to auscultation Cardiovascular: Rate/Rhythm: regular rate and regular rhythm Gastrointestinal (Abdomen): normal bowel sounds, soft, nontender, no hepatosplenomegaly Psychiatric: Orientation: alert and oriented x 3 Affect: euthymic affect Results & Data Results & Data Vital Signs (Past 12 Hours) Vital Signs Temp Pulse Pulse Resp BP Pulse Ox O2 Del Method 02/21/24 08:57 66 02/21/24 07:40 99.0 F 70 18 159/85 H 92 Room Air 02/21/24 03:48 98.6 F 69 18 156/83 H 96 Room Air 02/20/24 23:00 63 02/20/24 22:39 98.6 F 60 18 116/64 94 Room Air Coding Level of Care Code 78968 SUB INP/OBS CARE 1/25MIN Diagnoses Anemia D64.9 Anemia type: unspecified type (1) Anemia Anemia type: unspecified type Qualified Code(s): D64.9 - Anemia, unspecified
--- NOTE | 2024-02-21 21:35 | Cardiology Consultation ---
Date of Consultation February 21, 2024 Assessment & Plan (1) Chest pain: (2) Exertional dyspnea: (3) Elevated troponin: (4) Hypertension: (5) Symptomatic anemia: (6) Hyperlipidemia: Plan ASSESSMENT/PLAN: 1. Chest pain: Chest pain could be due to GI etiology given concern for upper GI bleed. She does give a history however of exertional chest discomfort over the past few months. She may have underlying CAD or it could be due to her profound anemia causing ischemic symptoms. She had prolonged chest discomfort with only minimally elevated troponins. Presentation is not consistent with acute coronary syndrome. Given patient's description of melena and profound an emia on presentation, would not pursue ischemic evaluation currently but rather pursue evaluation for bleed and corrective measures if able. If she was found to have CAD, bleeding should be corrected before revascularization. If chest discomfort continues despite improved anemia over time, would consider ischemic evaluation at that time. 2. Dyspnea: Likely related to her profound anemia. Cannot exclude ischemic heart disease as above. She appears euvolemic today. 3. Symptomatic anemia: Her profound anemia is likely responsible for her symptoms as above. As per GI. 4. Hypertension: Blood pressure normotensive to mildly hypertensive. Continue beta-sj and ARB. 5. Dyslipidemia: Continue high intensity statin therapy. 6. Elevated troponin: Likely due to demand ischemia in the setting of profound anemia. 7. Disposition: Recommend proceeding with GI evaluation for GI bleed. Will arrange for outpatient follow-up to consider ischemic evaluation in the future if symptoms persist despite improved hemoglobin. Thank you for allowing me to participate in the care of your patient. Please call for any other questions or concerns. Sincerely, Fan Russell M.D. History of Present Illness Reason for Consultation: preoperative eval; chest pain and sob Requesting Physician: Danyel Wilkinson MD Attending Physician: Danyel Wilkinson MD History of Present Illness Ms. Reddy is a very pleasant 73-year-old female with a history significant for type 2 diabetes, dyslipidemia, hypertension, GERD, stroke and hypothyroidism. She was hospitalized on 02/20/2024 after presenting with chest pain and shortness of breath. She has been noting black loose stools for a few weeks. She states that she typically is constipated. She has not noted any hematochezia, hematuria, or hematemesis. She denies abdominal pain, nausea or vomiting. She has been experiencing chest discomfort, which started on 02/19/2024 in the afternoon. It was constant and sharp in the upper chest, without radiation. She was not able to lay in bed due to the ongoing pain. Yesterday morning, she climbed a flight of stairs and had worsening chest discomfort and dyspnea on exertion. She summoned EMS. She was noted to have a hemoglobin of 6.3 on 02/20/2024. She has received 2 units of PRBC and feels better. The chest pain is completely resolved. She still has occasional shortness of breath. She admits that she has not been active in general due to chronic back pain. While grocery shopping however, she has had occasional chest discomfort on exertion over the past 4 to 5 months. She believes it has gradually worsened. She does not believe that she has had a recent hemoglobin done in the outpatient setting. She denies syncope, near syncope, palpitations, edema. She has been seen by GI who plans on performing a push enteroscopy tomorrow. Review of systems: As above. Family history: Mother had heart failure and A-fib. Brother had A-fib and open heart surgery (she described a thick heart with symptoms, but does not know the details). Social history: She denies tobacco or drug abuse. Occasional alcohol. She lives with her in [place]. She has a daughter with 4 children and 9 great-grandchildren. Her daughter lives in [place]. Her niece is Dr. Gill alvarenga. She was unaccompanied today. Allergies Allergy/AdvReac Type Severity Reaction Status Date / Time Sulfa (Sulfonamide Allergy Unknown Swelling Verified 02/20/24 11:18 Antibiotics) codeine AdvReac Intermediate CONFUSION Verified 02/20/24 11:18 Home Medications Medication Instructions Recorded Confirmed Type bupropion HCl 150 mg tablet,12 hr 150 mg PO BID 11/25/17 02/20/24 History sustained-release cholecalciferol (vitamin D3) 50 2,000 unit PO QAM 11/25/17 02/20/24 History mcg (2,000 unit) capsule (Vitamin D3) levothyroxine 75 mcg tablet 75 mcg PO QAM 11/25/17 02/20/24 History buspirone 10 mg tablet 10 mg PO BID 04/20/18 02/20/24 History escitalopram oxalate 20 mg tablet 20 mg PO QAM 04/20/18 02/20/24 History (Lexapro) fluticasone propionate 50 2 spray intranasal QAM 04/20/18 02/20/24 History mcg/actuation nasal spray,suspension (Flonase Allergy Relief) meclizine 12.5 mg tablet 12.5 mg PO TID PRN Dizziness 04/20/18 02/20/24 History pantoprazole 40 mg tablet,delayed 40 mg PO QAM 03/04/19 02/20/24 History release carvedilol 6.25 mg tablet 6.25 mg PO BID 03/05/19 02/20/24 History losartan 50 mg tablet 50 mg PO QAM 03/05/19 02/20/24 History albuterol sulfate 90 mcg/actuation 2 puffs inhalation Q4H PRN 10/30/19 02/20/24 Rx aerosol inhaler shortness of breath or wheezing #8 grams aspirin 81 mg tablet,delayed 81 mg PO QAM 09/15/22 02/20/24 History release atorvastatin 80 mg tablet 80 mg PO QAM 09/15/22 02/20/24 History famotidine 20 mg tablet 20 mg PO BID 09/15/22 02/20/24 History metformin 500 mg tablet,extended 500 mg PO QAM 09/15/22 02/20/24 History release 24 hr tramadol 50 mg tablet 50 mg PO Q6H PRN pain #20 tabs 05/26/23 02/20/24 Rx diclofenac sodium 75 mg 75 mg PO BID PRN Pain 01/04/24 02/20/24 History tablet,delayed release prednisolone acetate 1 % eye 1 drp OPL QID 02/20/24 02/20/24 History drops,suspension Problem List Depression Hypothyroidism (acquired) Hypertension (Acute) Elevated troponin (Acute) Exertional dyspnea (Acute) Anemia (Acute) CHF (congestive heart failure) (Acute) SOB (shortness of breath) (Acute) Precordial chest pain (Acute) Hypomagnesemia Elevated troponin Symptomatic anemia Lateral pain of left hip Neuroforaminal stenosis of lumbar spine Lumbar facet joint syndrome Adjacent segment disease of lumbar spine with history of fusion procedure Trigger thumb, left thumb Triquetral fracture Scaphoid fracture Shoulder sprain Fracture of greater tuberosity of left humerus Greater trochanteric bursitis CVA (cerebral vascular accident) Discharge planning issues DVT prophylaxis Depression Hypothyroidism GERD (gastroesophageal reflux disease) Abnormal brain CT (Acute) Hypertension (Acute) Headache (Acute) Confusion (Acute) Chest pain Chest pain, precordial (Acute) Multiple fractures of ribs of right side (Acute) Fall (Acute) Patient History Medical History Depression Hypothyroidism GERD (gastroesophageal reflux disease) History of COVID-19 fall 2022- no hosp; resolved Diabetes History of CVA (cerebrovascular accident) ~2019- chest/back pressure and elevated BP, memory loss; no deficits, no neuro at this time, managed by PCP Seasonal allergies prn inh for this, not asthma or copd, rare use of rescue inhaler Hyperlipidemia Hypertension Surgical History History of tooth extraction Hx of thumb surgery Open left trigger thumb release History of esophagogastroduodenoscopy (EGD) Hx of colonoscopy Status post lumbar surgery L4, L5, S1 Family History Mother Hypertension Stroke Alzheimer disease Father Lung cancer Brother Coronary heart disease Social History Smoking Status: Never smoker Second Hand Exposure: Yes ( smokes); Do You Dip or Chew Tobacco: No; Hx Alcohol Use: Yes Alcohol type: wine Hx Substance Use: No Preferred Language: [place] Citizen Communication Ability: Effective Visual Impairment: No Limitations Hearing Ability: Normal Emergency Service Restorer Required: No Beliefs That Will Affect Care: None marital status: Current Living Situation: Spouse Current Living Situation Comment: Lives with spouse current occupational status: employed 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 Alert and oriented. HEENT: Anicteric sclera. Neck: No JVD. No bruits. Normal carotid upstrokes bilaterally. Cardiac: Regular. Normal S1-S2. No murmurs, rubs, or gallops. Pulmonary: Clear to auscultation bilaterally without wheezes, rales, or rhonchi. Abdomen: Soft, nontender, nondistended, with normoactive bowel sounds. No bruits noted. Extremities: 2+ radial pulses bilaterally. 2+ posterior tibialis pulses bilaterally. No edema or cyanosis. Psychiatric: Affect appears appropriate. Chest: Tender to palpation in the upper chest, reproducing her chest pain, but less severe. No obvious bruise or rash in that area. Results & Data Vital Signs (Past 12 Hours) Vital Signs Temp Pulse Pulse Resp BP Pulse Ox O2 Del Method 02/21/24 19:23 36.8 C 62 16 131/76 91 Room Air 02/21/24 15:49 67 02/21/24 15:19 36.9 C 64 18 148/56 H 96 Room Air 02/21/24 11:27 36.7 C 72 18 148/82 H 90 Room Air Laboratory Results Laboratory Results - last 24 hr 02/20/24 02/21/24 02/21/24 22:39 06:01 06:24 WBC 5.12 RBC 3.26 L Hgb 8.4 L 8.5 L Hct 26.7 L 27.2 L MCV 83.4 MCH 26.1 MCHC 31.3 L RDW Std Deviation 46.6 H RDW Coeff of Clarita 15.2 H Plt Count 318 MPV 10.1 Reticulocyte % (Auto) 2.50 H Reticulocyte # 0.080 Peripher Smr Path Cons Sodium 138 Potassium 3.9 Chloride 104 Carbon Dioxide 27 Anion Gap 7 BUN 9 Creatinine 0.65 Est Cr Clr Drug Dosing 86.7 eGFR 94.07 BUN/Creatinine Ratio 13.8 Glucose 144 H POC Glucose 158 H Calcium 8.8 Phosphorus 3.6 Magnesium 1.8 Iron 32 L TIBC 449 Transferrin 321 Transferrin % Sat 7 L Ferritin 9.1 Troponin I High Sens 34.2 H Vitamin B12 241 Folate 9.62 02/21/24 02/21/24 02/21/24 07:06 11:22 16:18 WBC RBC Hgb Hct MCV MCH MCHC RDW Std Deviation RDW Coeff of Clarita Plt Count MPV Reticulocyte % (Auto) Reticulocyte # Peripher Smr Path Cons Sodium Potassium Chloride Carbon Dioxide Anion Gap BUN Creatinine Est Cr Clr Drug Dosing eGFR BUN/Creatinine Ratio Glucose POC Glucose 160 H 135 H 139 H Calcium Phosphorus Magnesium Iron TIBC Transferrin Transferrin % Sat Ferritin Troponin I High Sens Vitamin B12 Folate 02/21/24 20:16 WBC RBC Hgb Hct MCV MCH MCHC RDW Std Deviation RDW Coeff of Clarita Plt Count MPV Reticulocyte % (Auto) Reticulocyte # Peripher Smr Path Cons Sodium Potassium Chloride Carbon Dioxide Anion Gap BUN Creatinine Est Cr Clr Drug Dosing eGFR BUN/Creatinine Ratio Glucose POC Glucose 124 H Calcium Phosphorus Magnesium Iron TIBC Transferrin Transferrin % Sat Ferritin Troponin I High Sens Vitamin B12 Folate Diagnostic Findings Telemetry personally reviewed: Sinus rhythm. No arrhythmia. ECGs personally reviewed: ECG 02/20/2024 at 9:22 AM: Sinus 86 bpm. Cannot exclude inferior infarct. Cannot exclude anterior infarct. ECG 02/21/2024 at 6:16 AM: Sinus rhythm 66 bpm. ECG 02/21/2024 at 8:23 AM: Sinus rhythm with PAC. 68 bpm. Echo 02/20/2024: Normal LV size, wall motion, systolic function. EF 65-70%. Mild LVH. No significant valvular abnormalities. Labs reviewed and notable for high-sensitivity troponin peaked at 44; mildly elevated BNP; normal potassium; normal renal function; anemia with a hemoglobin as low as 6.3, up to 8.5 following transfusion x 2. GI consult/notes reviewed. History and physical report reviewed. Chest x-ray 02/20/2024: Interstitial thickening per radiology. Small bilateral pleural effusions. Medications Administered Current Inpatient Medications Acetaminophen (Acetaminophen 325 Mg Tab) 650 mg PO Q4H PRN PRN Reason: Pain or Fever Stop: 03/21/24 14:29 Albuterol (Albuterol Hfa 8 Gm Inhaler) 2 puffs INH Q4R PRN PRN Reason: shortness of breath or wheezing Stop: 03/21/24 14:29 Aspirin (Aspirin 81 Mg Ectab) 81 mg PO QAM [facility] Stop: 03/22/24 08:59 Last Admin: 02/21/24 07:58 Dose: 81 mg Atorvastatin Calcium (Atorvastatin 40 Mg Tab) 80 mg PO QAM [facility] Stop: 03/22/24 08:59 Last Admin: 02/21/24 07:57 Dose: 80 mg Bupropion HCl (Bupropion Sr 150 Mg Tabcr) 150 mg PO BID [facility] Stop: 03/21/24 20:59 Last Admin: 02/21/24 20:53 Dose: 150 mg Buspirone HCl (Buspirone 5 Mg Tab) 10 mg PO BID [facility] Stop: 03/21/24 20:59 Last Admin: 02/21/24 20:53 Dose: 10 mg Carvedilol (Carvedilol 6.25 Mg Tab) 6.25 mg PO BIDM [facility] Stop: 03/21/24 16:59 Last Admin: 02/21/24 17:03 Dose: 6.25 mg Dextrose (Dextrose 50% 50 Ml Syringe) 25 - 50 ml IV UD PRN; Protocol PRN Reason: Hypoglycemia Protocol Stop: 03/21/24 14:29 Escitalopram Oxalate (Escitalopram Oxalate 20 Mg Tab) [facility] Stop: 03/22/24 08:59 Last Admin: 02/21/24 07:57 Dose: 20 mg Fluticasone Propionate (Fluticasone Propionate Na Spr 16 Gm Btl) 2 sprays NA [facility] Stop: 03/22/24 08:59 Last Admin: 02/21/24 07:59 Dose: Not Given Glucagon (Glucagon For Inj 1 Mg Vial) 1 mg SQ UD PRN; Protocol PRN Reason: Hypoglycemia Protocol Stop: 03/21/24 14:29 Glucose (Glucose 40% Gel 15 Gm Tube) 15 - 30 gm PO UD PRN; Protocol PRN Reason: Hypoglycemia Protocol Stop: 03/21/24 14:29 Glucose (Glucose 10 Tab/Tube) 4 - 8 tab PO UD PRN; Protocol PRN Reason: Hypoglycemia Protocol Stop: 03/21/24 14:29 Pantoprazole Sodium (Protonix) 40 mg in 10 mls @ 5 mls/min IV Q12H [facility] Stop: 03/21/24 14:59 Last Admin: 02/21/24 16:18 Dose: 5 mls/min Insulin Aspart (Insulin Aspart Per Unit Charge) 0 units SC ACHS [facility] Stop: 03/21/24 16:29 Last Admin: 02/21/24 20:54 Dose: Not Given Levothyroxine Sodium (Levothyroxine Sodium 75 Mcg Tablet) 75 mcg PO DAILYBB [facility] Stop: 03/22/24 06:29 Last Admin: 02/21/24 06:23 Dose: 75 mcg Losartan Potassium (Losartan Potassium 50 Mg Tab) 50 mg PO QAM [facility] Stop: 03/22/24 08:59 Last Admin: 02/21/24 07:57 Dose: 50 mg Magnesium Hydroxide (Magnesium Hydroxide Susp 30 Ml Udc) 30 ml PO Q12H PRN PRN Reason: Constipation Stop: 03/21/24 14:29 Miscellaneous (Carbohydrates For Hypoglycemia ) 15 - 30 gm PO UD PRN PRN Reason: Hypoglycemia Protocol Stop: 03/21/24 14:29 Nitroglycerin (Nitroglycerin Sl 0.4 Mg/Tab Tab) 0.4 mg SL Q5M PRN PRN Reason: Chest Pain Stop: 03/21/24 14:29 Ondansetron HCl (Ondansetron Inj 2 Mg/Ml 2 Ml Vial) 4 mg IV Q6H PRN PRN Reason: Nausea Stop: 03/21/24 14:29 Polyethylene Glycol (Polyethylene (Miralax) 17 Gm Pack) 17 gm PO DAILY PRN PRN Reason: Constipation Stop: 03/21/24 14:29 Prednisolone Acetate (Prednisolone Acetate 1% Op Susp 5 Ml Btl) 1 drops OPL QID BLU Stop: 03/21/24 14:29 Last Admin: 02/21/24 20:53 Dose: 1 drops PG Care Time/CCT Total # of Minutes Spent Total Time Spent with Patient: Total time spent is greater than 50% in coordination of care (as documented) at patient's floor/unit and/or counseling patient: Coding Level of Care Code 70093 INT INP/OBS CARE 3/75MIN Diagnoses Chest pain R07.9 Exertional dyspnea R06.09 Elevated troponin R79.89 Hypertension I10 Hypertension type: unspecified Symptomatic anemia D64.9 Hyperlipidemia E78.5 (4) Hypertension Hypertension type: unspecified Qualified Code(s): I10 - Essential (primary) hypertension
--- NOTE | 2024-02-21 23:42 | Electrocardiogram Report ---
Test Reason : Blood Pressure : */* mmHG Vent. Rate : 86 BPM Atrial Rate : 86 BPM P-R Int : 158 ms QRS Dur : 66 ms QT Int : 370 ms P-R-T Axes : 38 -3 76 degrees QTcB Int : 442 ms Normal sinus rhythm Cannot rule out Inferior infarct , age undetermined Cannot rule out Anterior infarct , age undetermined Nonspecific ST abnormality Abnormal ECG When compared with ECG of 30-Oct-2019 14:14, Nonspecific ST abnormality is now Present Confirmed by Ryan Russell ([id number]) on 02/21/2024 11:42:33 PM Referred By: Confirmed By: Ryan Russell
--- NOTE | 2024-02-21 23:43 | Electrocardiogram Report ---
Test Reason : Blood Pressure : */* mmHG Vent. Rate : 68 BPM Atrial Rate : 68 BPM P-R Int : 168 ms QRS Dur : 70 ms QT Int : 430 ms P-R-T Axes : 28 1 59 degrees QTcB Int : 457 ms Sinus rhythm with Premature atrial complexes Nonspecific ST abnormality When compared with ECG of 21-Feb-2024 06:16, Premature atrial complexes are now Present Confirmed by Ryan Russell ([id number]) on 02/21/2024 11:43:04 PM Referred By: REFERRED SELF Confirmed By: Ryan Russell
--- NOTE | 2024-02-21 23:43 | Electrocardiogram Report ---
Test Reason : Blood Pressure : */* mmHG Vent. Rate : 66 BPM Atrial Rate : 66 BPM P-R Int : 168 ms QRS Dur : 76 ms QT Int : 440 ms P-R-T Axes : 38 1 57 degrees QTcB Int : 461 ms Normal sinus rhythm with sinus arrhythmia Nonspecific ST abnormality When compared with ECG of 20-Feb-2024 09:22, No significant change Confirmed by Ryan Russell ([id number]) on 02/21/2024 11:42:53 PM Referred By: REFERRED SELF Confirmed By: Ryan Russell
[2024-02-22 06:54] LABS: Hematocrit (blood only) 29.1 % (37.0-47.0); Mean Corpuscular Hemoglobin 26.1 pg (25.0-34.0); Mean Corpuscular Hgb Conc 30.9 g/dL (32.0-36.0); Mean Corpuscular Volume 84.3 fL (80.0-100.0); Mean Platelet Volume 9.7 fL (9.4-12.4); Platelet Count 309 K/uL (130-400); RDW Coefficient of Variation 15.4 % (11.5-14.5); RDW Standard Deviation 47.2 fL (36.4-46.3); Red Blood Count 3.45 M/uL (4.20-5.40)
--- NOTE | 2024-02-22 08:43 | History & Physical Bridge Note ---
Date of Service February 22, 2024 History & Physical Bridge Note I have examined the patient, reviewed the History & Physical and in the interval since the performance of the History & Physical I have noted the following changes of clinical significance: no changes noted. Appreciate cardiology input. Patient appears to have demand ischemia in the setting of acute anemia. Her hemoglobin is improved and so have her symptoms. As noted earlier she has had a colonoscopy in 2021. We will proceed with a push enteroscopy to see if there is any sources of her chronic anemia. If we do not find any source, we will proceed with an outpatient capsule endoscopy. Patient agrees with plan she understands the risks and benefits. N.p.o. now as already done. Agusto
--- NOTE | 2024-02-22 09:16 | Anesthesiology Consultation ---
Date of Service February 22, 2024 Assessment & Plan (1) Encounter for pre-operative examination: Chart Review Chart Review: Acceptable Risk for Surgery, Patient NOT seen in Pre Admission Testing and blasting entry specialist initiated Consults Requested none Proposed Anesthesia Anesthesia Type: MAC History Surgery Operation Date: 02/22/24 16:45 Proposed Procedures p Esophagogastroduodenoscopy Agusto Liz MD Height/Weight Height: 5 ft 1 in Weight: 101 kg Allergies Allergy/AdvReac Type Severity Reaction Status Date / Time Sulfa (Sulfonamide Allergy Unknown Swelling Verified 02/20/24 11:18 Antibiotics) codeine AdvReac Intermediate CONFUSION Verified 02/20/24 11:18 Medications Home Medications Medication Instructions Recorded Confirmed Last Taken bupropion HCl 150 mg tablet,12 hr 150 mg PO BID 11/25/17 02/20/24 02/19/24 sustained-release cholecalciferol (vitamin D3) 50 2,000 unit PO QAM 11/25/17 02/20/24 02/19/24 mcg (2,000 unit) capsule (Vitamin D3) levothyroxine 75 mcg tablet 75 mcg PO QAM 11/25/17 02/20/24 02/19/24 buspirone 10 mg tablet 10 mg PO BID 04/20/18 02/20/24 02/19/24 escitalopram oxalate 20 mg tablet 20 mg PO QAM 04/20/18 02/20/24 02/19/24 (Lexapro) fluticasone propionate 50 2 spray intranasal QAM 04/20/18 02/20/24 02/19/24 mcg/actuation nasal spray,suspension (Flonase Allergy Relief) meclizine 12.5 mg tablet 12.5 mg PO TID PRN Dizziness 04/20/18 02/20/24 Unknown pantoprazole 40 mg tablet,delayed 40 mg PO QAM 03/04/19 02/20/24 02/19/24 release carvedilol 6.25 mg tablet 6.25 mg PO BID 03/05/19 02/20/24 02/19/24 losartan 50 mg tablet 50 mg PO QAM 03/05/19 02/20/24 02/19/24 albuterol sulfate 90 mcg/actuation 2 puffs inhalation Q4H PRN 10/30/19 02/20/24 02/14/24 aerosol inhaler shortness of breath or wheezing #8 grams aspirin 81 mg tablet,delayed 81 mg PO QAM 09/15/22 02/20/24 02/19/24 release atorvastatin 80 mg tablet 80 mg PO QAM 09/15/22 02/20/24 02/19/24 famotidine 20 mg tablet 20 mg PO BID 09/15/22 02/20/24 02/19/24 metformin 500 mg tablet,extended 500 mg PO QAM 09/15/22 02/20/24 02/19/24 release 24 hr tramadol 50 mg tablet 50 mg PO Q6H PRN pain #20 tabs 05/26/23 02/20/24 Unknown diclofenac sodium 75 mg 75 mg PO BID PRN Pain 01/04/24 02/20/24 Unknown tablet,delayed release prednisolone acetate 1 % eye 1 drp OPL QID 02/20/24 02/20/24 02/19/24 drops,suspension Active Medications Generic Name Dose Route Start Last Admin Trade Name Freq PRN Reason Stop Dose Admin Aspirin 81 mg 02/21/24 09:00 02/22/24 08:32 Aspirin 81 Mg Ectab PO 03/22/24 08:59 81 mg QAM BLU Administration Atorvastatin Calcium 80 mg 02/21/24 09:00 02/22/24 08:32 Atorvastatin 40 Mg Tab PO 03/22/24 08:59 80 mg QAM BLU Administration Bupropion HCl 150 mg 02/20/24 21:00 02/22/24 08:33 Bupropion Sr 150 Mg Tabcr PO 03/21/24 20:59 150 mg BID BLU Administration Buspirone HCl 10 mg 02/20/24 21:00 02/22/24 08:32 Buspirone 5 Mg Tab PO 03/21/24 20:59 10 mg BID BLU Administration Carvedilol 6.25 mg 02/20/24 17:00 02/22/24 08:32 Carvedilol 6.25 Mg Tab PO 03/21/24 16:59 6.25 mg BIDM BLU Administration Escitalopram Oxalate 20 mg 02/21/24 09:00 02/22/24 08:32 Escitalopram Oxalate 20 Mg Tab PO 03/22/24 08:59 20 mg QAM BLU Administration Fluticasone Propionate 2 sprays 02/21/24 09:00 02/22/24 08:33 Fluticasone Propionate Na Spr 16 Gm Btl NA 03/22/24 08:59 Not Given QAM BLU Pantoprazole Sodium 40 mg in 10 mls @ 5 mls/min 02/20/24 15:00 02/22/24 04:00 Protonix IV 03/21/24 14:59 5 mls/min Q12H BLU Administration Insulin Aspart 0 units 02/20/24 16:30 02/22/24 08:30 Insulin Aspart Per Unit Charge SC 03/21/24 16:29 Not Given ACHS BLU Levothyroxine Sodium 75 mcg 02/21/24 06:30 02/22/24 06:04 Levothyroxine Sodium 75 Mcg Tablet PO 03/22/24 06:29 75 mcg DAILYBB BLU Administration Losartan Potassium 50 mg 02/21/24 09:00 02/22/24 08:32 Losartan Potassium 50 Mg Tab PO 03/22/24 08:59 50 mg QAM BLU Administration Prednisolone Acetate 1 drops 02/20/24 14:30 02/22/24 08:31 Prednisolone Acetate 1% Op Susp 5 Ml Btl OPL 03/21/24 14:29 1 drops QID BLU Administration Past Medical History Medical History Depression Hypothyroidism GERD (gastroesophageal reflux disease) History of COVID-19 fall 2022- no hosp; resolved Diabetes History of CVA (cerebrovascular accident) ~2019- chest/back pressure and elevated BP, memory loss; no deficits, no neuro at this time, managed by PCP Seasonal allergies prn inh for this, not asthma or copd, rare use of rescue inhaler Hyperlipidemia Hypertension Past Family History Family History Mother Hypertension Stroke Alzheimer disease Father Lung cancer Brother Coronary heart disease Past Surgical History Surgical History History of tooth extraction Hx of thumb surgery Open left trigger thumb release History of esophagogastroduodenoscopy (EGD) Hx of colonoscopy Status post lumbar surgery L4, L5, S1 Social History Smoking Status: Never smoker Do You Dip or Chew Tobacco: No Hx Alcohol Use: Yes Alcohol type: wine alcohol intake frequency: holidays/special occasions only Hx Substance Use: No substance use type: does not use Physical Exam Vital Signs Last Vital Signs Temp 36.7 C 02/22/24 07:46 Pulse 67 02/22/24 07:46 Resp 16 02/22/24 07:46 BP 158/81 H 02/22/24 07:46 Pulse Ox 96 02/22/24 07:46 O2 Del Method Room Air 02/22/24 07:46 O2 Flow Rate 2 02/22/24 04:14 Testing Laboratory Results 02/22/24 05:49 02/21/24 06:01 PT 10.6 Seconds (9.0-12.0) 02/20/24 09:30 INR 1.0 (0.9-1.1) 02/20/24 09:30 APTT 25 Seconds (21-31) 02/20/24 09:30 Urine Color Yellow 02/20/24 11:24 Urine Appearance Clear (Clear) 02/20/24 11:24 Urine pH 7.5 (4.5-7.5) 02/20/24 11:24 Ur Specific [place] 1.005 (1.000-1.030) 02/20/24 11:24 Urine Protein Negative (Negative) 02/20/24 11:24 Urine Glucose (UA) Negative (Negative) 02/20/24 11:24 Urine Ketones Negative (Negative) 02/20/24 11:24 Urine Nitrite Negative (Negative) 02/20/24 11:24 Ur Leukocyte Esterase 2+ (Negative) H 02/20/24 11:24 Urine WBC (Auto) 0-5 /hpf (0-5) 02/20/24 11:24 Urine RBC (Auto) 0-2 /hpf (0-2) 02/20/24 11:24 U Hyaline Cast (Auto) 0-2 /lpf (0-2) 02/20/24 11:24 U Epithel Cells (Auto) 0-2 /hpf (0-2) 02/20/24 11:24 Urine Bacteria (Auto) None Seen (None Seen) 02/20/24 11:24 Blood Type A Positive 02/20/24 10:17 Antibody Screen NEGATIVE 02/20/24 10:17 02/22/24 07:21 POC Glucose 156 H Electrocardiogram Date: 02/22/24 Findings: + NSR @ (69) Chest X-Ray Date: 02/20/24 CLINICAL HISTORY: Chest pain, nonspecific COMPARISON STUDY: Chest CT April 21, 2018. Chest radiograph April 17, 2023. FINDINGS: There is no pneumothorax. There are suspected small bilateral pleural effusions. Hazy bibasilar opacities are present. There is interstitial thickening. The heart is moderately enlarged. Right hilar prominence is noted. IMPRESSION: 1. Cardiomegaly with interstitial pulmonary edema. 2. Small bilateral pleural effusions with hazy bibasilar opacities. 3. Right hilar prominence, likely due to pulmonary vasculature. This can be assessed on follow-up exams. Echocardiogram Date: 02/20/24 EF: 65-70 LV Function: normal Other Findings: + LVH (mild) Valvular Disease: + no significant valvular disease
--- NOTE | 2024-02-22 09:59 | GI REPORT ---
[facility] Patient: RAIMUNDO MANUEL : 1950 Sex at : Female Age: 73 Years Procedure: Small bowel enteroscopy Date: 02/22/2024 Attending Physician: David Liz MD Referring MD: Danyel Wilkinson MD Indications: - Iron deficiency anemia - Obscure gastrointestinal bleeding Medications: - See the Anesthesia note for documentation of the administered medications Complications: - No immediate complications. Estimated Blood Loss: - Estimated blood loss: None. Procedure: - The pediatric colonoscope was introduced through the mouth and advanced to the proximal jejunum. - The patient tolerated the procedure well. - The small bowel enteroscopy was accomplished without difficulty. Findings: - The examined esophagus was normal. - A single small angiodysplastic lesion with no bleeding was found in the gastric body. Coagulation for bleeding prevention using argon plasma was successful. - A few angiodysplastic lesions with no bleeding were found in the fourth portion of the duodenum. Coagulation for bleeding prevention using argon beam at 0.3 liters/minute and 20 hicks was successful. - One angioectasia with no bleeding was found in the proximal jejunum. Coagulation for bleeding prevention using argon plasma was successful. Impression: - Normal esophagus. - A single non-bleeding angiodysplastic lesion in the stomach. Treated with argon plasma coagulation (APC). - A few non-bleeding angiodysplastic lesions in the duodenum. Treated with argon beam coagulation. - One non-bleeding angioectasia in the jejunum. Treated with argon plasma coagulation (APC). - No specimens collected. Recommendation: - Patient has a contact number available for emergencies. The signs and symptoms of potential delayed complications were discussed with the patient. Return to normal activities tomorrow. Written discharge instructions were provided to the patient. - Patient has a contact number available for emergencies. The signs and symptoms of potential delayed complications were discussed with the patient. Return to normal activities tomorrow. Written discharge instructions were provided to the patient. - Resume previous diet. Procedure Code(s): - 30920, Small intestinal endoscopy, enteroscopy beyond second portion of duodenum, not including ileum; with control of bleeding (eg, injection, bipolar cautery, unipolar cautery, laser, heater probe, stapler, plasma traffic controller cable) Diagnosis Code(s): - D50.9, Iron deficiency anemia, unspecified - K92.2, Gastrointestinal hemorrhage, unspecified - K31.819, Angiodysplasia of stomach and duodenum without bleeding - K55.20, Angiodysplasia of colon without hemorrhage CPT(R) - 2023 copyright [employer]. All Rights Reserved. The CPT codes, CCI edits and ICD codes generated are intended as suggestions and were generated based on input data. These codes are preliminary and upon engineering technologist review may be revised to meet current compliance and payer requirements. The provider is responsible for the final determination of appropriate codes, and modifiers. David Liz MD This document has been electronically signed. Note Initiated:02/22/2024 Note Completed:02/22/2024 9:58 AM [id number]
[2024-02-22 10:31] VITALS: O2SAT 92
--- NOTE | 2024-02-22 11:25 | Anesthesiology Progress Note ---
Date of Service February 22, 2024 Anesthesia Post Procedure Vital Signs Vital Signs: Temp Pulse Pulse Resp BP Pulse Ox O2 Del Method 02/22/24 10:30 61 14 113/55 L 92 Room Air 02/22/24 10:15 63 18 100/48 L 93 Room Air 02/22/24 10:03 67 18 106/56 L 95 Oxymask 02/22/24 09:26 65 02/22/24 09:19 36.4 C L 68 16 175/68 H 93 Room Air 02/22/24 07:46 36.7 C 67 16 158/81 H 96 Room Air 02/22/24 04:14 36.8 C 69 18 160/72 H 97 Nasal Cannula 02/22/24 00:00 71 02/21/24 22:20 36.6 C 68 18 153/76 H 92 Nasal Cannula 02/21/24 20:00 Nasal Cannula 02/21/24 19:23 36.8 C 62 16 131/76 91 Room Air 02/21/24 15:49 67 02/21/24 15:19 36.9 C 64 18 148/56 H 96 Room Air 02/21/24 11:27 36.7 C 72 18 148/82 H 90 Room Air O2 Flow Rate 02/22/24 10:30 02/22/24 10:15 02/22/24 10:03 8 02/22/24 09:26 02/22/24 09:19 02/22/24 07:46 02/22/24 04:14 2 02/22/24 00:00 02/21/24 22:20 2 02/21/24 20:00 1 02/21/24 19:23 02/21/24 15:49 02/21/24 15:19 02/21/24 11:27 Transfer of Care Handoff Completed per policy Notes Mental Status: alert / awake / arousable and participated in evaluation Patient Amnestic to Procedure: Yes Nausea / Vomiting: adequately controlled Pain: adequately controlled Airway Patency, RR, SpO2: stable & adequate BP & HR: stable & adequate Hydration State: stable & adequate Anesthetic Complications: no major complications apparent
[2024-02-22] MEDS: PROPOFOL IV EMULSION 10 MG/ML 20 ML VIAL IV ONE (11:34)
[2024-02-22] MEDS: LIDOCAINE 2% 2 ML VIAL/AMP(20MG/ML) INFIL ONE (11:34)
[2024-02-22 11:49] VITALS: BP 104/64; PULSE 63; RESP 18; TEMP 98.2
--- NOTE | 2024-02-23 09:28 | Discharge Summary ---
Discharge Summary Date of Service February 22, 2024 Principal Dx & Hospital Course #1 = Principal Diagnosis (1) Symptomatic anemia: (2) Elevated troponin: (3) Hypomagnesemia: (4) Hypertension: (5) Hypothyroidism (acquired): (6) Depression: Continue with buspirone and escitalopram. Notes For Next Care Provider Medication Changes From Visit None Admission HPI Per Admitting Provider Patient is a very pleasant 73-year-old female with history of diabetes mellitus type 2, hyperlipidemia, hypothyroidism, hypertension, Who came to the hospital because of weakness and shortness of breath, she was found to have a hemoglobin of 6.3 believed to be secondary to chronic GI loss, patient was tr ansfused with hemoglobin improved to 8.5, patient was seen by gastroenterology and plan for push enteroscopy. Patient told me that she had unremarkable EGD in 2018 and also colonoscopy on 2021 showing some polyps. I could not get any robust information confirming the presence of blood such as history of melena in the context of her presentation, that is very likely. We also patient does take NSAIDs and tramadol and low-dose aspirin chronically.Patient did have some troponin leak likely because of extreme anemia and demand ischemia, she had an echocardiogram yesterday showing EF of 65 to 70% with concentric LVH, this is more likely due to demand ischemia, patient was seen by cardiology and cleared, she was taken for EGD and push enteroscopy during which she was not found to have any bleeding source but she did have a few angiodysplasia that were cauterized. Patient H&H remained stable, she tolerated diet after the procedure, she will be discharged home with follow-up as outpatient. Updated Medication List Medication Instructions Recorded Confirmed Type bupropion HCl 150 mg tablet,12 hr 150 mg PO BID 11/25/17 02/20/24 History sustained-release cholecalciferol (vitamin D3) 50 2,000 unit PO QAM 11/25/17 02/20/24 History mcg (2,000 unit) capsule (Vitamin D3) levothyroxine 75 mcg tablet 75 mcg PO QAM 11/25/17 02/20/24 History buspirone 10 mg tablet 10 mg PO BID 04/20/18 02/20/24 History escitalopram oxalate 20 mg tablet 20 mg PO QAM 04/20/18 02/20/24 History (Lexapro) fluticasone propionate 50 2 spray intranasal QAM 04/20/18 02/20/24 History mcg/actuation nasal spray,suspension (Flonase Allergy Relief) meclizine 12.5 mg tablet 12.5 mg PO TID PRN Dizziness 04/20/18 02/20/24 History pantoprazole 40 mg tablet,delayed 40 mg PO QAM 03/04/19 02/20/24 History release carvedilol 6.25 mg tablet 6.25 mg PO BID 03/05/19 02/20/24 History losartan 50 mg tablet 50 mg PO QAM 03/05/19 02/20/24 History albuterol sulfate 90 mcg/actuation 2 puffs inhalation Q4H PRN 10/30/19 02/20/24 Rx aerosol inhaler shortness of breath or wheezing #8 grams aspirin 81 mg tablet,delayed 81 mg PO QAM 09/15/22 02/20/24 History release atorvastatin 80 mg tablet 80 mg PO QAM 09/15/22 02/20/24 History famotidine 20 mg tablet 20 mg PO BID 09/15/22 02/20/24 History metformin 500 mg tablet,extended 500 mg PO QAM 09/15/22 02/20/24 History release 24 hr tramadol 50 mg tablet 50 mg PO Q6H PRN pain #20 tabs 05/26/23 02/20/24 Rx diclofenac sodium 75 mg 75 mg PO BID PRN Pain 01/04/24 02/20/24 History tablet,delayed release prednisolone acetate 1 % eye 1 drp OPL QID 02/20/24 02/20/24 History drops,suspension Hospital Stay Data Consultations 02/20/24 10:38 ED Decision to Admit Stat 02/20/24 11:46 Consult Gastroenterology Routine 02/21/24 12:48 Consult Cardiology Routine Procedures Performed Operation Date: 02/22/24 16:45 Actual Procedures p Small Bowel Enteroscopy Hemostasis(Not Applicable) - David Liz MD Discharge Instructions Given to Patient (Per Discharging Provider) None Total Time Total Time Spent Total Time Spent (In Minutes): More than 30 minutes
--- NOTE | 2024-02-24 03:13 | Electrocardiogram Report ---
Test Reason : Blood Pressure : */* mmHG Vent. Rate : 69 BPM Atrial Rate : 69 BPM P-R Int : 174 ms QRS Dur : 74 ms QT Int : 432 ms P-R-T Axes : 36 4 55 degrees QTcB Int : 462 ms Normal sinus rhythm Nonspecific ST abnormality When compared with ECG of 21-Feb-2024 08:23, Premature atrial complexes are no longer Present Confirmed by Ryan Russell ([id number]) on 02/24/2024 3:12:32 AM Referred By: REFERRED SELF Confirmed By: Ryan Russell
== END 2024-02-22 14:20 | disposition home or self-care (01) | DRG 812 ==
LOC: ED 09:17 → SUATTDRO 10:54 → 2S 10:54